=== PATIENT | female | born 1950 | race Caucasian/White ===

== ENCOUNTER 2021-12-18 08:16 | Outpatient (REF) | payer MEDICARE, SELFPAY ==
--- NOTE | ~2021-12-18 | MM_ITS ---
EXAMINATION: MM SCREENING DIGITAL BREAST TOMOSYNTHESIS, BILATERAL CLINICAL INFORMATION: Screening. Asymptomatic. The lifetime risk of breast cancer based on the Tyrer-Cuzick Model is 3%. COMPARISON: Mammography: 11/18/2018, 06/06/2017, 10/14/2016 TECHNIQUE: Digital breast tomosynthesis is performed in both the craniocaudal and mediolateral oblique views along with computer-aided detection (CAD). Synthesized 2D images are generated from the tomosynthesis. FINDINGS: There are scattered areas of fibroglandular density (ACR BI-RADS breast composition Category b). There are no significant masses, abnormal calcifications, or other abnormalities. No developing density or interval architectural abnormality. Intramammary nodes bilateral upper outer quadrants are stable. There are some scattered benign coarse and vascular calcifications again seen. The axilla and skin contours are unremarkable. No significant changes from prior studies. MM/MM tomosynthesis screening BI IMPRESSION: No mammographic evidence of malignancy. ASSESSMENT: BI-RADS 2: Benign RECOMMENDATION: Routine annual mammography screening. This patient's information was entered into a reminder system with a target due date for their next mammogram.
--- NOTE | ~2021-12-18 | MM_ITS ---
EXAMINATION: BONE DENSITOMETRY CLINICAL INDICATION: Asymptomatic menopausal state. COMPARISON: Previous BD dated 11/18/2018 and baseline BD dated 03/08/2009, spine. This is the patient's baseline examination for the left forearm. TECHNIQUE: Using a BAUNAT DXA System (software version: 13.1) manufactured by [employer], dual-energy x-ray absorptiometry was performed of the lumbar spine and left forearm radius 33%. The images are of good technical quality. Bilateral hip replacements preclude bone density measurement hips. Summary results are attached. FINDINGS: AP SPINE L1-L3 (excluding L4): The data of L1-L4 has been changed to exclude the L4 vertebral body, because degenerative changes at this level may cause overestimation of lumbar spine density. Current: BMD 1.424 g/cm2, Z-score 3.2, T-score 2.1, normal, 0.7% increase from previous, 4.4% increase from baseline (<5% change is not significant). Prior: BMD 1.414 g/cm2. Baseline: BMD 1.364 g/cm2. LEFT FOREARM RADIUS 33%: BMD 0.872 g/cm2, Z-score 1.9, T-score 0.0, normal. Prior: Not previously measured. IDENTIFIED RISK FACTORS: Menopause, low calcium intake, history of fracture (adult), tobacco use (current smoker). HISTORY OF FRACTURE: Other. MEDICATIONS: None listed. MM/XR DEXA axial skeleton IMPRESSION: 1. DIAGNOSIS: Normal bone density based on the lowest T-score value of 0.0 in the forearm radius 33% applying World Health Organization criteria. 2. 10-YEAR FRACTURE RISK PREDICTION, FRAX: According to the guidelines, FRAX calculation should only be performed on patients in the osteopenia bone density category, and with femoral neck density measurement. Therefore, FRAX was not performed on this patient. 3. Treatment Recommendations: NOF guidelines recommend consideration for treatment in postmenopausal women and men age 50 and older presenting with the following: -A hip or vertebral (clinical or morphometric) fracture. -T-score less than or equal to -2.5 at the femoral neck or spine after appropriate evaluation to exclude secondary causes. -Low bone mass at the hip or spine and a 10-year fracture probability by FRAX of greater than or equal to 3% for hip fracture or greater than or equal to 20% for major osteoporotic fracture based on the [place] adapted WHO algorithm. 4. Other Recommendations: All treatment decisions require clinical judgment and consideration of individual patient factors, including patient preferences, comorbidities, previous drug use, risk factors not captured in the FRAX model (e.g. frailty, falls, vitamin D deficiency, increased bone turnover, interval significant decline in bone density) and possible under or overestimation of fracture risk by FRAX. FUTURE SCAN RECOMMENDATION: People with diagnosed cases of osteoporosis or at high risk for fracture should have regular bone mineral density tests. For patients eligible for Medicare, routine testing is allowed once every 2 years. The testing frequency can be increased to one year for patients who have rapidly progressing disease, those who are receiving or discontinuing medical therapy to restore bone mass, or have additional risk factors.
== END 2021-12-18 08:17 | disposition home or self-care (01) ==
LOC: HO.MAMMO 08:16
PROVIDERS: PCP Internal Medicine; Visit Provider Internal Medicine
DX: Z12.31 Encounter for screening mammogram for malignant neoplasm of breast (principal); Z13.820 Encounter for screening for osteoporosis; Z78.0 Asymptomatic menopausal state
CPT/HCPCS: 77063; 77067; 77080

== ENCOUNTER 2022-02-06 08:48 | Outpatient (REF) | payer MEDICARE, SELFPAY ==
[2022-02-06 11:48] LABS: MANUAL DIFF FLAG NO
[2022-02-06 11:58] LABS: Basophils Absolute Auto 0.1 X10*3/uL (0.0-0.2); Eosinophils Absolute Auto 0.2 X10*3/uL (0.0-0.4); Eosinophils Percent Auto 3.3 % (0-4); Hematocrit 40.8 % (37.0-47.0); Imm Gran Abs Auto 0.02 X10*3/uL (0.00-0.03); Imm Gran Pct Auto 0.3 % (0.0-0.4); Lymphocytes Absolute Auto 2.1 X10*3/uL (1.2-4.9); Lymphocytes Percent Auto 29.8 % (20-40); Mean Corpuscular HGB Conc 31.9 g/dl (31.0-35.0); Mean Corpuscular Hemoglobin 31.1 pg (27.0-33.0); Mean Corpuscular Volume 97.6 fL (80.0-98.0); Mean Platelet Volume 11.9 fL (9.4-12.3); Monocytes Absolute Auto 0.6 X10*3/uL (0.1-1.2); Monocytes Percent Auto 9.1 % (2-11); Neutrophils Absolute Auto 3.9 x10*3/uL (2.0-8.3); Neutrophils Percent Auto 56.5 % (45-73); Platelet Count 290 X10*3/uL (160-400); Red Blood Count 4.18 X10*6/uL (4.20-5.50); Red Cell Distribution Width 12.4 % (11.0-16.0); White Blood Count 6.9 X10*3/uL (4.8-10.8)
[2022-02-06 12:50] LABS: Vitamin D 25-OH Total 24.2 ng/mL (>30)
[2022-02-06 12:53] LABS: Alanine Aminotransferase 11 U/L (0-31); Albumin Level 4.2 g/dL (3.5-5.0); Alkaline Phosphatase 70 U/L (39-117); Anion Gap 16 (12-20); Aspartate Amino Transferase 15 U/L (5-31); Bilirubin Total 0.4 mg/dL (0.0-1.0); Blood Urea Nitrogen 14 mg/dL (9-16); Calcium 9.6 mg/dL (8.4-10.2); Carbon Dioxide 25 mmol/L (22-29); Chloride 106 mmol/L (96-108); Cholesterol 179 mg/dL; Estimated Glomerular Filt Rate > 60; Glucose Fasting 102 mg/dL (60-99); HDL Cholesterol 61 mg/dL; LDL Cholesterol Calculated 100 mg/dl; Potassium 4.2 mmol/L (3.3-5.1); Sodium 143 mmol/L (135-145); Total Protein 6.6 g/dL (6.5-8.0); Triglycerides 93 mg/dL
== END 2022-02-06 08:49 | disposition home or self-care (01) ==
LOC: HO.HMGCLDS 08:48
PROVIDERS: PCP Internal Medicine; Visit Provider Internal Medicine
DX: I10 Essential (primary) hypertension (principal); E78.00 Pure hypercholesterolemia, unspecified; M85.80 Other specified disorders of bone density and structure, unspecified site
CPT/HCPCS: 36415; 80053; 80061; 82306; 85025

== ENCOUNTER 2022-06-05 07:18 | Day surgery (SDC) | payer MEDICARE, SELFPAY ==
--- NOTE | 2022-06-04 14:33 | P.CONAN_ITS ---
HPI - Anesthesia Eval Consult details Narrative: 72yo F for Colonoscopy [facility] Past Medical History Medical History (Updated 06/05/22 @ 07:38 by Jackelyn Prakash, RN) Anxiety Degenerative joint disease Elevated cholesterol HTN (hypertension) Low vitamin D level Surgical History Surgical History H/O colonoscopy S/P hip replacement Social History Social History Patient Tobacco Use Status: Current everyday Tobacco user Tobacco use type: Cigarette Cigarettes Per Day: 10 Use of substances other than those prescribed or required for medical reasons: No Are you DNR?: No Advance Directives: No Advance Directives Information Provided: Yes Meds Allergies Allergy/AdvReac Type Severity Reaction Status Date / Time No Known Allergies Allergy Unverified 01/25/20 15:09 [No Known Allergies*] Home Medications Medication Instructions Recorded Confirmed Last Taken Type aspirin 81 mg tablet,delayed 81 mg PO DAILY 06/04/22 06/04/22 05/29/22 History release bupropion HCl 150 mg tablet,12 hr 1 tab PO BID 06/04/22 06/04/22 Unknown History sustained-release cholecalciferol (vitamin D3) 25 25 mcg PO DAILY 06/04/22 06/04/22 Unknown History mcg (1,000 unit) capsule cyanocobalamin (vitamin B-12) 100 mcg 06/04/22 06/04/22 Unknown History mcg tablet (Vitamin B-12) lisinopril 5 mg tablet 1 tab PO DAILY 06/04/22 06/05/22 06/05/22 06:00 History simvastatin 40 mg tablet 1 tab PO DAILY 06/04/22 06/04/22 Unknown History Exam Exam Date and Time: June 04, 2022 1433 Pertinent Lab Results Pertinent Lab Results: Laboratory Tests 02/06/22 02/06/22 09:18 09:18 WBC 6.9 Hgb 13.0 Hct 40.8 Plt Count 290 Sodium 143 Potassium 4.2 Chloride 106 Carbon Dioxide 25 BUN 14 Creatinine 0.73 Assessment and Plan Assessment Anesthesia Assessment: Chart Reviewed
[2022-06-05 07:39] VITALS: BMI 30.7
[2022-06-05 07:45] VITALS: BP 139/84; PULSE 95; RESP 16; TEMP 37.1; O2SAT 95
[2022-06-05] MEDS: Lactated Ringers 1,000 ML 100 ML IVCONT (08:02)
--- NOTE | 2022-06-05 08:28 | MHC.SHP ---
Pre-Procedural Eval Section A Date of Service: 06/05/22 Section B Chief Complaint: Personal history of colonic polyps,screening Details of Present Illness: see H*P no changes Relevant Family History (Specify if Yes): No Relevant Social History: None Present Medications: see Short Stay Collaborative assessment Medical History: No relevant PMH History of Previous Operations: No relevant previous surgery Allergies: Allergies Allergy/AdvReac Type Severity Reaction Status Date / Time No Known Allergies Allergy Unverified 01/25/20 15:09 [No Known Allergies*] Review of Systems Sugical H&P ROS: Negative: Constitution, Cardiovascular, Respiratory, Neurological, Psychiatric, Hem-Onc, Allergic/Immunologic, Gastrointestinal, Genitourinary, Musculoskeletal, Integumentary, Endocrine and Eyes/Ears/Nose/Throat Exam Surgical H&P Exam: Normal: HEENT, Normal: Heart, Normal: Lungs, Normal: Extremities, Normal: Abdomen, Normal: Skin and Normal: Neurological Plan Diagnosis/Plan: Unchanged I have reviewed the history and physical and performed a pertinent physical examination on my patient. No changes have occurred unless specified. Time Spent With Patient Time: Total time managing care of this patient today ____ minutes.
[2022-06-05 09:05] VITALS: BP 98/58; PULSE 75; RESP 16; TEMP 36.4; O2SAT 96
--- NOTE | 2022-06-05 09:08 | PM.OP ---
Brief Operative Note Date of Service: 06/05/22 Pre-op diagnosis: screening Post-op diagnosis: same (colon polyp) Procedure: colonoscopy Surgeon: Farhad Torres Anesthesia: MAC Was an Party Plan Sales Unit Advisor used for this Procedure?: No Estimated blood loss (mL): 0 Pathology: other Condition: stable Disposition: PACU
[2022-06-05 09:25] VITALS: BP 113/62; PULSE 72; RESP 18; TEMP 36.1; O2SAT 99
--- NOTE | 2022-06-05 19:42 | OP_ITS ---
SURGEON: Farhad Torres MD INDICATIONS: Colon cancer screening and prior history of adenomatous colon polyps. PREOPERATIVE DIAGNOSIS: POSTOPERATIVE DIAGNOSIS: PROCEDURE PERFORMED: Colonoscopy to the terminal ileum with snare polypectomy. ESTIMATED BLOOD LOSS: COMPLICATIONS: ANESTHESIA: Monitored anesthesia care. ASSISTANTS: SPECIMENS: DESCRIPTION OF PROCEDURE: A history and physical was performed. The risks and benefits of the procedure were explained to the patient. Informed consent was obtained. The procedure was performed on 06/05/2022. The patient was placed in the left lateral decubitus position. A digital rectal exam was performed and it was found to be normal. The Olympus pediatric video colonoscope was introduced into the rectum and advanced to the cecum without difficulty. The cecum was identified by translumination, palpation, and identification of the ileocecal valve. Examination was performed. The scope was removed. She tolerated both procedures well, and returned to the recovery area in stable condition. FINDINGS: The terminal ileum was normal. The visualized colonic mucosa was within normal limits without evidence of masses or ulcers. Quality of the prep was good. There was mild sigmoid diverticulosis. At 20 cm from anal verge was an 8 mm polyp which was removed with snare and recovered via suction. No other polyps were identified. Retroflexed examination showed small internal hemorrhoids and some hypertrophic anal papillae. IMPRESSION: Colon polyp. RECOMMENDATION: Follow up the biopsy results. MD BLANKA Jones/ADRIAN / [id number]
== END 2022-06-05 09:52 | disposition home or self-care (01) ==
PROVIDERS: PCP Internal Medicine; Visit Provider Internal Medicine Gastroenterology
PROC: 0DJD8ZZ Inspection of Lower Intestinal Tract, Via Natural or Artificial Opening Endoscopic (ICD-10-PCS; CPT 45378; principal; 2022-06-05 08:40)
DX: Z12.11 Encounter for screening for malignant neoplasm of colon (principal); Z86.010 Personal history of colon polyps; D12.5 Benign neoplasm of sigmoid colon; K57.30 Diverticulosis of large intestine without perforation or abscess without bleeding; K64.8 Other hemorrhoids; K62.89 Other specified diseases of anus and rectum; I10 Essential (primary) hypertension; E78.00 Pure hypercholesterolemia, unspecified; E55.9 Vitamin D deficiency, unspecified; Z79.82 Long term (current) use of aspirin; Z79.899 Other long term (current) drug therapy; F17.210 Nicotine dependence, cigarettes, uncomplicated
CPT/HCPCS: 45385; 88305

== ENCOUNTER 2023-03-05 09:34 | Outpatient (AMB) | payer MEDICARE, SELFPAY ==
[2023-03-05 09:46] VITALS: BP 138/88; PULSE 93; TEMP 36.8; O2SAT 94; BMI 31.1
--- NOTE | 2023-03-05 09:46 | AM.OFFWIN_ITS ---
Intake Vital Signs 03/05/23 09:46 Height 5 ft 5 in Weight 187 lb BMI 31.1 BP 138/88 Blood Pressure Location Lt brachial Position Sitting Pulse 93 Pulse Source Pulse Oximeter Temp 98.2 F Temp Source Temporal Artery Scan Pulse Oximetry (%) 94 Oxygen Delivery Method Room Air Intake Visit Reasons: [facility] Cough, sinus (masked) Intake Note: pt is here for c/o cough and sinus congestion Patient Tobacco Use Status: Current everyday Tobacco user Allergies No Known Allergies [No Known Allergies*] Allergy (Verified 03/05/23 09:55) Do you need a note to return to daycare/school/sports/work: Yes HPI HPI Comments History of Present Illness Details This is a 73-year-old female with a past medical history of depression, hypertension and hyperlipidemia presenting for evaluation of a cough and sinus congestion that she has had for the past 1 week. The patient states that her cough is worse in the morning and it takes approximately 1 hour for her to clear her mucus. Patient has been taking Mucinex daily with increased clear fluids. Patient denies having any fevers, chills, chest pain or shortness of breath however does report poor sleep secondary to her cough. [facility] Medical History Anxiety Low vitamin D level Degenerative joint disease Elevated cholesterol HTN (hypertension) Surgical History S/P hip replacement H/O colonoscopy Social History Patient Tobacco Use Status: Current everyday Tobacco user Tobacco use type: Cigarette Cigarettes Per Day: 10 Review of Systems Const All systems reviewed & are unremarkable except as noted in HPI and below Denies chills, Reports fatigue, Denies fever(s) and Denies night sweats Eyes Reports as per HPI ENT Reports as per HPI Card Denies dyspnea and Denies dyspnea on exertion Resp Reports as per HPI, Reports chest congestion, Reports cough, Denies hemoptysis, Denies dyspnea, Denies dyspnea on exertion and Denies wheezing Neuro Reports no additional complaints Psych Reports no additional complaints Endo Reports no additional complaints and Reports fatigue Aller/Immun Denies wheezing Physical Exam Vital Signs: Last Vital Signs Temp 98.2 F 03/05/23 09:46 Pulse 93 03/05/23 09:46 BP 138/88 03/05/23 09:46 Pulse Ox 94 03/05/23 09:46 Oxygen Delivery Method Room Air 03/05/23 09:46 BMI result Body Mass Index 31.1 POX 94% on room air; afebrile Const General: cooperative, healthy appearing, comfortable and no acute distress; No ill appearing Nutritional Appearance: well nourished Orientation/consciousness: patient oriented x3 Limitations: no limitations HEENT Head: Yes normal to inspection Ears: hearing grossly normal bilaterally, external ears normal, TM's normal bilaterally and EAC's normal General nose exam: Normal external nose present Face and sinus: Yes normal facial exam and Yes sinuses nontender Mouth: Normal oral and palatal mucosa present and oropharynx normal Throat: Yes posterior oropharynx normal Eyes General: appearance normal, both eyes and all related structures Alignment and Position: alignment normal Eyelids: Yes eyelids normal Conjunctivae: conjunctivae normal Sclerae: sclerae normal Pupils: Equal, round and reactive pupils present EOM: EOMs intact bilaterally Neck Lymphatic: no lymphadenopathy noted Resp Effort & Inspection: normal respiratory effort, able to speak in complete sentences, no audible wheezes, no cough, no respiratory distress and other ( No tachypnea) Auscultation: no crackles, no rales, no rhonchi, no wheezes and diminished lung sounds on the left (base) Cardio Rate: regular rate Rhythm: regular rhythm Skin General skin exam: no rashes or lesions noted Neuro General: patient oriented x3 Cranial nerves: Yes Equal, round and reactive pupils present Psych Appearance: grossly normal Mental Status: mental status grossly normal Insight: Good insight present (Psych) Judgement: Good judgement present (Psych) Results Reviewed Results Reviewed: CXR reviewed with patient. Assessment & Plan Assessment & Plan (1) Cough: Code(s): R05.9 - Cough, unspecified Orders: Orders XR chest 2V Today R05.9 - Cough, unspecified Medications: New benzonatate 100 mg PO TID PRN 20 caps 0RF cough Patient Instructions: Patient to continue mucinex daily and patient will be prescribed tessalon for additional management of her cough; there are no infiltrates noted on imaging. Coding Level of Care Code Est Pt Level 3 (17911) Diagnoses Cough R05.9 Time Spent (min) 20
== END 2023-03-05 10:30 | disposition home or self-care (01) ==
PROVIDERS: PCP Internal Medicine; Visit Provider Physician Assistant
DX: R05.9 Cough, unspecified (principal)
CPT/HCPCS: 99213

== ENCOUNTER 2023-03-05 10:12 | Outpatient (REF) | payer MEDICARE, SELFPAY ==
--- NOTE | ~2023-03-05 | XR_ITS ---
EXAMINATION: XR CHEST CLINICAL INFORMATION: Cough COMPARISON: None available. TECHNIQUE: 2 views of the chest were obtained. FINDINGS: Heart size within normal limits. Mediastinum is unremarkable. Aortic calcifications are seen. Mild bibasilar atelectasis. No vascular congestion, consolidations or effusions. Degenerative changes. XR/XR chest 2V IMPRESSION: Mild basilar atelectasis.
== END 2023-03-05 10:13 | disposition home or self-care (01) ==
LOC: HO.HMGCX 10:12
PROVIDERS: PCP Internal Medicine; Visit Provider Physician Assistant
DX: R05.9 Cough, unspecified (principal)
CPT/HCPCS: 71046

== ENCOUNTER 2023-06-05 10:12 | Inpatient (IN) | payer MEDICARE, SELFPAY ==
[2023-06-05] VITALS (10 sets, daily range): BP systolic 139–170; BP diastolic 67–79; PULSE 85–100; RESP 20; TEMP 36–37.2; O2SAT 88–93; BMI 30.4; BMI 31.5
--- NOTE | ~2023-06-05 | CT_ITS ---
EXAMINATION: CT ANGIOGRAM OF THE CHEST WITH AND WITHOUT CONTRAST (CT PULMONARY ANGIOGRAM FOR PE) CLINICAL INFORMATION: Reason for Exam + dimer sob hypoxia COMPARISON: None available. TECHNIQUE: Prior to contrast administration, noncontrast localization images were obtained. Subsequently, multidetector volumetric imaging was performed from the thoracic inlet to below the diaphragms following the administration of 65 mL Omnipaque 350 intravenous contrast. No contrast reaction reported Sagittal, coronal, and MIP oblique sagittal reformatted images were obtained on the CT workstation, uploaded to PACS, and reviewed. This CT examination was performed using dose optimization techniques as appropriate, variously including the following: *Automated exposure control *Adjustment of mA and/or kV according to patient size (this includes techniques or standardized protocols for targeted exams where dose is matched to indication/reason for exam; i.e. extremities or head) *Use of iterative reconstruction technique Total exam dose-length product 132 mGy-cm FINDINGS: QUALITY OF STUDY/CONTRAST BOLUS: Satisfactory. PULMONARY ARTERIES: No pulmonary emboli. THORACIC AORTA: No aneurysm. LUNG: Bilateral bronchial wall thickening. Mild bronchiectasis with filling defects in peripheral bronchi most notably involving the lower lobes. Small bibasilar dependent airspace disease. No suspicious nodule identified. PLEURA: No pleural effusion or pneumothorax. MEDIASTINUM: Normal heart size. Calcification of the aortic valve. No pericardial effusion. 1.4 cm precarinal lymph node (image 21, series 5). 1.4 cm subcarinal node (image 24). 1.2 cm right hilar node (image 29). 1.0 cm left hilar node (image 25). No evidence of septal bowing or right heart strain. Uncoiled aorta, suggesting hypertension. CORONARY ARTERY CALCIFICATION: Mild. CHEST WALL/AXILLA: No axillary or internal mammary lymphadenopathy by size criteria. OSSEOUS STRUCTURES: No acute finding. Degenerative changes of the shoulders and spine. UPPER ABDOMEN: Subcentimeter gallstone. No evidence of gallbladder wall thickening or pericholecystic inflammatory change. No reflux of contrast into the hepatic veins to suggest elevated right heart pressures. CT/CT angio chest PE protocol IMPRESSION: No evidence of pulmonary embolism. Bilateral bronchial wall thickening. Mild bronchiectasis with filling defects in peripheral bronchi most notably involving the lower lobes, possibly representing inspissated secretions and/or aspirated material. Small bibasilar dependent airspace disease suggesting infiltrates and/or atelectasis. Mild mediastinal and bilateral hilar adenopathy, nonspecific, possibly reactive. Additional findings, as above. VTE: negative
--- NOTE | ~2023-06-05 | XR_ITS ---
EXAMINATION: XR CHEST CLINICAL INFORMATION: Shortness of breath. COMPARISON: Chest radiograph 03/05/2023. TECHNIQUE: 2 views of the chest were obtained. FINDINGS: Stable cardiomediastinal silhouette. Increased diffuse interstitial coarsening with subtle more bibasilar airspace infiltrates. Small bilateral pleural effusions best visualized on the lateral view. No pneumothorax. Thoracic spondylosis. No acute osseous findings. XR/XR chest 2V IMPRESSION: Findings are suggestive of an atypical infectious/inflammatory process with early infiltrates in the lower lungs as well as a small left-sided pleural effusion.
--- NOTE | 2023-06-05 10:26 | ECG_ITS ---
Test Reason : SOB Blood Pressure : / mmHG Vent. Rate : 094 BPM Atrial Rate : 094 BPM P-R Int : 132 ms QRS Dur : 088 ms QT Int : 346 ms P-R-T Axes : 065 051 050 degrees QTc Int : 432 ms Sinus rhythm with Premature supraventricular complexes Nonspecific ST abnormality Abnormal ECG No previous ECGs available Referred By: Graciela Almazan Electronically Signed By:Shamar Senior
--- NOTE | 2023-06-05 11:00 | PC.NURSE ---
pt alert and oriented. comes to ED with SOB and cough for 1.5 weeks. reports DON and weakness. Reports swelling in feet increased from baseline, non pitting. denies CP, n/v/d. Pt is a smoker, no diagnosed COPD per pt. pt found to be 88% spO2 on RA, placed on 2.5 L, satting 91-93%. EKG done, IV inserted and labs drawn.
[2023-06-05 11:02] LABS: MANUAL DIFF FLAG NO
[2023-06-05 11:04] LABS: Basophils Absolute Auto 0.1 X10*3/uL (0.0-0.2); Basophils Percent Auto 0.6 % (0-2); Eosinophils Percent Auto 0.3 % (0-4); Hematocrit 36.4 % (37.0-47.0); Hemoglobin 12.8 g/dl (12.0-16.0); Imm Gran Abs Auto 0.09 X10*3/uL (0.00-0.03); Lymphocytes Absolute Auto 1.2 X10*3/uL (1.2-4.9); Lymphocytes Percent Auto 12.9 % (20-40); Mean Corpuscular HGB Conc 35.2 g/dl (31.0-35.0); Mean Corpuscular Hemoglobin 32.3 pg (27.0-33.0); Mean Corpuscular Volume 91.9 fL (80.0-98.0); Mean Platelet Volume 11.2 fL (9.4-12.3); Monocytes Absolute Auto 1.3 X10*3/uL (0.1-1.2); Monocytes Percent Auto 14.7 % (2-11); Neutrophils Absolute Auto 6.4 x10*3/uL (2.0-8.3); Neutrophils Percent Auto 70.5 % (45-73); Platelet Count 285 X10*3/uL (160-400); Red Blood Count 3.96 X10*6/uL (4.20-5.50); Red Cell Distribution Width 11.4 % (11.0-16.0); White Blood Count 9.1 X10*3/uL (4.8-10.8)
[2023-06-05 11:24] LABS: COVID-19 Test Negative (Negative); IDNOW Serial# 08D9AD1C; IDNOW Serial# 152EDE1D; Influenza A Negative (Negative); Influenza B2 Negative (Negative)
[2023-06-05] MEDS: Albuterol Sulfate 2.5 MG, Albuterol/Iprat 2.5/0.5MG 3 ML 3 ML INHALE (11:24)
[2023-06-05 11:28] LABS: Alanine Aminotransferase 50 U/L (0-31); Albumin Level 3.8 g/dL (3.5-5.0); Alkaline Phosphatase 96 U/L (39-117); Anion Gap 14 (12-20); Aspartate Amino Transferase 70 U/L (5-31); Bilirubin Direct 0.3 mg/dL (0.0-0.5); Bilirubin Total 0.6 mg/dL (0.0-1.0); Blood Urea Nitrogen 12 mg/dL (9-16); Calcium 9.8 mg/dL (8.4-10.2); Carbon Dioxide 29 mmol/L (22-29); Chloride 92 mmol/L (96-108); Creatinine Clr Calc Pharmacy 77.3; Estimated Glomerular Filt Rate > 60; Glucose Random 161 mg/dL (60-115); Potassium 3.5 mmol/L (3.3-5.1); Sodium 131 mmol/L (135-145); Total Protein 7.1 g/dL (6.5-8.0)
[2023-06-05 11:38] LABS: B Type Natriuretic Peptide 63 pg/mL (<100)
[2023-06-05 11:38] LABS: D Dimer High Sensitivity 392 NG/ML
--- NOTE | 2023-06-05 12:06 | ED.GENADULT ---
HPI - General Adult General Chief complaint: Upper Respiratory Symptoms Stated complaint: cold like symptoms Time Seen by Provider: 06/05/23 11:06 Source: patient and family (daughter ) Mode of arrival: ambulatory Limitations: no limitations History of Present Illness HPI narrative: 73 year old female hx of HLD, HTN presents w/ cough, shortness of breath ( worse w/ exertion) for about a week worsening. Reports cough is very uncomfortable and nonproductive in nature. Reports recent viral illness that just seems to not be going away. Also hasnt been moving around as much as usual due to sob therefore has noter her LE have both been more swollen than usual ( feet and ankles ). No recent sick contacts. Doesn't wear home O2. Not a smoker quit 2 weeks ago. No fevers, chills, cp, n/v/d, abd pain, headache. Related Data Home Medications Medication Instructions Recorded Confirmed aspirin 81 mg tablet,delayed 81 mg PO DAILY 06/04/22 06/04/22 release bupropion HCl 150 mg tablet,12 hr 1 tab PO BID 06/04/22 06/04/22 sustained-release cholecalciferol (vitamin D3) 25 25 mcg PO DAILY 06/04/22 06/04/22 mcg (1,000 unit) capsule cyanocobalamin (vitamin B-12) 100 mcg 06/04/22 06/04/22 mcg tablet (Vitamin B-12) lisinopril 5 mg tablet 1 tab PO DAILY 06/04/22 06/05/22 simvastatin 40 mg tablet 1 tab PO DAILY 06/04/22 06/04/22 Previous Rx's Medication Instructions Recorded benzonatate 100 mg capsule 100 mg PO TID PRN cough #20 caps 03/05/23 Allergies Allergy/AdvReac Type Severity Reaction Status Date / Time No Known Allergies Allergy Verified 03/05/23 09:55 [No Known Allergies*] Review of Systems Review of Systems: Constitutional : No Weight loss, No Fever, No Chills, + Fatigue, + Malaise ENT/Mouth : No sore throat, No Rhinorrhea Eyes: No Eye Pain, No Swelling, No Redness Cardiovascular : No Chest Pain, + SOB, + Dyspnea on Exertion, No Orthopnea, No Edema, No Palpitations Respiratory : + Cough, No Sputum, + Wheezing Gastrointestinal : No Nausea, No Vomiting, No Diarrhea, No Constipation, No abdominal Pain, No Hematochezia, No Melena Genitourinary : No Dysuria, No Urinary Frequency, No Hematuria, Musculoskeletal : No joint pain, No Myalgias, No Joint Swelling Skin : No Skin Lesions, No rash Neuro : No Weakness, No Numbness, No Dizziness, No Headache Psych : No Anxiety/Panic, No Depression All other systems reviewed and are negative Yes all other systems are reviewed and are negative [facility] Past Medical History Attestation statement: The following information was validated with the patient. Source: old records reviewed and nursing notes reviewed Medical History Anxiety Low vitamin D level Degenerative joint disease Elevated cholesterol HTN (hypertension) Surgical History S/P hip replacement H/O colonoscopy Social History Social History Patient Tobacco Use Status: Current everyday Tobacco user Tobacco use type: Cigarette Cigarettes Per Day: 10 Smoked in Last 30 Days: Yes Use of substances other than those prescribed or required for medical reasons: No Advance Directives: No Advance Directives Information Provided: No Physical Exam ED Vital Signs: Vital Signs - 24 hr 06/05/23 10:23 06/05/23 10:45 06/05/23 10:57 Temperature 98.8 F Pulse Rate 95 85 Respiratory Rate 20 20 Blood Pressure 154/79 H Pulse Oximetry 90 L 88 L 88 L Oxygen Delivery Method Room Air Room Air Room Air Oxygen Flow Rate 06/05/23 10:58 06/05/23 11:26 06/05/23 11:58 Temperature 98.5 F Pulse Rate 88 89 88 Respiratory Rate 20 20 20 Blood Pressure 144/76 H Pulse Oximetry 93 93 Oxygen Delivery Method Nasal Cannula Room Air Oxygen Flow Rate 2.5 3 BMI result Body Mass Index 30.4 hypoxia --> placed on 2.5 L NC Appearance: Alert.? Oriented X3.? No acute distress.? Head: Normocephalic, atraumatic, no step-offs or deformities Eyes: Pupils equal, round and reactive to light.? ENT: Pharynx normal.? Neck: Normal inspection.? Neck supple.? CVS: Normal heart rate and rhythm.? Pulses normal.? Respiratory: No respiratory distress.? Breath sounds w/ bl LE crackles w/ b/l moderate wheezing. Abdomen: Soft and nontender.? Skin: Skin warm and dry.? Normal skin color.? Normal skin turgor.? Extremities: No lower extremity edema.? No calf ttp. 5/5 strength to bilateral upper and lower extremities Neuro: Oriented X 3.? No motor deficit.? No sensory deficit. CN 2-12 intact Course Reevaluation(s) Reevaluation #1: CBC unremarkable. Chemistry with low sodium, normal saline ordered. BNP within normal limits. Influenza and Covid negative. Troponin pending, lactic acid pending . EKG also pending. Age adjusted D-dimer still + --> CTA ordered. Spoke to hospitalist looking to admit for pna w/ hypoxia. Patient aware. Hospitalist will admit. Aware that CTA is pending. Time: 12:15 Medications Administered Discontinued Medications Generic Name Dose Route Start Last Admin Trade Name Freq PRN Reason Stop Dose Admin Albuterol Sulfate 2.5 mg/ 0 mg 06/05/23 11:22 06/05/23 11:24 Albuterol/Ipratropium 3 ml INHALE 06/05/23 11:23 5 dose ONCE ONE Administration Medical Decision Making Medical Decision Making MDM Narrative: 73 yo f presents w/ cough, sob s/p viral illness PE w/ hypoxia and Breath sounds w/ bl LE crackles w/ b/l moderate wheezing. Suspected pneumonia versus bronchitis with acute hypoxic respiratory failure. Unlikely pulmonary embolism, ACS, dissection, pneumothorax. Plan at this time labs, imaging. Differential Diagnosis Differential Diagnoses: The differential diagnosis associated with the presentation includes Suspected pneumonia versus bronchitis with acute hypoxic respiratory failure. Unlikely pulmonary embolism, ACS, dissection, pneumothorax. Admission/Observation Consideration of admission/observation: Escalation of care including admission/observation considered Likely Consult Healthcare Provider Management of the patient was discussed with: Hospitalist Lab Data [facility] Lab Attestation statement: I reviewed the patient's lab results. 06/05/23 10:52 06/05/23 10:52 Labs: Lab Results 06/05/23 06/05/23 06/05/23 Range/Units 10:51 10:52 11:20 WBC 9.1 (4.8-10.8) X10*3/uL RBC 3.96 L (4.20-5.50) X10*6/uL Hgb 12.8 (12.0-16.0) g/dl Hct 36.4 L (37.0-47.0) % MCV 91.9 (80.0-98.0) fL MCH 32.3 (27.0-33.0) pg MCHC 35.2 H (31.0-35.0) g/dl RDW 11.4 (11.0-16.0) % Plt Count 285 (160-400) X10*3/uL MPV 11.2 (9.4-12.3) fL Immature Gran % (Auto) 1.0 H (0.0-0.4) % Neut % (Auto) 70.5 (45-73) % Lymph % (Auto) 12.9 L (20-40) % Armstrong % (Auto) 14.7 H (2-11) % Eos % (Auto) 0.3 (0-4) % Baso % (Auto) 0.6 (0-2) % Lymph # (Auto) 1.2 (1.2-4.9) X10*3/uL Armstrong # (Auto) 1.3 H (0.1-1.2) X10*3/uL Eos # (Auto) 0.0 (0.0-0.4) X10*3/uL Baso # (Auto) 0.1 (0.0-0.2) X10*3/uL Abs Immat Gran (auto) 0.09 H (0.00-0.03) X10*3/uL Absolute Neuts (auto) 6.4 (2.0-8.3) x10*3/uL Absolute Nucleated RBC 0.000 (0.0-0.012) X10*3/uL Nucleated RBC % (auto) 0.0 (0.0-0.2) /100WBC D-Dimer High Sensitivty 392 NG/ML Sodium 131 L (135-145) mmol/L Potassium 3.5 (3.3-5.1) mmol/L Chloride 92 L (96-108) mmol/L Carbon Dioxide 29 (22-29) mmol/L Anion Gap 14 (12-20) BUN 12 (9-16) mg/dL Creatinine 0.69 (0.5-1.4) mg/dL Estim Creat Clear Calc 77.3 Estimated GFR > 60 Random Glucose 161 H (60-115) mg/dL Calcium 9.8 (8.4-10.2) mg/dL Magnesium 2.0 (1.6-2.6) mg/dL Total Bilirubin 0.6 (0.0-1.0) mg/dL Direct Bilirubin 0.3 (0.0-0.5) mg/dL AST 70 H (5-31) U/L ALT 50 H (0-31) U/L Alkaline Phosphatase 96 (39-117) U/L B-Natriuretic Peptide 63 (<100) pg/mL Total Protein 7.1 (6.5-8.0) g/dL Albumin 3.8 (3.5-5.0) g/dL COVID-19 ([place]) Negative (Negative) COVID-19 Clin Com See Note Influenza Type A (DANIELA) Negative (Negative) Influenza Type B (DANIELA) Negative (Negative) Influenza A & B Note See Note Independent Interpretation I performed an independent interpretation of an: EKG and Plain X-Ray (XR/XR chest 2V IMPRESSION: Findings are suggestive of an atypical infectious/inflammatory process with early infiltrates in the lower lungs as well as a small left-sided pleural effusion.) Radiology Impression Discussion of test interpretation with radiology: I have reviewed the radiologist's reading. Independent Historian Clinical information obtained from an independent historian. History obtained from or confirmed by: Other (daughter ) External Record Review External record reviewed: Inpatient record, Office record, Outpatient record, Prior outpatient labs, Prior outpatient radiology and Primary care record Prescription Management I considered prescription management with: Antibiotic Critical Care Time Critical Care Time Critical Care Time: Yes Total Critical Care Time: 35 Attestation: I attest to this time spent taking care of the patient, obtaining history, physical, reviewing labs, imaging, speaking to my attending, speaking to specialist. Discharge Plan Discharge Clinical Impression: Pneumonia, Hypoxia Patient Disposition: Admitted As Inpatient Prescriptions: No Action bupropion HCl 150 mg tablet sustained-release 12 hr 1 tab PO BID cyanocobalamin (vitamin B-12) [Vitamin B-12] 100 mcg Tablet aspirin [Aspir-81] 81 mg Tablet,Delayed Release (Dr/Ec) 81 mg PO DAILY simvastatin 40 mg tablet 1 tab PO DAILY lisinopril 5 mg tablet 1 tab PO DAILY cholecalciferol (vitamin D3) 25 mcg (1,000 unit) Capsule 25 mcg PO DAILY benzonatate 100 mg capsule 100 mg PO TID PRN (Reason: cough) Qty: 20 0RF
[2023-06-05 12:15] LABS: Troponin-I High Sensitivity 6.9 ng/L (<3.5-17.0)
[2023-06-05] MEDS: methylPREDNISolone Sod Succ 125 MG/2 ML VIAL IVPUSH (12:16)
[2023-06-05] MEDS: cefTRIAXone sodium 1 GM in 0.9 % Sodium Chloride 50 ML IV (12:17)
--- NOTE | 2023-06-05 12:19 | PC.NURSE ---
crackles in lung bases. BC sent to lab, ABX infusing per jul. pt on 2L o2 to keep saturation above 90%
--- NOTE | 2023-06-05 12:41 | PHA.MEDREC ---
Pharmacy Consult ? Medication Reconciliation Pharmacy has completed the medication reconciliation.
--- NOTE | 2023-06-05 12:58 | PM.IMHP ---
History of Present Illness Date of Service: 06/05/23 Attending physician on admission: Carla Yi Chief Complaint: SOB, cough Pt is a 73-year-old female with a PMH significant for?HTN, HLD, lifelong smoker with 30+ pack year hx recently quit two weeks ago, and with no formal COPD diagnosis not on home inhalers or O2 who presents to the ED with?worsening cough, difficulty breathing, and shortness of breath x1 week. Patient states symptoms began 1 week ago when she developed a ?cold? that then turned ?bronchial?. However, patient's condition continued to decline rather than improve: Experienced worsening shortness of breath, wet sounding but nonproductive cough, difficulty breathing, and DELUNA. Patient also experienced increased lower leg edema starting on Wednesday of this week. Patient has been feeling fatigued and not eating or drinking much, and has been spending most of her time resting in bed and not ambulating. Symptoms were worse this morning which prompted her visit to the ED for evaluation. Complains of some chest tightness associated with breathing and cough, but denies chest pain or pressure or palpitations. No fever or chills. Denies nausea, vomiting, abdominal pain. Denies orthopnea. In the ED pt was afebrile, but tachycardic up to 95, hypertensive up to 154/79, and satting as low as 88% on RA. Labs were significant for D-dimer slightly elevated at 392, sodium 131, chloride 92, AST 70, and ALT 50. No leukocytosis. Renal function baseline. Lactic acid WNL at 1.0. BNP WNL at 63. Tested negative for COVID, influenza a and B. CXR showed findings that are suggestive of an atypical infectious/inflammatory process with early infiltrates in the lower lungs as well as a small left-sided pleural effusion. CTA pending. Pt was treated with DuoNebs, Solu-Medrol ceftriaxone, and azithromycin. Pt will be admitted to the hospital for treatment and further evaluation of acute hypoxic respiratory failure in the setting of community-acquired pneumonia. Review of Systems Review of Systems: Shortness of breath, DELUNA Wet sounding, nonproductive Fatigue, anorexia Lower leg edema Chest tightness associated with breathing and cough Denies fever, chills, nausea, vomiting, abdominal pain No chest pain/pressure, palpitations [facility] Medical History Anxiety Low vitamin D level Degenerative joint disease Elevated cholesterol HTN (hypertension) Surgical History S/P hip replacement H/O colonoscopy Social History Patient Tobacco Use Status: Current everyday Tobacco user Tobacco use type: Cigarette Cigarettes Per Day: 10 Smoked in Last 30 Days: Yes Use of substances other than those prescribed or required for medical reasons: No Advance Directives: No Advance Directives Information Provided: No Meds Allergies Allergy/AdvReac Type Severity Reaction Status Date / Time No Known Allergies Allergy Verified 03/05/23 09:55 [No Known Allergies*] Active Medications: Current Medications Acetaminophen (Acetaminophen 325 Mg Tablet) 650 mg PO Q6H PRN PRN Reason: Pain, Mild (Pain Scale 1-3) Benzonatate (Benzonatate 100 Mg Capsule) 100 mg PO TID PRN PRN Reason: Cough Enoxaparin Sodium (Enoxaparin Sodium 40 Mg/0.4 Ml Syringe) 40 mg SUBCUT Q24H JG Azithromycin 500 mg/ Sodium (Chloride) 250 mls @ 125 mls/hr IV ONCE ONE Stop: 06/05/23 14:04 Sodium Chloride (Ns) 1,000 mls @ 999 mls/hr IV .Q1H1M ONE Stop: 06/05/23 13:24 Melatonin (Melatonin 3 Mg Tablet) 6 mg PO BEDTIME PRN PRN Reason: Insomnia Ondansetron HCl (Ondansetron Hcl 4 Mg/2 Ml Vial) 4 mg IVPUSH Q8H PRN PRN Reason: Nausea and Vomiting Sodium Chloride (0.9 % Sodium Chloride Flush 3 Ml Syringe) 3 ml IVFLUSH QSHIFT [facility] Home Medications Medication Instructions Recorded Confirmed Last Taken Type aspirin 81 mg tablet,delayed 81 mg PO DAILY 06/04/22 06/05/23 06/05/23 09:00 History release bupropion HCl 150 mg tablet,12 hr 1 tab PO DAILY 06/04/22 06/05/23 06/05/23 09:00 History sustained-release cholecalciferol (vitamin D3) 25 25 mcg PO DAILY 06/04/22 06/05/23 06/05/23 09:00 History mcg (1,000 unit) capsule cyanocobalamin (vitamin B-12) 100 100 mcg PO DAILY 06/04/22 06/05/23 06/05/23 09:00 History mcg tablet (Vitamin B-12) lisinopril 5 mg tablet 1 tab PO DAILY 06/04/22 06/05/23 06/05/23 09:00 History simvastatin 40 mg tablet 1 tab PO DAILY 06/04/22 06/05/23 06/05/23 09:00 History Physical Exam Vital Signs and Narrative: Vital Signs: Last Vital Signs Temp 98.5 F 06/05/23 11:58 Pulse 88 06/05/23 11:58 Resp 20 06/05/23 11:58 BP 144/76 H 06/05/23 11:58 Pulse Ox 93 06/05/23 11:58 O2 Del Method Room Air 06/05/23 11:58 O2 Flow Rate 3 06/05/23 11:58 BMI result Body Mass Index 30.4 Constitutional: Alert, in no acute distress. Mental Status: Oriented to person, place and time. Eyes: Pupils are equal, round, and reactive to light. Ear, Nose, and Throat: Oropharynx clear, mucous membranes moist. Ears and nose without deformities. Trachea midline. Respiratory: Diffuse bilateral wheezing, pt with wet-sounding cough. Cardiovascular: S1, S2 regular. No murmurs, rubs, or gallops. Gastrointestinal: Abdomen soft, non-tender, non-distended. Normal bowel sounds. Neurologic: Cranial nerves II-XII are grossly intact bilaterally. No focal neurological deficits. Moves all extremities spontaneously. Skin: Warm, dry. Musculoskeletal: No cyanosis or clubbing. Extremities: Non-pitting bilateral lower leg edema. Psychiatric: Normal mood and affect. Results Labs 06/05/23 10:52 06/05/23 10:52 Labs: Laboratory Results - last 24 hr 06/05/23 06/05/23 06/05/23 10:51 10:52 11:20 MCV 91.9 MCH 32.3 MCHC 35.2 H RDW 11.4 Plt Count 285 MPV 11.2 Immature Gran % (Auto) 1.0 H Neut % (Auto) 70.5 Lymph % (Auto) 12.9 L Gilmer % (Auto) 14.7 H Eos % (Auto) 0.3 Baso % (Auto) 0.6 Lymph # (Auto) 1.2 Gilmer # (Auto) 1.3 H Eos # (Auto) 0.0 Baso # (Auto) 0.1 Abs Immat Gran (auto) 0.09 H Absolute Neuts (auto) 6.4 Absolute Nucleated RBC 0.000 Nucleated RBC % (auto) 0.0 D-Dimer High Sensitivty 392 Anion Gap 14 Estim Creat Clear Calc 77.3 Estimated GFR > 60 Random Glucose 161 H Lactic Acid Calcium 9.8 Magnesium 2.0 Total Bilirubin 0.6 Direct Bilirubin 0.3 AST 70 H ALT 50 H Alkaline Phosphatase 96 B-Natriuretic Peptide 63 Total Protein 7.1 Albumin 3.8 COVID-19 ([place]) Negative COVID-19 Clin Com See Note Influenza Type A (DANIELA) Negative Influenza Type B (DANIELA) Negative Influenza A & B Note See Note 06/05/23 11:57 MCV MCH MCHC RDW Plt Count MPV Immature Gran % (Auto) Neut % (Auto) Lymph % (Auto) Gilmer % (Auto) Eos % (Auto) Baso % (Auto) Lymph # (Auto) Gilmer # (Auto) Eos # (Auto) Baso # (Auto) Abs Immat Gran (auto) Absolute Neuts (auto) Absolute Nucleated RBC Nucleated RBC % (auto) D-Dimer High Sensitivty Anion Gap Estim Creat Clear Calc Estimated GFR Random Glucose Lactic Acid 1.0 Calcium Magnesium Total Bilirubin Direct Bilirubin AST ALT Alkaline Phosphatase B-Natriuretic Peptide Total Protein Albumin COVID-19 ([place]) COVID-19 Clin Com Influenza Type A (DANIELA) Influenza Type B (DANIELA) Influenza A & B Note Imaging Radiologist's Impressions: Impressions Chest X-Ray 06/05/23 10:38 IMPRESSION: Findings are suggestive of an atypical infectious/inflammatory process with early infiltrates in the lower lungs as well as a small left-sided pleural effusion. Assessment and Plan (1) Hypoxia: Status: Acute (2) Pneumonia: Status: Acute Plan Pt is a 73-year-old female with a PMH significant for?HTN, HLD, lifelong smoker with 30+ pack year hx recently quit two weeks ago, and with no formal COPD diagnosis not on home inhalers or O2 who presents to the ED with?worsening cough, difficulty breathing, and shortness of breath x1 week. Pt will be admitted to the hospital for treatment and further evaluation of acute hypoxic respiratory failure in the setting of community-acquired pneumonia. Acute hypoxic respiratory failure in the setting of community-acquired pneumonia Patient with worsening SOB, cough, DELUNA x1 week, satting at 88% on RA, CXR with evidence of pneumonia Patient does not meet sepsis criteria: Tachycardia, but no tachypnea, fever, or leukocytosis; lactic acid WNL at 1.0 Will treat with ceftriaxone and azithromycin, started 06/05/2023 Will also treat with DuoNebs, Solu-Medrol, benzonatate Titrate supplemental O2>92, wean as tolerated HTN Continue lisinopril HLD Continue statin Full Code Attending:?Dr. Yi DVT Prophylaxis: Lovenox Pt will require a hospitalization of at least two nights for treatment of?acute hypoxic respiratory failure in the setting of community acquired pneumonia. Patient will require supplemental oxygen and administration of IV antibiotics. Quality Stroke Does the patient have a stroke diagnosis?: No VTE Prior VTE?: No VTE Risk Level:: Medical - moderate - high VTE Device Contraindication: Treatment Not Indicated VTE Drug Contraindication: N/A - Med Ordered
[2023-06-05] MEDS: Enoxaparin Sodium 40 MG/0.4 ML SYRINGE SUBCUT (14:22)
[2023-06-05] MEDS: 0.9 % Sodium Chloride 1,000 ML 999 ML IV (14:22)
[2023-06-05] MEDS: Benzonatate 100 MG CAPSULE PO ×2 (14:22→21:04)
[2023-06-05] MEDS: Azithromycin 500 MG in 0.9 % Sodium Chloride 250 ML 125 MG IV (14:22)
[2023-06-05] MEDS: Acetaminophen 325 MG TABLET 650 MG PO (21:03)
[2023-06-05] MEDS: 0.9 % Sodium Chloride Flush 3 ML SYRINGE IVFLUSH (21:04)
[2023-06-06 03:35] VITALS: BP 131/70; PULSE 80; RESP 18; TEMP 36.7; O2SAT 96
[2023-06-06 06:10] LABS: MANUAL DIFF FLAG NO
[2023-06-06 06:29] LABS: Anion Gap 11 (12-20); Blood Urea Nitrogen 9 mg/dL (9-16); Calcium 9.6 mg/dL (8.4-10.2); Carbon Dioxide 31 mmol/L (22-29); Chloride 98 mmol/L (96-108); Creatinine Clr Calc Pharmacy 80.9; Estimated Glomerular Filt Rate > 60; Glucose Random 201 mg/dL (60-115); Potassium 4.2 mmol/L (3.3-5.1); Sodium 136 mmol/L (135-145)
[2023-06-06 06:30] LABS: Basophils Absolute Auto 0.1 X10*3/uL (0.0-0.2); Basophils Percent Auto 0.5 % (0-2); Hematocrit 33.9 % (37.0-47.0); Hemoglobin 11.6 g/dl (12.0-16.0); Imm Gran Pct Auto 1.9 % (0.0-0.4); Lymphocytes Absolute Auto 1.2 X10*3/uL (1.2-4.9); Lymphocytes Percent Auto 11.8 % (20-40); Mean Corpuscular HGB Conc 34.2 g/dl (31.0-35.0); Mean Corpuscular Volume 93.4 fL (80.0-98.0); Mean Platelet Volume 11.4 fL (9.4-12.3); Monocytes Absolute Auto 0.9 X10*3/uL (0.1-1.2); Monocytes Percent Auto 8.1 % (2-11); Neutrophils Absolute Auto 8.2 x10*3/uL (2.0-8.3); Neutrophils Percent Auto 77.7 % (45-73); Platelet Count 280 X10*3/uL (160-400); Red Blood Count 3.63 X10*6/uL (4.20-5.50); Red Cell Distribution Width 11.7 % (11.0-16.0); White Blood Count 10.5 X10*3/uL (4.8-10.8)
[2023-06-06] MEDS: Benzonatate 100 MG CAPSULE PO ×2 (07:14→15:48)
[2023-06-06 08:00] VITALS: BP 141/72; PULSE 79; RESP 20; TEMP 36.4; O2SAT 94
[2023-06-06] MEDS: 0.9 % Sodium Chloride Flush 3 ML SYRINGE IVFLUSH ×3 (08:44→21:09)
[2023-06-06] MEDS: lisinopriL 5 MG TABLET PO (08:45)
[2023-06-06] MEDS: Cholecalciferol (Vitamin D3) 25 MCG TABLET PO (08:45)
[2023-06-06] MEDS: Cyanocobalamin (Vitamin B-12) 100 MCG TABLET PO (08:45)
[2023-06-06] MEDS: Atorvastatin Calcium 20 MG TABLET PO (08:45)
[2023-06-06] MEDS: buPROPion HCl XL 150 MG TAB.ER.24H PO (08:46)
[2023-06-06] MEDS: Aspirin Enteric Coated 81 MG TABLET.DR PO (08:46)
[2023-06-06 10:28] LABS: Appearance Urine Clear; Color Urine Yellow; Glucose Urine UA Negative (Negative); Leukocyte Esterase Urine Trace (Negative); Nitrite Urine Negative (Negative); PH 6.5 (5.0-9.0); Specific Gravity - Urine 1.015 (1.005-1.025); UMIC TRIGGER UACC YES; Urine Blood Trace (Negative); Urine Ketones Negative (Negative); Urine Protein 30 (1+) mg/dL (Neg-Trace)
[2023-06-06 10:32] LABS: Bacteria Urine None Seen (None Seen); Hyaline Casts Urine 0-2 /LPF (0-2); WBC Urine 0-5 /HPF (0-5)
--- NOTE | 2023-06-06 10:50 | MHC.CM.PN ---
pt lives alone is independent had no porevious servies will arrange own ride home
[2023-06-06] MEDS: Enoxaparin Sodium 40 MG/0.4 ML SYRINGE SUBCUT (12:06)
--- NOTE | 2023-06-06 12:41 | P.PNIM_ITS ---
Subjective Subjective Date of Service: 06/06/23 Interval History: Continues to improve slowly. Still with productive cough Review of Systems Admits chest pain with cough Denies shortness of breath Denies nausea vomiting diarrhea Denies fever chills Physical Exam 2 Vital Signs: Vital Signs: Last Vital Signs Temp 97.6 F 06/06/23 08:00 Pulse 79 06/06/23 08:00 Resp 20 06/06/23 08:00 BP 141/72 H 06/06/23 08:00 Pulse Ox 94 06/06/23 08:00 O2 Del Method Room Air 06/06/23 08:00 O2 Flow Rate 2 06/06/23 03:35 BMI result Body Mass Index 31.5 Const: Other: Awake alert ambulatory in room. No acute distress Resp: Other: Diminished throughout with scattered expiratory wheezes at bases Cardio: Other: No S4; positive S1-S2; no S3 murmurs rubs or gallops GI: Other: Soft nontender nondistended normoactive bowel sounds Extrem: Other: No edema bilaterally Objective Data Active Medications Acetaminophen (Acetaminophen 325 Mg Tablet) 650 mg PO Q6H PRN PRN Reason: Pain, Mild (Pain Scale 1-3) Last Admin: 06/05/23 21:03 Dose: 650 mg Documented By: LOU Aspirin (Aspirin Enteric Coated 81 Mg Tablet.) 81 mg PO DAILY [facility] Last Admin: 06/06/23 08:46 Dose: 81 mg Documented By: BATSHEVA Atorvastatin Calcium (Atorvastatin Calcium 20 Mg Tablet) 20 mg PO DAILY [facility] Last Admin: 06/06/23 08:45 Dose: 20 mg Documented By: BATSHEVA Benzonatate (Benzonatate 100 Mg Capsule) 100 mg PO TID PRN PRN Reason: Cough Last Admin: 06/06/23 07:14 Dose: 100 mg Documented By: BATSHEVA Bupropion HCl (Bupropion Hcl Xl 150 Mg Tab.Er.24h) 150 mg PO DAILY [facility] Last Admin: 06/06/23 08:46 Dose: 150 mg Documented By: BATSHEVA Cyanocobalamin (Cyanocobalamin (Vitamin B-12) 100 Mcg Tablet) 100 mcg PO DAILY [facility] Last Admin: 06/06/23 08:45 Dose: 100 mcg Documented By: BATSHEVA Enoxaparin Sodium (Enoxaparin Sodium 40 Mg/0.4 Ml Syringe) 40 mg SUBCUT Q24H [facility] Last Admin: 06/06/23 12:06 Dose: 40 mg Documented By: BATSHEVA Lisinopril (Lisinopril 5 Mg Tablet) 5 mg PO DAILY [facility]; Protocol Last Admin: 06/06/23 08:45 Dose: 5 mg Documented By: BATSHEVA Melatonin (Melatonin 3 Mg Tablet) 6 mg PO BEDTIME PRN PRN Reason: Insomnia Ondansetron HCl (Ondansetron Hcl 4 Mg/2 Ml Vial) 4 mg IVPUSH Q8H PRN PRN Reason: Nausea and Vomiting Sodium Chloride (0.9 % Sodium Chloride Flush 3 Ml Syringe) 3 ml IVFLUSH QSHIFT [facility] Last Admin: 06/06/23 08:44 Dose: 3 ml Documented By: BATSHEVA Vitamin D (Cholecalciferol (Vitamin D3) 25 Mcg Tablet) 25 mcg PO DAILY [facility] Last Admin: 06/06/23 08:45 Dose: 25 mcg Documented By: BATSHEVA Labs 06/06/23 05:59 06/06/23 05:59 Labs: Laboratory Results - last 24 hr 06/06/23 06/06/23 05:59 10:11 MCV 93.4 MCH 32.0 MCHC 34.2 RDW 11.7 Plt Count 280 MPV 11.4 Immature Gran % (Auto) 1.9 H Neut % (Auto) 77.7 H Lymph % (Auto) 11.8 L [place] % (Auto) 8.1 Eos % (Auto) 0.0 Baso % (Auto) 0.5 Lymph # (Auto) 1.2 [place] # (Auto) 0.9 Eos # (Auto) 0.0 Baso # (Auto) 0.1 Abs Immat Gran (auto) 0.20 H Absolute Neuts (auto) 8.2 Absolute Nucleated RBC 0.000 Nucleated RBC % (auto) 0.0 Anion Gap 11 L Estim Creat Clear Calc 80.9 Estimated GFR > 60 Random Glucose 201 H Calcium 9.6 Urine Color Yellow Urine Appearance Clear Urine pH 6.5 Ur Specific [place] 1.015 Urine Protein 30 (1+) H Urine Glucose (UA) Negative Urine Ketones Negative Urine Blood Trace H Urine Nitrite Negative Ur Leukocyte Esterase Trace H Urine RBC 6-10 H Urine WBC 0-5 Ur Squamous Epith Cells 3-5 Urine Bacteria None Seen Hyaline Casts 0-2 Assessment and Plan (1) Acute hypoxic respiratory failure: Status: Acute (2) Community acquired pneumonia: Status: Acute Plan Pt is a 73-year-old female with a PMH significant for?HTN, HLD, lifelong smoker with 30+ pack year hx recently quit two weeks ago, and with no formal COPD diagnosis not on home inhalers or O2 who presents to the ED with?worsening cough, difficulty breathing, and shortness of breath x1 week. Pt will be admitted to the hospital for treatment and further evaluation of acute hypoxic respiratory failure in the setting of community-acquired pneumonia. 1.Acute hypoxic respiratory/Community-acquired pneumonia -ceftriaxone/azithromycin (2) -DuoNebs q.4 hours p.r.n. while awake -methylprednisolone q.6 hours -no O2 requirement at this time 2.HTN -acceptable control on current therapies -adjust as indicated Full Code Lovenox Patient will require ongoing hospitalization for treatment of acute hypoxic respiratory failure in the backdrop of community acquired pneumonia with antibiotics and IV steroids Quality Stroke Does the patient have a stroke diagnosis?: No VTE Prior VTE?: No VTE Risk Level:: Medical - moderate - high VTE Device Contraindication: Treatment Not Indicated VTE Drug Contraindication: N/A - Med Ordered
[2023-06-06] MEDS: guaiFENesin 200 MG/10 ML 10 ML LIQUID PO ×2 (13:18→21:09)
[2023-06-06 15:07] VITALS: BP 124/60; PULSE 84; RESP 20; TEMP 36.1; O2SAT 97
[2023-06-06 19:51] VITALS: BP 134/71; PULSE 86; RESP 17; TEMP 36.6; O2SAT 94
[2023-06-06] MEDS: Acetaminophen 325 MG TABLET 650 MG PO (21:11)
[2023-06-06 23:34] VITALS: PULSE 81; RESP 18; O2SAT 96
[2023-06-06] MEDS: Albuterol/Iprat 2.5/0.5MG 3 ML AMPUL.NEB INHALE (23:34)
[2023-06-07 03:19] VITALS: BP 135/76; PULSE 83; RESP 17; TEMP 37; O2SAT 93
[2023-06-07] MEDS: Benzonatate 100 MG CAPSULE PO ×2 (03:28→09:02)
[2023-06-07 08:00] VITALS: BP 140/59; PULSE 86; RESP 18; TEMP 36.3; O2SAT 93
[2023-06-07] MEDS: cefTRIAXone sodium 1 GM in 0.9 % Sodium Chloride 50 ML IV (09:01)
[2023-06-07] MEDS: guaiFENesin 200 MG/10 ML 10 ML LIQUID PO ×3 (09:01→21:31)
[2023-06-07] MEDS: methylPREDNISolone Sod Succ 125 MG/2 ML VIAL IVPUSH (09:01)
[2023-06-07] MEDS: lisinopriL 5 MG TABLET PO (09:02)
[2023-06-07] MEDS: Atorvastatin Calcium 20 MG TABLET PO (09:02)
[2023-06-07] MEDS: Cyanocobalamin (Vitamin B-12) 100 MCG TABLET PO (09:02)
[2023-06-07] MEDS: Cholecalciferol (Vitamin D3) 25 MCG TABLET PO (09:02)
[2023-06-07] MEDS: HYDROcodone Bit/Acetam 5/325 TABLET 1 TAB PO ×4 (09:02→23:35)
[2023-06-07] MEDS: Aspirin Enteric Coated 81 MG TABLET.DR PO (09:02)
[2023-06-07] MEDS: buPROPion HCl XL 150 MG TAB.ER.24H PO (09:03)
[2023-06-07] MEDS: 0.9 % Sodium Chloride Flush 3 ML SYRINGE IVFLUSH ×3 (09:03→23:36)
[2023-06-07] MEDS: Azithromycin 500 MG in 0.9 % Sodium Chloride 250 ML 125 MG IV (09:41)
[2023-06-07] MEDS: Enoxaparin Sodium 40 MG/0.4 ML SYRINGE SUBCUT (11:58)
--- NOTE | 2023-06-07 12:16 | P.PNIM_ITS ---
Subjective Subjective Date of Service: 06/07/23 Interval History: Slowly improving. No acute issues Review of Systems Admits chest pain with cough Denies shortness of breath Denies nausea vomiting diarrhea Denies fever chills Physical Exam 2 Vital Signs: Vital Signs: Last Vital Signs Temp 97.3 F 06/07/23 08:00 Pulse 86 06/07/23 08:00 Resp 18 06/07/23 08:00 BP 140/59 H 06/07/23 08:00 Pulse Ox 93 06/07/23 08:00 O2 Del Method Nasal Cannula 06/07/23 08:00 O2 Flow Rate 2.0 06/07/23 08:00 BMI result Body Mass Index 31.5 Const: Other: Awake alert ambulatory in room. No acute distress Resp: Other: Diminished throughout with scattered expiratory wheezes at bases Cardio: Other: No S4; positive S1-S2; no S3 murmurs rubs or gallops GI: Other: Soft nontender nondistended normoactive bowel sounds Extrem: Other: No edema bilaterally Objective Data Active Medications Acetaminophen (Acetaminophen 325 Mg Tablet) 650 mg PO Q6H PRN PRN Reason: Pain, Mild (Pain Scale 1-3) Last Admin: 06/06/23 21:11 Dose: 650 mg Documented By: GRIFFIN Hydrocodone Bitart/Acetaminophen (Hydrocodone Bit/Acetam 10/325 Tablet) 1 tab PO Q4H PRN PRN Reason: Cough Albuterol/Ipratropium (Albuterol/Iprat 2.5/0.5mg 3 Ml Ampul.Neb) 3 ml INHALE RQ4H WHILE AWAKE PRN PRN Reason: Shortness of Breath/Wheezing Last Admin: 06/06/23 23:34 Dose: 3 ml Documented By: SHARLENE Aspirin (Aspirin Enteric Coated 81 Mg Tablet.) 81 mg PO DAILY [facility] Last Admin: 06/07/23 09:02 Dose: 81 mg Documented By: FABIO Atorvastatin Calcium (Atorvastatin Calcium 20 Mg Tablet) 20 mg PO DAILY [facility] Last Admin: 06/07/23 09:02 Dose: 20 mg Documented By: FABIO Benzonatate (Benzonatate 100 Mg Capsule) 100 mg PO TID PRN PRN Reason: Cough Last Admin: 06/07/23 09:02 Dose: 100 mg Documented By: FABIO Bupropion HCl (Bupropion Hcl Xl 150 Mg Tab.Er.24h) 150 mg PO DAILY [facility] Last Admin: 06/07/23 09:03 Dose: 150 mg Documented By: FABIO Cyanocobalamin (Cyanocobalamin (Vitamin B-12) 100 Mcg Tablet) 100 mcg PO DAILY [facility] Last Admin: 06/07/23 09:02 Dose: 100 mcg Documented By: FABIO Enoxaparin Sodium (Enoxaparin Sodium 40 Mg/0.4 Ml Syringe) 40 mg SUBCUT Q24H [facility] Last Admin: 06/07/23 11:58 Dose: 40 mg Documented By: FABIO Guaifenesin (Guaifenesin 200 Mg/10 Ml 10 Ml Liquid) 10 ml PO Q4H PRN PRN Reason: Cough Last Admin: 06/07/23 09:01 Dose: 10 ml Documented By: FABIO Ceftriaxone Sodium 1 gm/ (Sodium Chloride) 50 mls @ 100 mls/hr IV Q24H [facility] Last Infusion: 06/07/23 09:31 Dose: Infused Documented By: FABIO Azithromycin 500 mg/ Sodium (Chloride) 250 mls @ 125 mls/hr IV Q24H [facility] Last Infusion: 06/07/23 11:41 Dose: Infused Documented By: FABIO Lisinopril (Lisinopril 5 Mg Tablet) 5 mg PO DAILY [facility]; Protocol Last Admin: 06/07/23 09:02 Dose: 5 mg Documented By: FABIO Melatonin (Melatonin 3 Mg Tablet) 6 mg PO BEDTIME PRN PRN Reason: Insomnia Ondansetron HCl (Ondansetron Hcl 4 Mg/2 Ml Vial) 4 mg IVPUSH Q8H PRN PRN Reason: Nausea and Vomiting Sodium Chloride (0.9 % Sodium Chloride Flush 3 Ml Syringe) 3 ml IVFLUSH QSHIFT [facility] Last Admin: 06/07/23 09:03 Dose: 3 ml Documented By: FABIO Vitamin D (Cholecalciferol (Vitamin D3) 25 Mcg Tablet) 25 mcg PO DAILY [facility] Last Admin: 06/07/23 09:02 Dose: 25 mcg Documented By: FABIO Labs 06/06/23 05:59 06/06/23 05:59 Microbiology Microbiology Results: Microbiology 06/06/23 10:11 Gram Stain - Final Sputum - Expectorated Sputum Culture - Preliminary Culture in progress. 06/05/23 12:08 Blood Culture - Preliminary Blood - Venous No growth after 24 hours. 06/05/23 11:57 Blood Culture - Preliminary Blood - Venous No growth after 24 hours. Assessment and Plan (1) Community acquired pneumonia: Status: Acute Plan Pt is a 73-year-old female with a PMH significant for?HTN, HLD, lifelong smoker with 30+ pack year hx recently quit two weeks ago, and with no formal COPD diagnosis not on home inhalers or O2 who presents to the ED with?worsening cough, difficulty breathing, and shortness of breath x1 week. Pt will be admitted to the hospital for treatment and further evaluation of acute hypoxic respiratory failure in the setting of community-acquired pneumonia. 1.Acute hypoxic respiratory/Community-acquired pneumonia -ceftriaxone/azithromycin (3) -DuoNebs q.4 hours p.r.n. while awake -methylprednisolone q.6 hours -no O2 requirement at this time 2.HTN -acceptable control on current therapies -adjust as indicated Full Code Lovenox Patient will require ongoing hospitalization for treatment of acute hypoxic respiratory failure in the backdrop of community acquired pneumonia with antibiotics and IV steroids Quality Stroke Does the patient have a stroke diagnosis?: No VTE Prior VTE?: No VTE Risk Level:: Medical - moderate - high VTE Device Contraindication: Treatment Not Indicated VTE Drug Contraindication: N/A - Med Ordered
[2023-06-07] MEDS: methylPREDNISolone Sod Succ 125 MG/2 ML VIAL 60 MG IVPUSH ×3 (12:35→23:36)
[2023-06-07 15:34] VITALS: BP 134/69; PULSE 84; RESP 16; TEMP 36.5; O2SAT 92
[2023-06-07 19:32] VITALS: BP 145/65; PULSE 75; RESP 18; TEMP 36.7; O2SAT 93
[2023-06-08 03:49] VITALS: BP 153/94; PULSE 82; RESP 19; TEMP 36.1; O2SAT 93
[2023-06-08] MEDS: methylPREDNISolone Sod Succ 125 MG/2 ML VIAL 60 MG IVPUSH ×3 (05:51→17:27)
[2023-06-08 07:21] VITALS: BP 160/74; PULSE 83; RESP 18; TEMP 36.5; O2SAT 92
[2023-06-08] MEDS: Atorvastatin Calcium 20 MG TABLET PO (07:52)
[2023-06-08] MEDS: cefTRIAXone sodium 1 GM in 0.9 % Sodium Chloride 50 ML IV (07:52)
[2023-06-08] MEDS: guaiFENesin 200 MG/10 ML 10 ML LIQUID PO ×4 (07:52→21:30)
[2023-06-08] MEDS: Cyanocobalamin (Vitamin B-12) 100 MCG TABLET PO (07:52)
[2023-06-08] MEDS: Benzonatate 100 MG CAPSULE PO ×3 (07:53→22:35)
[2023-06-08] MEDS: Aspirin Enteric Coated 81 MG TABLET.DR PO (07:53)
[2023-06-08] MEDS: Cholecalciferol (Vitamin D3) 25 MCG TABLET PO (07:53)
[2023-06-08] MEDS: lisinopriL 5 MG TABLET PO (07:53)
[2023-06-08] MEDS: buPROPion HCl XL 150 MG TAB.ER.24H PO (07:53)
[2023-06-08] MEDS: HYDROcodone Bit/Acetam 5/325 TABLET 1 TAB PO ×3 (07:53→20:28)
[2023-06-08] MEDS: 0.9 % Sodium Chloride Flush 3 ML SYRINGE IVFLUSH ×2 (07:56→17:28)
[2023-06-08] MEDS: Azithromycin 500 MG in 0.9 % Sodium Chloride 250 ML 125 MG IV (08:30)
[2023-06-08] MEDS: Enoxaparin Sodium 40 MG/0.4 ML SYRINGE SUBCUT (11:44)
--- NOTE | 2023-06-08 12:07 | P.PNIM_ITS ---
Subjective Subjective Date of Service: 06/08/23 Interval History: Improved with steroids. Breathing easier but still requiring O2 Review of Systems Admits chest pain with cough Denies shortness of breath Denies nausea vomiting diarrhea Denies fever chills Physical Exam 2 Vital Signs: Vital Signs: Last Vital Signs Temp 97.7 F 06/08/23 07:21 Pulse 83 06/08/23 07:21 Resp 18 06/08/23 07:21 BP 160/74 H 06/08/23 07:21 Pulse Ox 92 06/08/23 07:21 O2 Del Method Nasal Cannula 06/08/23 07:21 O2 Flow Rate 2.0 06/08/23 07:21 BMI result Body Mass Index 31.5 Const: Other: Awake alert ambulatory in room. No acute distress Resp: Other: Diminished throughout with scattered expiratory wheezes at bases Cardio: Other: No S4; positive S1-S2; no S3 murmurs rubs or gallops GI: Other: Soft nontender nondistended normoactive bowel sounds Extrem: Other: No edema bilaterally Objective Data Active Medications Acetaminophen (Acetaminophen 325 Mg Tablet) 650 mg PO Q6H PRN PRN Reason: Pain, Mild (Pain Scale 1-3) Last Admin: 06/06/23 21:11 Dose: 650 mg Documented By: GRIFFIN Hydrocodone Bitart/Acetaminophen (Hydrocodone Bit/Acetam 5/325 Tablet) 1 tab PO Q6H PRN PRN Reason: Cough Last Admin: 06/08/23 07:53 Dose: 1 tab Documented By: FABIO Albuterol/Ipratropium (Albuterol/Iprat 2.5/0.5mg 3 Ml Ampul.Neb) 3 ml INHALE RQ4H WHILE AWAKE PRN PRN Reason: Shortness of Breath/Wheezing Last Admin: 06/06/23 23:34 Dose: 3 ml Documented By: SHARLENE Aspirin (Aspirin Enteric Coated 81 Mg Tablet.) 81 mg PO DAILY [facility] Last Admin: 06/08/23 07:53 Dose: 81 mg Documented By: FABIO Atorvastatin Calcium (Atorvastatin Calcium 20 Mg Tablet) 20 mg PO DAILY [facility] Last Admin: 06/08/23 07:52 Dose: 20 mg Documented By: FABIO Benzonatate (Benzonatate 100 Mg Capsule) 100 mg PO TID PRN PRN Reason: Cough Last Admin: 06/08/23 07:53 Dose: 100 mg Documented By: FABIO Bupropion HCl (Bupropion Hcl Xl 150 Mg Tab.Er.24h) 150 mg PO DAILY [facility] Last Admin: 06/08/23 07:53 Dose: 150 mg Documented By: FABIO Cyanocobalamin (Cyanocobalamin (Vitamin B-12) 100 Mcg Tablet) 100 mcg PO DAILY [facility] Last Admin: 06/08/23 07:52 Dose: 100 mcg Documented By: FABIO Enoxaparin Sodium (Enoxaparin Sodium 40 Mg/0.4 Ml Syringe) 40 mg SUBCUT Q24H [facility] Last Admin: 06/08/23 11:44 Dose: 40 mg Documented By: FABIO Guaifenesin (Guaifenesin 200 Mg/10 Ml 10 Ml Liquid) 10 ml PO Q4H PRN PRN Reason: Cough Last Admin: 06/08/23 11:43 Dose: 10 ml Documented By: FABIO Ceftriaxone Sodium 1 gm/ (Sodium Chloride) 50 mls @ 100 mls/hr IV Q24H [facility] Last Infusion: 06/08/23 08:22 Dose: Infused Documented By: FABIO Azithromycin 500 mg/ Sodium (Chloride) 250 mls @ 125 mls/hr IV Q24H [facility] Last Infusion: 06/08/23 10:30 Dose: Infused Documented By: FABIO Lisinopril (Lisinopril 5 Mg Tablet) 5 mg PO DAILY [facility]; Protocol Last Admin: 06/08/23 07:53 Dose: 5 mg Documented By: FABIO Melatonin (Melatonin 3 Mg Tablet) 6 mg PO BEDTIME PRN PRN Reason: Insomnia Methylprednisolone Sodium Succinate (Methylprednisolone Sod Succ 125 Mg/2 Ml Vial) 60 mg IVPUSH Q6H [facility] Last Admin: 06/08/23 11:44 Dose: 60 mg Documented By: FABIO Ondansetron HCl (Ondansetron Hcl 4 Mg/2 Ml Vial) 4 mg IVPUSH Q8H PRN PRN Reason: Nausea and Vomiting Sodium Chloride (0.9 % Sodium Chloride Flush 3 Ml Syringe) 3 ml IVFLUSH QSHIFT [facility] Last Admin: 06/08/23 07:56 Dose: 3 ml Documented By: FABIO Vitamin D (Cholecalciferol (Vitamin D3) 25 Mcg Tablet) 25 mcg PO DAILY [facility] Last Admin: 06/08/23 07:53 Dose: 25 mcg Documented By: FABIO Labs 06/06/23 05:59 06/06/23 05:59 Microbiology Microbiology Results: Microbiology 06/06/23 10:11 Gram Stain - Final Sputum - Expectorated Sputum Culture - Final 06/05/23 12:08 Blood Culture - Preliminary Blood - Venous No growth after 48 hours. 06/05/23 11:57 Blood Culture - Preliminary Blood - Venous No growth after 48 hours. Assessment and Plan (1) Acute hypoxic respiratory failure: Status: Acute (2) Community acquired pneumonia: Status: Acute Plan Pt is a 73-year-old female with a PMH significant for?HTN, HLD, lifelong smoker with 30+ pack year hx recently quit two weeks ago, and with no formal COPD diagnosis not on home inhalers or O2 who presents to the ED with?worsening cough, difficulty breathing, and shortness of breath x1 week. Pt will be admitted to the hospital for treatment and further evaluation of acute hypoxic respiratory failure in the setting of community-acquired pneumonia. 1.Acute hypoxic respiratory/Community-acquired pneumonia -ceftriaxone/azithromycin (4) -DuoNebs q.4 hours p.r.n. while awake -methylprednisolone q.6 hours -wean oxygen to maintain sats greater than equal to 90% 2.HTN -acceptable control on current therapies -adjust as indicated Full Code Lovenox Patient will require ongoing hospitalization for treatment of acute hypoxic respiratory failure in the backdrop of community acquired pneumonia with antibiotics and IV steroids Quality Stroke Does the patient have a stroke diagnosis?: No VTE Prior VTE?: No VTE Risk Level:: Medical - moderate - high VTE Device Contraindication: Treatment Not Indicated VTE Drug Contraindication: N/A - Med Ordered
[2023-06-08 16:00] VITALS: BP 154/74; PULSE 90; RESP 18; TEMP 36.8; O2SAT 93
[2023-06-08 17:45] VITALS: PULSE 80; RESP 16; O2SAT 93
--- NOTE | 2023-06-08 18:29 | PC.NURSE ---
Patient weened off O2 this evening; satting 92% on room air
[2023-06-08 19:35] VITALS: BP 161/79; PULSE 88; RESP 17; TEMP 36.2; O2SAT 94
[2023-06-09 03:22] VITALS: BP 147/97; PULSE 72; RESP 17; TEMP 36; O2SAT 94
[2023-06-09] MEDS: methylPREDNISolone Sod Succ 125 MG/2 ML VIAL 60 MG IVPUSH ×3 (06:14→14:02)
[2023-06-09] MEDS: guaiFENesin 200 MG/10 ML 10 ML LIQUID PO (06:18)
[2023-06-09] MEDS: Albuterol/Iprat 2.5/0.5MG 3 ML AMPUL.NEB INHALE (06:30)
[2023-06-09 06:33] VITALS: PULSE 80; RESP 14; O2SAT 94
[2023-06-09 07:37] VITALS: BP 149/78; PULSE 93; RESP 16; TEMP 36.9; O2SAT 92
[2023-06-09] MEDS: Cyanocobalamin (Vitamin B-12) 100 MCG TABLET PO (07:41)
[2023-06-09] MEDS: cefTRIAXone sodium 1 GM in 0.9 % Sodium Chloride 50 ML IV (07:41)
[2023-06-09] MEDS: buPROPion HCl XL 150 MG TAB.ER.24H PO (07:41)
[2023-06-09] MEDS: Atorvastatin Calcium 20 MG TABLET PO (07:41)
[2023-06-09] MEDS: lisinopriL 5 MG TABLET PO (07:41)
[2023-06-09] MEDS: Cholecalciferol (Vitamin D3) 25 MCG TABLET PO (07:41)
[2023-06-09] MEDS: Aspirin Enteric Coated 81 MG TABLET.DR PO (07:41)
[2023-06-09] MEDS: 0.9 % Sodium Chloride Flush 3 ML SYRINGE IVFLUSH ×2 (07:42)
[2023-06-09] MEDS: Azithromycin 500 MG in 0.9 % Sodium Chloride 250 ML 125 MG IV (08:43)
--- NOTE | 2023-06-09 11:47 | P.DS_ITS ---
DS: Providers Provider Date of Service: 06/09/23 Date of admission: 06/05/23 12:16 Date of discharge: 06/09/23 Primary care physician: Adrian Richmond MD DS: Diagnosis Discharge Diagnosis (1) Acute hypoxic respiratory failure: Status: Acute (2) Community acquired pneumonia: Status: Acute DS: Summary Hospital Course Hospital Course: 73-year-old female with a PMH significant for?HTN, HLD, lifelong smoker with 30+ pack year hx recently quit two weeks ago, and with no formal COPD diagnosis not on home inhalers or O2 who presents to the ED with?worsening cough, difficulty breathing, and shortness of breath x1 week. Patient states symptoms began 1 week ago when she developed a ?cold? that then turned ?bronchial?. However, patient's condition continued to decline rather than improve: Experienced wo rsening shortness of breath, wet sounding but nonproductive cough, difficulty breathing, and DELUNA. Patient also experienced increased lower leg edema starting on Wednesday of this week. Patient has been feeling fatigued and not eating or drinking much, and has been spending most of her time resting in bed and not ambulating. Symptoms were worse this morning which prompted her visit to the ED for evaluation. Complains of some chest tightness associated with breathing and cough, but denies chest pain or pressure or palpitations. No fever or chills. Denies nausea, vomiting, abdominal pain. Denies orthopnea. In the ED pt was afebrile, but tachycardic up to 95, hypertensive up to 154/79, and satting as low as 88% on RA. Labs were significant for D-dimer slightly elevated at 392, sodium 131, chloride 92, AST 70, and ALT 50. No leukocytosis. Renal function baseline. Lactic acid WNL at 1.0. BNP WNL at 63. Tested negative for COVID, influenza a and B. CXR showed findings that are suggestive of an atypical infectious/inflammatory process with early infiltrates in the lower lungs as well as a small left-sided pleural effusion. CTA pending. Pt was treated with DuoNebs, Solu-Medrol ceftriaxone, and azithromycin. Pt will be admitted to the hospital for treatment and further evaluation of acute hypoxic respiratory failure in the setting of community-acquired pneumonia. [facility] Patient was admitted to the general medical floor and started on ceftriaxone/azithromycin and pulse dose steroids. Over the course of the next 72 hours she improved to the point she could be weaned off O2. She was observed overnight continue to maintain her saturations. At this point in time she is medically acceptable to for discharge to complete a course of doxycycline and prednisone taper. She will follow up with the PCP next available appointment Time Attestation Discharge coordination time: Greater than 30 minutes Quality: Safe Use of Opioids Does Pt have an Active Cancer Diagnosis on the Problem List?: No Quality: Stroke Does the patient have a stroke diagnosis?: No Physical Exam Vital Signs: Vital Signs: Last Vital Signs Temp 98.5 F 06/09/23 07:37 Pulse 93 06/09/23 07:37 Resp 16 06/09/23 07:37 BP 149/78 H 06/09/23 07:37 Pulse Ox 92 06/09/23 07:37 O2 Del Method Room Air 06/09/23 07:37 O2 Flow Rate 2 06/08/23 16:00 BMI result Body Mass Index 31.5 Const: Other: Awake alert ambulatory in room. No acute distress Resp: Other: Diminished throughout with scattered expiratory wheezes at bases Cardio: Other: No S4; positive S1-S2; no S3 murmurs rubs or gallops GI: Other: Soft nontender nondistended normoactive bowel sounds Extrem: Other: No edema bilaterally DS: Data Data Completed and Pending Labs on day of discharge: Preliminary micro results at discharge 06/05/23 12:08 Blood Culture - Preliminary Blood - Venous No growth after 48 hours. 06/05/23 11:57 Blood Culture - Preliminary Blood - Venous No growth after 48 hours. Discharge Plan Discharge Anticipated Discharge Date/Time: 06/09/23 11:42 Patient Disposition: Home Health Service Discharge Diagnosis: Community-acquired pneumonia Referrals: Adrian Richmond MD [Primary Care Provider] - 1 Week Discharge Medications: New hydrocodone-acetaminophen 5-325 mg Tablet 1 tab PO Q6H PRN (Reason: Cough) Qty: 30 0RF Rx Instructions: Partial Fill upon patient request. doxycycline hyclate 100 mg tablet 100 mg PO BID Qty: 14 0RF prednisone 10 mg tablet See Rx Instructions .Route .COMPLEX Qty: 45 0RF Rx Instructions: 10 mg orally; 5 tabs p.o. daily x3 days; 4 tabs p.o. daily x3 days; 3 tabs daily x3 days; 2 tabs daily x3 days; 1 tab daily x3 days Continued bupropion HCl 150 mg tablet sustained-release 12 hr 1 tab PO DAILY cyanocobalamin (vitamin B-12) [Vitamin B-12] 100 mcg Tablet 100 mcg PO DAILY aspirin 81 mg Tablet,Delayed Release (Dr/Ec) 81 mg PO DAILY simvastatin 40 mg tablet 1 tab PO DAILY lisinopril 5 mg tablet 1 tab PO DAILY cholecalciferol (vitamin D3) 25 mcg (1,000 unit) Capsule 25 mcg PO DAILY Discharge Orders: Discharge Order (Routine); Ordered 06/09/23 Ordered By: Deyvi Bolivar Diet: Advance to usual diet Activity on Discharge: As tolerated Stand Alone Forms: Patient Portal Discharge page Care Plan Goals: Resume all medicines as taken prior to hospital Health Concerns: Complete a course of doxycycline and prednisone taper as outlined. Utilize Vicodin and Robitussin cough syrup for cough Plan of Treatment: Follow-up PCP next available Assessment: See discharge summary
--- NOTE | 2023-06-09 13:03 | MHC.CM.PN ---
IMM 06/09/23 Patient is discharged to home self care. She has arranged for a family member to provide transportion.
[2023-06-09] MEDS: Enoxaparin Sodium 40 MG/0.4 ML SYRINGE SUBCUT (14:02)
[2023-06-09 15:10] VITALS: BP 158/73; PULSE 68; RESP 19; TEMP 36.1; O2SAT 95
== END 2023-06-09 17:04 | disposition home health service (06) | DRG 193 ==
LOC: HO.ED 12:17 → HO.EDOVER 12:19 → HO.S3 12:51
PROVIDERS: Physician Assistant; Physician Assistant Medical; Admitting Provider Student in an Organized Health Care Education/Training Program; Emergency Provider Emergency Medicine; PCP Internal Medicine; Visit Provider Hospitalist
DX: J18.9 Pneumonia, unspecified organism (principal); J96.01 Acute respiratory failure with hypoxia; F17.210 Nicotine dependence, cigarettes, uncomplicated; Z71.6 Tobacco abuse counseling; I10 Essential (primary) hypertension; E78.5 Hyperlipidemia, unspecified; Z20.822 Contact with and (suspected) exposure to COVID-19; Z79.82 Long term (current) use of aspirin; Z79.899 Other long term (current) drug therapy
CPT/HCPCS: 36415; 71046; 71275; 80048; 80076; 81001; 83605; 83735; 83880; 84484; 85025; 85379; 87040; 87070; 87205; 87502; 87635; 93005; 94640; 99285; J0456; J0696; J1650; J2930

== ENCOUNTER → 2023-06-05 10:26 | Outpatient (BNV) | payer MEDICARE, SELFPAY | PROVIDERS: Admitting Provider Student in an Organized Health Care Education/Training Program; Emergency Provider Emergency Medicine; PCP Internal Medicine; Visit Provider Internal Medicine Cardiovascular Disease | DX: R06.02 Shortness of breath (principal) | CPT/HCPCS: 93010 ==

== ENCOUNTER → 2023-06-05 12:16 | Outpatient (BNV) | payer MEDICARE, SELFPAY | PROVIDERS: Admitting Provider Student in an Organized Health Care Education/Training Program; Emergency Provider Emergency Medicine; PCP Internal Medicine; Visit Provider Student in an Organized Health Care Education/Training Program | DX: J18.9 Pneumonia, unspecified organism (principal) | CPT/HCPCS: 99223; 99231; 99232; 99233; 99239 ==

== ENCOUNTER 2023-06-30 11:40 | Outpatient (REF) | payer MEDICARE, SELFPAY ==
--- NOTE | ~2023-06-30 | XR_ITS ---
EXAMINATION: XR CHEST CLINICAL INFORMATION: Status post pneumonia COMPARISON: 06/05/2023 TECHNIQUE: 2 views of the chest were obtained. FINDINGS: Exam is felt to be similar to previous. Mild basilar opacities with some mildly increasing change at the left base laterally may be ongoing atelectasis or infiltrate. Findings also suggest some increasing change in the lingula proper. Right lung is felt to be comparable. Once again tortuous versus ectatic arch and descending aorta. The cardiac silhouette is comparable in the hilar regions are felt to be comparable. XR/XR chest 2V IMPRESSION: Exam is similar to previous. Some mildly increasing change at the left base may be mildly increasing atelectasis or infiltrate superimposed on chronic markings. Attention to follow-up
== END 2023-06-30 11:41 | disposition home or self-care (01) ==
LOC: HO.HMGCX 11:40
PROVIDERS: PCP Internal Medicine; Visit Provider Internal Medicine
DX: J18.9 Pneumonia, unspecified organism (principal)
CPT/HCPCS: 71046

== ENCOUNTER 2023-12-13 10:53 | Outpatient (REF) | payer MEDICARE, SELFPAY ==
[2023-12-13 13:09] LABS: Appearance Urine Cloudy; Color Urine Dark Yellow; Glucose Urine UA Negative (Negative); Leukocyte Esterase Urine Large (3+) (Negative); Nitrite Urine Positive (Negative); PH 5.5 (5.0-9.0); Specific Gravity - Urine <= 1.005 (1.005-1.025); UMIC TRIGGER UACC YES; Urine Blood Large (3+) (Negative); Urine Ketones Negative (Negative); Urine Protein Negative (Neg-Trace)
[2023-12-13 13:18] LABS: Bacteria Urine Trace (None Seen); Hyaline Casts Urine 0-2 /LPF (0-2); Squamous Epithelial Cell Urine 0-2 /HPF (0-2); UACC Culture Trigger YES; WBC Clumps Urine Present; WBC Urine >50 /HPF (0-5)
== END 2023-12-13 10:54 | disposition home or self-care (01) ==
LOC: HO.HMGCLDS 10:53
PROVIDERS: PCP Internal Medicine; Visit Provider Internal Medicine
DX: R30.0 Dysuria (principal)
CPT/HCPCS: 81001; 81003; 87086

== ENCOUNTER 2023-12-31 11:49 | Outpatient (AMB) | payer MEDICARE, SELFPAY ==
--- NOTE | 2023-12-31 11:51 | MHC.OFFWIV ---
Intake Vital Signs 12/31/23 11:54 Height 5 ft 5 in Weight 186 lb BMI 30.9 BP 116/80 Blood Pressure Location Rt brachial Position Sitting Pulse 82 Pulse Source Pulse Oximeter Temp 97.8 F Temp Source Oral Pulse Oximetry (%) 94 Oxygen Delivery Method Room Air Intake Visit Reasons: EP- Lingering UTI from last week Intake Note: pt c/o UTI symptoms. Started week before last. Still has symptoms Patient Tobacco Use Status: Current everyday Tobacco user Allergies amoxicillin Allergy (Intermediate, Verified 12/31/23 12:02) Itching Do you need a note to return to daycare/school/sports/work: No HPI HPI Comments History of Present Illness Details PATIENT IS A 73-YEAR-OLD FEMALE COMPLAINING OF PRESSURE AND PAIN IN HER BLADDER. SHE STATES SHE HAD A URINARY TRACT INFECTION DIAGNOSED BY HER PHYSICIAN, DR. HOOKS ON December AND WAS TREATED WITH 7 DAYS OF MACROBID WHICH SHE TOOK TWICE A DAY. SHE STATES [place] THIS MEDICATION [place] AND THEN WAS SURPRISED TO FIND ANOTHER WEEK'S WORTH OF MACROBID WAS SENT TO HER PHARMACY SO SHE PICKED THAT UP AND STARTED TAKING IT 3 days ago because she started feeling these symptoms of urinary pressure and a little bit of pain. She states she usually feels this way when she gets a urinary tract infection. She denies any blood in her urine, history of kidney stones or fevers. [facility] Medical History Anxiety Low vitamin D level Degenerative joint disease Elevated cholesterol HTN (hypertension) Surgical History S/P hip replacement H/O colonoscopy Social History Household Members: Other Housing: House Do you presently have visiting nurse or other home services: No Patient Tobacco Use Status: Current everyday Tobacco user Tobacco use type: Cigarette Cigarettes Per Day: 10 service: No Review of Systems Const All systems reviewed & are unremarkable except as noted in HPI and below Physical Exam Vital Signs: Last Vital Signs Temp 97.8 F 12/31/23 11:54 Pulse 82 12/31/23 11:54 BP 116/80 12/31/23 11:54 Pulse Ox 94 12/31/23 11:54 Oxygen Delivery Method Room Air 12/31/23 11:54 BMI result Body Mass Index 30.9 Const General: cooperative, healthy appearing, comfortable, no acute distress and well developed Orientation/consciousness: patient oriented x3 Limitations: no limitations General: Yes bladder normal to palpation Bimanual exam- vagina & uterus: bladder normal to palpation Neuro General: patient oriented x3 Results AMB Urinalysis, Automated UA Leukoctes 0 Da/uL Last Edit by Jerman Rivers CMA on 12/31/23 12:06 UA Nitrite Negative Last Edit by Jerman Rivers CMA on 12/31/23 12:06 UA Urobilinogen 0.2 mg/dL Last Edit by Jerman Rivers CMA on 12/31/23 12:06 UA Protein 0 mg/dL Last Edit by Jerman Rivers CMA on 12/31/23 12:06 UA pH 7.0 Last Edit by Jerman Rivers CMA on 12/31/23 12:06 UA Blood 10 Juancarlos/uL Last Edit by Jerman Rivers CMA on 12/31/23 12:06 UA Specific [place] 1.005 Last Edit by Jerman Rivers CMA on 12/31/23 12:06 UA Ketone Negative Last Edit by Jerman Rivers CMA on 12/31/23 12:06 UA Bilirubin 0 mg/dL Last Edit by Jerman Rivers CMA on 12/31/23 12:06 UA Glucose 0 mg/dL Last Edit by Jerman Rivers CMA on 12/31/23 12:06 Results Reviewed Results Reviewed: Laboratory Last Values Urine pH (Auto) 7.0 12/31/23 12:05 Specific [place] (Auto) 1.005 12/31/23 12:05 Urine Protein (Auto) 0 mg/dL 12/31/23 12:05 Glucose (UA)(Auto) 0 mg/dL 12/31/23 12:05 Urine Ketones (Auto) Negative 12/31/23 12:05 Urine Blood (Auto) 10 Juancarlos/uL 12/31/23 12:05 Urine Nitrite (Auto) Negative 12/31/23 12:05 Urine Bilirubin (Auto) 0 mg/dL 12/31/23 12:05 Urine Urobilinogen (Auto) 0.2 mg/dL 12/31/23 12:05 Leukocyte Esterase (Auto) 0 Da/uL 12/31/23 12:05 Assessment & Plan Assessment & Plan (1) UTI (urinary tract infection): Code(s): N39.0 - Urinary tract infection, site not specified Qualifiers: Urinary tract infection type: acute cystitis Hematuria presence: with hematuria Qualified Code(s): N30.01 - Acute cystitis with hematuria Plan: We will treat patient based on her symptoms as UA was negative for infection but positive for blood. Recommended she stopped taking the nitrofurantoin and sent 3 days of ciprofloxacin to her pharmacy. Gave patient warnings on possible side effects of the ciprofloxacin, recommended she not do anything strenuous no jumping or strenuous exercise, she states she does not exercise or do anything like that on a daily basis. Plan see above Orders: Orders AMB Urinalysis Automated Today Z13.9 - Encounter for screening, unspecified Medications: New ciprofloxacin HCl 250 mg PO Q12H 6 tabs 0RF Coding Level of Care Code New Pt Level 3 (40401) Diagnoses Acute cystitis with hematuria N30.01 Urinary tract infection type: acute cystitis Hematuria presence: with hematuria
[2023-12-31 11:54] VITALS: BP 116/80; PULSE 82; TEMP 36.6; O2SAT 94; BMI 30.9
== END 2023-12-31 12:15 | disposition home or self-care (01) ==
PROVIDERS: PCP Internal Medicine; Visit Provider Physician Assistant
DX: Z13.9 Encounter for screening, unspecified (principal); N30.01 Acute cystitis with hematuria
CPT/HCPCS: 81003; 99203

== ENCOUNTER 2024-08-05 10:20 | Outpatient (REF) | payer MEDICARE, SELFPAY | END 2024-08-05 10:21 | disposition home or self-care (01) | LOC: HO.LAB 10:20 | PROVIDERS: Visit Provider Nurse Practitioner Family | DX: R31.9 Hematuria, unspecified (principal); Z80.52 Family history of malignant neoplasm of bladder; Z72.0 Tobacco use | CPT/HCPCS: 81003; 87086; 99212 ==

== ENCOUNTER 2024-08-05 10:20 | Outpatient (AMB) | payer MEDICARE, SELFPAY ==
[2024-08-05 10:25] VITALS: BP 130/88; PULSE 99; RESP 16; TEMP 36.8; O2SAT 97; BMI 30.9
--- NOTE | 2024-08-05 10:25 | MHC.OFFWIV ---
Intake Vital Signs 08/05/24 10:25 Height 5 ft 5 in Weight 186 lb BMI 30.9 BP 130/88 Blood Pressure Location Lt brachial Position Sitting Respiration 16 Pulse 99 Pulse Source Pulse Oximeter Temp 98.2 F Temp Source Oral Pulse Oximetry (%) 97 Oxygen Delivery Method Room Air Intake Visit Reasons: EP-UTI? Intake Note: Pt is here today c/o UTI: consent pressure abdominal Patient Tobacco Use Status: Current everyday Tobacco user Allergies amoxicillin Allergy (Intermediate, Verified 08/05/24 11:03) Itching Medication List - Last Reconciled 08/05/24 by Caron Tony, [employer]Y HE[employer] ROOM ATTENDANT- aspirin 81 mg PO DAILY bupropion HCl SR 1 tab PO DAILY ciprofloxacin HCl 250 mg PO Q12H lisinopril 1 tab PO DAILY simvastatin 1 tab PO DAILY HPI HPI Comments History of Present Illness Details PCP Dr Richmond - needs new PCP, wants to stay in [place] office w/ Dr Lara History - The patient is a 74-year-old female presenting with abdominal pressure and hematuria. - The abnormal sensation has been present for a month, described as a tingling feeling with pressure - Previous UTIs, having experienced two occurrences in the past six months. - Patient's history is significant for family history of bladder cancer - Mom - Urinalysis is notable for hematuria without infection markers (nitrites or bacteria). Symptoms such as dysuria, fever, chills, nausea, or vomiting were denied. - The patient is a current tobacco user, which is relevant due to her family history. Physical Exam General: Awake, alert. No apparent distress Eyes: Sclera and conjunctiva clear bilaterally Cardiovascular: Regular rate and rhythm, heart murmur noted No CVAT Reports pressure w/ suprapubic palpation Results - Urinalysis: Positive for blood, negative for nitrites and bacteria. Discussion Notes I reviewed the patient's symptoms of abdominal pressure and hematuria, considering her family history of bladder cancer and tobacco use. I explained that the current urinalysis shows hematuria without signs of infection, which warrants further evaluation. There was a discussion about obtaining a referral to urology given her family history and current symptoms, although the issue may need to be addressed by the new primary care physician due to procedural protocols. I advised that the urine sample would be cultured to rule out infectious causes, despite the low likelihood of bacterial growth. I discussed the necessity of a follow-up with Dr. Jane for comprehensive evaluation and management, and I reassured the patient regarding the heart murmur's presence noted during the examination. Assessment and Plan 1. Abdominal Pressure and Hematuria: I have sent the urine sample for culture to determine any bacterial growth in light of negative urinalysis findings. A referral to urology is likely necessary for further investigation. 2. Tobacco Use Disorder: Advising smoking cessation is crucial; follow-up with primary care for sustained support and management is recommended. 3. Family History of Bladder Cancer: A potential urology referral is indicated due to the family history, although coordination with Dr. Jane is necessary to finalize this process. 4. Heart murmur - heard today, she can fu with PCP on this I sent message to Dr Lara's [facility] work group to arrange fu now that Dr Richmond has retired; pt aware i placed uro referral but this may need to come from PCP and she is aware and willing to fu as recommended. Should ab be needed, i will send them in; however i do think she needs them at this time Consent Patient was informed and verbally consented to the use of an ambient scribe for clinic note documentation during this visit. Total time spent caring for the patient today was 30 minutes. This includes time spent before the visit reviewing the chart, time spent during the visit, and time spent after the visit on documentation, reviewing laboratory results, diagnostic imaging, medications, performing a medically necessary evaluation, counseling on diagnoses, care coordination, ordering appropriate tests, ordering appropriate medications, review of tests performed by other providers, reporting test results with the patient, communication with other healthcare providers. [facility] Medical History Anxiety Low vitamin D level Degenerative joint disease Elevated cholesterol HTN (hypertension) Surgical History S/P hip replacement H/O colonoscopy Social History Household Members: Other Housing: House Do you presently have visiting nurse or other home services: No Patient Tobacco Use Status: Current everyday Tobacco user Tobacco use type: Cigarette Cigarettes Per Day: 10 service: No Physical Exam Vital Signs: Last Vital Signs Temp 98.2 F 08/05/24 10:25 Pulse 99 08/05/24 10:25 Resp 16 08/05/24 10:25 BP 130/88 08/05/24 10:25 Pulse Ox 97 08/05/24 10:25 Oxygen Delivery Method Room Air 08/05/24 10:25 BMI result Body Mass Index 30.9 Results AMB Urinalysis, Automated UA Leukoctes 0 Da/uL Last Edit by Rosemarie Alvarez, PEGGY on 08/05/24 10:46 UA Nitrite Negative Last Edit by Rosemarie Alvarez, [employer] HEATER TENDER on 08/05/24 10:46 UA Urobilinogen 0.2 mg/dL Last Edit by Rosemarie Alvarez, [employer] HE[employer] TENDER on 08/05/24 10:46 UA Protein 0 mg/dL Last Edit by Rosemarie Alvarez, [employer] HE[employer] TENDER on 08/05/24 10:46 UA pH 6.0 Last Edit by Rosemarie Alvarez, [employer] HE[employer] TENDER on 08/05/24 10:46 UA Blood 80 Juancarlos/uL Last Edit by Rosemarie Alvarez, [employer] HE[employer] TENDER on 08/05/24 10:46 UA Specific [place] 1.025 Last Edit by Rosemarie Alvarez, [employer] HEATER TENDER on 08/05/24 10:46 UA Ketone Negative Last Edit by Rosemarie Alvarez, [employer] HE[employer] TENDER on 08/05/24 10:46 UA Bilirubin 0 mg/dL Last Edit by Rosemarie Alvarez, [employer] HEATER TENDER on 08/05/24 10:46 UA Glucose 0 mg/dL Last Edit by Rosemarie Alvarez, [employer] HEATER TENDER on 08/05/24 10:46 Results Reviewed Results Reviewed: Laboratory Last Values Urine pH (Auto) 6.0 08/05/24 10:25 Specific [place] (Auto) 1.025 08/05/24 10:25 Urine Protein (Auto) 0 mg/dL 08/05/24 10:25 Glucose (UA)(Auto) 0 mg/dL 08/05/24 10:25 Urine Ketones (Auto) Negative 08/05/24 10:25 Urine Blood (Auto) 80 Ju[place]arlos/uL 08/05/24 10:25 Urine Nitrite (Auto) Negative 08/05/24 10:25 Urine Bilirubin (Auto) 0 mg/dL 08/05/24 10:25 Urine Urobilinogen (Auto) 0.2 mg/dL 08/05/24 10:25 Leukocyte Esterase (Auto) 0 Da/uL 08/05/24 10:25 Assessment & Plan Assessment & Plan (1) Family history of bladder cancer: Comment: mom Code(s): Z80.52 - Family history of malignant neoplasm of bladder (2) Hematuria: Code(s): R31.9 - Hematuria, unspecified Qualifiers: Hematuria type: unspecified type Qualified Code(s): R31.9 - Hematuria, unspecified (3) Tobacco user: Code(s): Z72.0 - Tobacco use (4) Heart murmur on physical examination: Code(s): R01.1 - Cardiac murmur, unspecified Plan . Orders: Orders AMB Urinalysis Automated Today Z13.9 - Encounter for screening, unspecified Urine Culture Today R31.9 - Hematuria, unspecified, Z72.0 - Tobacco use, Z80.52 - Family history of malignant neoplasm of bladder Referrals Urology Referral R31.9 - Hematuria, unspecified, Z72.0 - Tobacco use, Z80.52 - Family history of malignant neoplasm of bladder Patient Instructions: Patient Instructions - A follow-up with Dr. Jane has been initiated. Await contact for her office regarding the appointment. - Until the consultation, increase fluid intake to ease symptoms. - Monitor for any new symptoms such as persistent burning during urination, fever, or increased abdominal pain, and seek prompt medical attention if they arise. - Consider cessation of tobacco use and discuss support options in the next visit. Coding Level of Care Code Est Pt Level 4 (66104) Diagnoses Family history of bladder cancer Z80.52 Hematuria, unspecified type R31.9 Hematuria type: unspecified type Tobacco user Z72.0 Heart murmur on physical examination R01.1
== END 2024-08-05 11:25 | disposition home or self-care (01) ==
LOC: HO.HMCWIC 10:20
PROVIDERS: Visit Provider Nurse Practitioner Family
DX: Z80.52 Family history of malignant neoplasm of bladder (principal); R31.9 Hematuria, unspecified; Z72.0 Tobacco use; R01.1 Cardiac murmur, unspecified; Z13.9 Encounter for screening, unspecified

== ENCOUNTER 2024-08-18 12:53 | Outpatient (REF) | payer MEDICARE, SELFPAY | END 2024-08-18 12:54 | disposition home or self-care (01) | LOC: HO.HMGCLDS 12:53 | PROVIDERS: PCP Internal Medicine; Visit Provider Internal Medicine | DX: N30.01 Acute cystitis with hematuria (principal) | CPT/HCPCS: 87086 ==

== ENCOUNTER 2024-09-22 09:12 | Outpatient (AMB) | payer MEDICARE, SELFPAY ==
--- NOTE | 2024-09-22 09:18 | A.OFFPC_ITS ---
Vital Signs 09/22/24 09:21 Height 5 ft 5 in Weight 185 lb BMI 30.8 BP 136/80 Respiration 16 Pulse 82 Pulse Source Pulse Oximeter Temp 98.1 F Temp Source Temporal Artery Scan Pulse Oximetry (%) 98 Oxygen Delivery Method Room Air Intake Visit Reasons: Routine - see comments Consulting Practice Director Required: No Accompanied by: Self / Same As Patient Allergies amoxicillin Allergy (Intermediate, Verified 09/22/24 09:19) Itching HPI HPI Comments History of Present Illness Details The patient is a 74 year old female with a past medical history of hypertension, OA, UTI presenting for follow up. Last seen by PCP 06/2023 for hospital follow up of pneumonia CV:On lisinopril, simvastatin, ASA. BP controlled. Denies chest pain, exertional dyspnea BH: Depression/anxiety on wellbutrin Frequent right femoral/pubic pain, increased with prolonged standing, lifting. Bulge appears in the area. History of colon polyps-05/2022 colonoscopy every 5 years ROS see HPI PHYSICAL EXAM: GENERAL: Alert and oriented x 3. NAD EYES: EOMI. Anicteric. HENT: Moist mucous membranes. No scleral icterus. No cervical lymphadenopathy. LUNGS: Clear to auscultation bilaterally. CARDIOVASCULAR: Regular rate and rhythm. No murmur. No JVD. ABDOMEN: Soft, right pubic fullness EXTREMITIES: No edema. Non-tender. SKIN: No rashes or lesions. Warm. NEUROLOGIC: No focal neurological deficits. CN II-XII grossly intact PSYCHIATRIC: Cooperative. Appropriate mood and affect [facility] Medical History (Updated 09/24/24 @ 10:07 by Lilia Jane MD) Anxiety Low vitamin D level Degenerative joint disease Elevated cholesterol HTN (hypertension) Surgical History (Updated 09/20/24 @ 18:54 by Le Kong) S/P hip replacement H/O colonoscopy (~06/05/22) Social History Household Members: Other Housing: House Do you presently have visiting nurse or other home services: No Patient Tobacco Use Status: Current everyday Tobacco user Tobacco use type: Cigarette Cigarettes Per Day: 10 service: No Questionnaire Thrive Questionnaire Date Thrive assessed: 06/06/23 Physical exam (Primary Care) Vital Signs: Last Vital Signs Temp 98.1 F 09/22/24 09:21 Pulse 82 09/22/24 09:21 Resp 16 09/22/24 09:21 BP 136/80 09/22/24 09:21 Pulse Ox 98 09/22/24 09:21 Oxygen Delivery Method Room Air 09/22/24 09:21 BMI result Body Mass Index 30.8 Tobacco/Smoking Status: Tobacco use Status Patient Tobacco Use Status Current everyday Tobacco 09/22/24 09:23 Tobacco use type Cigarette 09/22/24 09:23 Thrive Assessment: Date of Thrive Assessment Date Thrive assessed 06/06/23 09/22/24 09:23 Coding Level of Care Code New Pt Level 4 (01021) Complex EM visit Add On G2211 Diagnoses Unilateral femoral hernia without obstruction or gangrene, recurrence not specified K41.90 Obstruction and gangrene presence: without obstruction or gangrene Laterality: unilateral Recurrence: not specified as recurrent Abdominal mass of other site R19.09 Abdominal location: other location Primary hypertension I10 Hypertension type: primary hypertension Elevated cholesterol E78.00 Assessment & Plan Assessment & Plan (1) Femoral hernia: Code(s): K41.90 - Unilateral femoral hernia, without obstruction or gangrene, not specified as recurrent Category: Medical Qualifiers: Obstruction and gangrene presence: without obstruction or gangrene Laterality: unilateral Recurrence: not specified as recurrent Qualified Code(s): K41.90 - Unilateral femoral hernia, without obstruction or gangrene, not specified as recurrent (2) Abdominal mass: Code(s): R19.00 - Intra-abdominal and pelvic swelling, mass and lump, unspecified site Category: Medical Qualifiers: Abdominal location: other location Qualified Code(s): R19.09 - Other intra-abdominal and pelvic swelling, mass and lump (3) HTN (hypertension): Code(s): I10 - Essential (primary) hypertension Category: Medical Qualifiers: Hypertension type: primary hypertension Qualified Code(s): I10 - Essential (primary) hypertension (4) Elevated cholesterol: Code(s): E78.00 - Pure hypercholesterolemia, unspecified Category: Medical Plan 74 year old female to establish care Past medical, surgical, social reviewed Right pubic discomfort, bulge. CT ordered. REfer general surgery Mammogram ordered Labs ordered Increase buproprion 300mg daily Orders: Orders IRON PROFILE 09/22/24 E78.00 - Pure hypercholesterolemia, unspecified, I10 - Essential (primary) hypertension, R01.1 - Cardiac murmur, unspecified, R53.83 - Other fatigue Vitamin B12 and Folate 09/22/24 E78.00 - Pure hypercholesterolemia, unspecified, I10 - Essential (primary) hypertension, R01.1 - Cardiac murmur, unspecified, R53.83 - Other fatigue Vitamin D 25-OH (D2 and D3) 09/22/24 E78.00 - Pure hypercholesterolemia, un specified, I10 - Essential (primary) hypertension, R01.1 - Cardiac murmur, unspecified, R53.83 - Other fatigue TSH reflex Free T4 09/22/24 E78.00 - Pure hypercholesterolemia, unspecified, I10 - Essential (primary) hypertension, R01.1 - Cardiac murmur, unspecified, R53.83 - Other fatigue MM screening mammo BI 09/22/24 Z12.31 - Encounter for screening mammogram for malignant neoplasm of breast Complete Blood Count Auto Diff 09/22/24 E78.00 - Pure hypercholesterolemia, unspecified, I10 - Essential (primary) hypertension, R01.1 - Cardiac murmur, unspecified, R53.83 - Other fatigue Hemoglobin A1c 09/22/24 E78.00 - Pure hypercholesterolemia, unspecified, I10 - Essential (primary) hypertension, R01.1 - Cardiac murmur, unspecified, R53.83 - Other fatigue Comprehensive Met. Panel 09/22/24 E78.00 - Pure hypercholesterolemia, unspecified, I10 - Essential (primary) hypertension, R01.1 - Cardiac murmur, unspecified, R53.83 - Other fatigue Lipid Panel 09/22/24 E78.00 - Pure hypercholesterolemia, unspecified, I10 - Essential (primary) hypertension, R01.1 - Cardiac murmur, unspecified, R53.83 - Other fatigue Lyme IgG/IgM w/reflex to WB 09/22/24 E78.00 - Pure hypercholesterolemia, unspecified, I10 - Essential (primary) hypertension, R01.1 - Cardiac murmur, unspecified, R53.83 - Other fatigue CT abdomen pelvis w IV con 09/22/24 K41.90 - Unilateral femoral hernia, without obstruction or gangrene, not specified as recurrent, R19.00 - Intra-abdominal and pelvic swelling, mass and lump, unspecified site Referrals General Surgery Referral K41.90 - Unilateral femoral hernia, without obstruction or gangrene, not specified as recurrent Medications: New bupropion HCl XL 300 mg PO DAILY 90 tabs 3RF
[2024-09-22 09:21] VITALS: BP 136/80; PULSE 82; RESP 16; TEMP 36.7; O2SAT 98; BMI 30.8
== END 2024-09-22 09:40 | disposition home or self-care (01) ==
LOC: HO.HMCHD 09:12
PROVIDERS: PCP Internal Medicine; Visit Provider Internal Medicine
DX: K41.90 Unilateral femoral hernia, without obstruction or gangrene, not specified as recurrent (principal); R19.09 Other intra-abdominal and pelvic swelling, mass and lump; I10 Essential (primary) hypertension; E78.00 Pure hypercholesterolemia, unspecified

== ENCOUNTER 2024-09-22 09:52 | Outpatient (REF) | payer MEDICARE, SELFPAY ==
[2024-09-22 13:50] LABS: MANUAL DIFF FLAG NO
[2024-09-22 14:00] LABS: Basophils Absolute Auto 0.1 X10*3/uL (0.0-0.2); Basophils Percent Auto 0.8 % (0-2); Eosinophils Absolute Auto 0.2 X10*3/uL (0.0-0.4); Eosinophils Percent Auto 2.1 % (0-4); Hematocrit 40.1 % (37.0-47.0); Hemoglobin 13.4 g/dl (12.0-16.0); Imm Gran Abs Auto 0.02 X10*3/uL (0.00-0.03); Imm Gran Pct Auto 0.3 % (0.0-0.4); Lymphocytes Absolute Auto 1.8 X10*3/uL (1.2-4.9); Lymphocytes Percent Auto 24.2 % (20-40); Mean Corpuscular HGB Conc 33.4 g/dl (31.0-35.0); Mean Corpuscular Hemoglobin 32.1 pg (27.0-33.0); Mean Corpuscular Volume 96.2 fL (80.0-98.0); Mean Platelet Volume 12.4 fL (9.4-12.3); Monocytes Absolute Auto 0.6 X10*3/uL (0.1-1.2); Monocytes Percent Auto 8.5 % (2-11); Neutrophils Absolute Auto 4.8 x10*3/uL (2.0-8.3); Neutrophils Percent Auto 64.1 % (45-73); Platelet Count 252 X10*3/uL (160-400); Red Blood Count 4.17 X10*6/uL (4.20-5.50); Red Cell Distribution Width 12.2 % (11.0-16.0); White Blood Count 7.5 X10*3/uL (4.8-10.8)
[2024-09-22 14:14] LABS: Estimated Average Glucose 117 mg/dL; Hemoglobin A1C 134.8575 umol/L; Hemoglobin A1c % 5.7 % (<6.0); Total Hemoglobin (HGBA1C) 3497.9815 umol/L
[2024-09-22 14:26] LABS: Alanine Aminotransferase 15 U/L (0-31); Albumin Level 4.2 g/dL (3.5-5.0); Alkaline Phosphatase 72 U/L (39-117); Anion Gap 12 (12-20); Aspartate Amino Transferase 23 U/L (5-31); Bilirubin Total 0.4 mg/dL (0.0-1.0); Blood Urea Nitrogen 13 mg/dL (9-16); Calcium 9.9 mg/dL (8.4-10.2); Carbon Dioxide 28 mmol/L (22-29); Chloride 104 mmol/L (96-108); Cholesterol 179 mg/dL (<200); Estimated Glomerular Filt Rate > 60; Glucose Random 94 mg/dL (60-115); HDL Cholesterol 65 mg/dL (>40); Iron 100 mcg/dL (30-160); LDL Cholesterol Calculated 100 mg/dL (<100); Percent Iron Saturation 37 % (15-50); Potassium 4.4 mmol/L (3.3-5.1); Sodium 140 mmol/L (135-145); TSH reflex Free T4 0.69 uIU/mL (0.32-4.0); Total Iron Binding Capacity 271 mcg/dL (228-428); Total Protein 6.9 g/dL (6.5-8.0); Triglycerides 73 mg/dL (<150); Unsaturated Iron Binding 171 ug/dL
[2024-09-22 14:41] LABS: Folate 18.2 ng/mL (> or = 4.0); Vitamin B12 431 pg/mL (200-900)
[2024-09-23 06:33] LABS: Lyme Abs Screen <0.90 index
[2024-09-27 13:19] LABS: Vitamin D 25-OH, D2 <4 ng/mL; Vitamin D 25-OH, D3 40 ng/mL; Vitamin D 25-OH, Total 40 ng/mL (30-100)
== END 2024-09-22 09:53 | disposition home or self-care (01) ==
LOC: HO.10HDL 09:52
PROVIDERS: Visit Provider Internal Medicine
DX: K41.90 Unilateral femoral hernia, without obstruction or gangrene, not specified as recurrent (principal); R19.09 Other intra-abdominal and pelvic swelling, mass and lump; I10 Essential (primary) hypertension; E78.00 Pure hypercholesterolemia, unspecified; R01.1 Cardiac murmur, unspecified; R53.83 Other fatigue
CPT/HCPCS: 36415; 80053; 80061; 82306; 82607; 82746; 83036; 83540; 84443; 85025; 86617; 86618; 99202

== ENCOUNTER 2024-10-04 08:38 | Outpatient (AMB) | payer MEDICARE, SELFPAY ==
--- NOTE | 2024-10-04 08:42 | MHC.OFFVIS ---
Intake Visit Reasons: microscopic hematuria Intake Note: New patient presents today for initial visit for microscopic hematuria Urology Medication:None Blood Thinner:Aspirin Antibiotic Allergies:Amoxicillin Allergies amoxicillin Allergy (Intermediate, Verified 10/04/24 09:20) Itching Medication List - Last Reconciled 10/04/24 by JUAN Ott- aspirin 81 mg PO DAILY bupropion HCl XL 300 mg PO DAILY estradiol 0.01%(0.1mg/gram) (Estrace) 2 grams vaginal DAILY 90 days lisinopril 1 tab PO DAILY simvastatin 1 tab PO DAILY HPI Comments Details: Rosemarie is a 74-year-old pleasant female patient of Dr. Belinda Rivers. She has a past medical history of anxiety, degenerative joint disease, hypertension, and hypercholesteremia. In discussion with the patient today she reports following up with her PCP as she experienced a bout of gross hematuria earlier this year when she was on vacation. She reports following up with in urgent care while she was out on vacation and was noted to have a urinary tract infection. She does report a longstanding history of nicotine dependence over the last 50 years. She reports smoking approximately half a pack of cigarettes per day. She also reports a familial history of bladder cancer. She reports her mother was diagnosed with bladder cancer in her 80s. She reports having experienced another urinary tract infection 2 months ago and following up with urgent care services through [facility]. We discussed potential causes of recurrent urinary tract infections as well as gross hematuria. In office urinalysis results reviewed with the patient today. Microscopic hematuria noted. We discussed further workup of gross hematuria in risks and benefits of these interventions. She currently denies any bothersome urinary issues. She denies urinary urgency, urinary frequency, incontinence, nocturia, dysuria, foul smelling urine, changes to urinary stream, flank pain, fever, and or chills. She is happy with her current voiding parameters. She reports episode of gross hematuria has since subsided. We discussed obtaining CT urogram and follow-up with cystoscopy. She is agreeable all questions were answered. She otherwise offers no other issues or concerns at this time. Plan The patient will proceed with a CT scan to assess for any underlying urological conditions contributing to her hematuria, with necessary blood work to evaluate kidney function before the scan. A cystoscopy will follow to directly visualize the bladder. Smoking cessation was discussed, emphasizing its impact on urinary health. The patient was informed about the use of Estradiol cream to prevent further UTIs, and it will be prescribed. Follow-up will be arranged to review diagnostic results and to plan further management based on the findings. Patient was informed and verbally consented to the use of an ambient scribe for clinic note documentation during this visit. Discussion Notes I discussed with the patient the likelihood of various causes for her hematuria. We reviewed the diagnostic plan, which includes a CT scan and cystoscopy, to ensure thorough evaluation. The benefits, risks, and alternatives of these procedures were explained, and the patient consented to proceed. I emphasized the importance of smoking cessation, discussing its detrimental effects on bladder health, although ultimately leaving the decision to her discretion. For UTI prevention, I recommended Estradiol cream, explaining its use and anticipated timeline for effectiveness. We also discussed the process and expected timeframe for obtaining insurance authorization for the CT scan. Follow-up instructions were provided, including contacting our office in the event of future UTIs for expedited care. [facility] Medical History Anxiety Low vitamin D level Degenerative joint disease Elevated cholesterol HTN (hypertension) Surgical History S/P hip replacement H/O colonoscopy (~06/05/22) Social History Household Members: Other Housing: House Do you presently have visiting nurse or other home services: No Patient Tobacco Use Status: Current everyday Tobacco user Tobacco use type: Cigarette Cigarettes Per Day: 10 service: No Review of Systems Const All systems reviewed & are unremarkable except as noted in HPI and below Physical Exam Const General: cooperative, healthy appearing, comfortable, no acute distress, well developed, alert and awake Orientation/consciousness: patient oriented x3 Limitations: no limitations HEENT Head: Yes normal to inspection, Yes normocephalic and Yes atraumatic Ears: hearing grossly normal bilaterally Eyes General: appearance normal, both eyes and all related structures Neck Neck: Yes normal visual inspection and Yes trachea midline Chest Chest palpation & inspection: normal inspection of the chest Resp Effort & Inspection: normal respiratory effort and able to speak in complete sentences Cardio Rate: regular rate GI Inspection: Yes normal to inspection General: Yes no CVA tenderness Back/Spine/Pelvis Back: no CVA tenderness Skin General skin exam: no rashes or lesions noted Neuro General: patient oriented x3 Extrem General: Yes normal to inspection Psych Appearance: grossly normal and well kempt Mental Status: mental status grossly normal Speech and movement: Normal speech and movement present and Clear speech present Affect: normal affect Attitude: cooperative Thought process: Normal thought process present Thought content: Normal thought content present Insight: Fair insight present (Psych) Judgement: Fair judgement present (Psych) Assessment & Plan Assessment & Plan (1) Tobacco user: Code(s): Z72.0 - Tobacco use Category: Social Hx (2) Hematuria: Code(s): R31.9 - Hematuria, unspecified Category: Medical Qualifiers: Hematuria type: unspecified type Qualified Code(s): R31.9 - Hematuria, unspecified (3) Family history of bladder cancer: Comment: mom Code(s): Z80.52 - Family history of malignant neoplasm of bladder Category: Medical (4) UTI (urinary tract infection): Code(s): N39.0 - Urinary tract infection, site not specified Category: Medical Qualifiers: Hematuria presence: with hematuria Urinary tract infection type: acute cystitis Qualified Code(s): N30.01 - Acute cystitis with hematuria Plan In office urinalysis results reviewed with the patient today; as noted above; will send for urine cytology. Will obtain CT urogram for further assessment evaluation. We discussed at length potential causes of recurrent urinary tract infections as well as gross hematuria. BUN and creatinine ordered for imaging. Start Estrace cream as discussed and prescribed. We discussed the importance of limiting/quitting nicotine dependence for overall health and well-being. She currently denies any bothersome urinary issues. She reports be happy with current voiding parameters. Discussed UTI prevention with D mannose supplement, vitamin-C, increasing fluid intake, behavioral therapy with timed voiding, perineal hygiene and postcoital voiding, and management of constipation with stool softeners and increased fiber intake. Follow-up next available in office cystoscopy with imaging and labs to be completed prior; or sooner with any issues, concerns, and or questions. Orders: Orders Blood Urea Nitrogen Today R31.9 - Hematuria, unspecified Creatinine Today R31.9 - Hematuria, unspecified Urine Cytology Today R31.9 - Hematuria, unspecified, Z72.0 - Tobacco use CT urogram Today R31.0 - Gross hematuria Medications: New estradiol 0.01%(0.1mg/gram) (Estrace) Apply a pea-sized amount to urethra daily x1 month and then 3 times a week thereafter 2 grams vaginal DAILY 90 days 42.5 grams 4RF Patient Instructions: The patient had an opportunity to ask questions regarding the treatment plan. All questions were answered. Physical exam, labs, and imaging were discussed and reviewed in detail. As well as risks, benefits, and discussion of treatment choices. No major barriers to understanding were identified. The patient expressed understanding and agreement with the above treatment plan. The patient was made aware they should contact our office by phone for worsening of their current condition, the appearance of new symptoms, or with any questions or concerns. Compliance is encouraged with any medications and follow up testing that is ordered. It is a privilege to be allowed the opportunity to participate in? your urological care.? Again, if you have any questions or concerns If you have any questions or concerns please do not hesitate to contact me. The office is [phone]. This note is constructed using voice recognition software. While every effort has been made to ensure accuracy critical care paramedic errors may have been included. Yours sincerely, ALEJANDRO Ott Coding Level of Care Code New Pt Level 4 (99947) Diagnoses Tobacco user Z72.0 Hematuria, unspecified type R31.9 Hematuria type: unspecified type Family history of bladder cancer Z80.52 Acute cystitis with hematuria N30.01 Hematuria presence: with hematuria Urinary tract infection type: acute cystitis
== END 2024-10-04 09:17 | disposition home or self-care (01) ==
LOC: HO.HUSH 08:39
PROVIDERS: Visit Provider Nurse Practitioner Family
DX: N30.01 Acute cystitis with hematuria (principal); Z72.0 Tobacco use; Z80.52 Family history of malignant neoplasm of bladder; Z13.9 Encounter for screening, unspecified
CPT/HCPCS: 99204

== ENCOUNTER 2024-10-04 08:38 | Outpatient (REF) | payer MEDICARE, SELFPAY ==
[2024-10-04 16:55] LABS: Urine Cytology See Pathology rpt
== END 2024-10-04 08:39 | disposition home or self-care (01) ==
LOC: HO.LAB 08:38
PROVIDERS: Visit Provider Nurse Practitioner Family
DX: N30.01 Acute cystitis with hematuria (principal); Z72.0 Tobacco use; Z80.52 Family history of malignant neoplasm of bladder
CPT/HCPCS: 81003; 88112; 99202

== ENCOUNTER 2024-10-17 08:27 | Outpatient (REF) | payer MEDICARE, SELFPAY ==
--- NOTE | ~2024-10-17 | MM_ITS ---
EXAMINATION: MM SCREENING DIGITAL BREAST TOMOSYNTHESIS, BILATERAL CLINICAL INFORMATION: Screening. Asymptomatic. COMPARISON: Mammography: Comparison is made with available priors TECHNIQUE: Digital breast mammography with tomosynthesis is performed in both the craniocaudal and mediolateral oblique views along with computer-aided detection (CAD). FINDINGS: There are scattered areas of fibroglandular density (ACR BI-RADS breast composition Category b). There are no significant masses, abnormal calcifications, or other abnormalities. MM/MM tomosynthesis screening BI IMPRESSION: No mammographic evidence of malignancy. ASSESSMENT: BI-RADS BI-RADS 1 - Negative RECOMMENDATION: Routine annual mammography screening. 1 year F/U This examination should not preclude the clinical evaluation of a suspicious palpable abnormality. This patient's information was entered into a reminder system with a target due date for their next mammogram. Electronically signed by: Екатерина Bolanos DO 10/24/2024 10:31 AM EDT
[2024-10-17 10:45] LABS: Blood Urea Nitrogen 13 mg/dL (9-16); Estimated Glomerular Filt Rate > 60
== END 2024-10-17 08:28 | disposition home or self-care (01) ==
LOC: HO.MAMMO 08:27
PROVIDERS: PCP Internal Medicine; Referring Provider Nurse Practitioner Family; Visit Provider Internal Medicine
DX: Z12.31 Encounter for screening mammogram for malignant neoplasm of breast (principal); R31.9 Hematuria, unspecified
CPT/HCPCS: 36415; 77063; 77067; 82565; 84520

== ENCOUNTER → 2024-10-17 08:45 | Outpatient (BNV) | payer MEDICARE, SELFPAY | PROVIDERS: PCP Internal Medicine; Referring Provider Nurse Practitioner Family; Visit Provider Internal Medicine | DX: Z12.31 Encounter for screening mammogram for malignant neoplasm of breast (principal) | CPT/HCPCS: 77063; 77067 ==

== ENCOUNTER 2024-10-22 19:06 | Inpatient (IN) | payer MEDICARE, SELFPAY ==
--- NOTE | ~2024-10-22 | CT_ITS ---
CLINICAL HISTORY: sbo, incarcerated right inguinal hernia?? CT abdomen and pelvis with contrast Comparison: None Findings: The lung bases are clear. Gallstones in the dependent gallbladder. No focal hepatic lesion. Pancreas, spleen and adrenal glands are within normal limits. Kidneys enhance symmetrically and are non hydronephrotic. Small probable renal cysts are present bilaterally. Right inguinal hernia contains a loop of small bowel and fluid. There is fecalization of more proximal small bowel contents. No significantly dilated bowel to suggest obstruction. Scattered sigmoid diverticula are present without diverticulitis. Bilateral hip arthroplasties cause metallic artifact degrading some of the provided images of the pelvis. No acute fracture. Atherosclerotic vascular calcifications are present. IMPRESSION: Right inguinal hernia containing a knuckle of terminal ileum and fluid. More proximal small bowel demonstrates fecalization of small bowel contents, typically associated with obstruction, however small bowel loops are not significantly dilated. Findings may represent partial or low-grade bowel obstruction. This document has been electronically signed by: Tom Carballo MD, PHD on 10/23/2024 00:19:54
--- NOTE | 2024-10-22 19:24 | ED.ABDPAIN ---
HPI - Abdominal Pain General Chief Complaint: General Medical Stated Complaint: hernia Time Seen by Provider: 10/22/24 20:35 Source: patient Limitations: no limitations History of Present Illness ED Provider: Cary Dumont PA-C HPI narrative: 74-year-old female with a history of hypertension, hyperlipidemia, known right femoral hernia, presents with the abdominal pain since earlier today. Patient states she is having focal pain over her known femoral hernia, she states it is swollen, and is not reducible. Associated abdominal distention, the patient states that her abdomen becomes tense in rigid at times. Associated nausea but no vomiting, the patient is not passing flatus from below. Denies fever. Related Data Home Medications ?Medication ?Instructions ?Recorded ?Confirmed aspirin 81 mg tablet,delayed 81 mg PO DAILY 06/04/22 08/05/24 release lisinopril 5 mg tablet 1 tab PO DAILY 06/04/22 08/05/24 simvastatin 40 mg tablet 1 tab PO DAILY 06/04/22 08/05/24 Previous Rx's ?Medication ?Instructions ?Recorded bupropion HCl 300 mg 24 hr tablet, 300 mg PO DAILY #90 tabs 09/22/24 extended release estradiol 0.01% (0.1 mg/gram) 2 g vaginal DAILY 90 days #42.5 10/04/24 vaginal cream (Estrace) grams Readi-Cat 2 2 % (w/v) oral See Rx Instructions PO .COMPLEX 10/05/24 suspension (barium sulfate) #900 mL Allergies Allergy/AdvReac Type Severity Reaction Status Date / Time amoxicillin Allergy Intermediate Itching Verified 10/22/24 19:26 Review of Systems Review of Systems Yes all other systems are reviewed and are negative Constitutional: Denies fatigue and Denies fever(s) Cardiovascular: Denies chest pain and Denies dyspnea Respiratory: Denies dyspnea Gastrointestinal: Reports abdominal pain, Denies diarrhea, Reports nausea and Denies vomiting Endocrine: Denies fatigue PMFSH Past Medical History Attestation statement: The following information was validated with the patient. Medical History Anxiety Low vitamin D level Degenerative joint disease Elevated cholesterol HTN (hypertension) Surgical History S/P hip replacement H/O colonoscopy (~01/27/23) Social History Social History Household Members: Other Housing: House Do you presently have visiting nurse or other home services: No Patient Tobacco Use Status: Current everyday Tobacco user Tobacco use type: Cigarette Cigarettes Per Day: 10 Smoked in Last 30 Days: No Use of substances other than those prescribed or required for medical reasons: No Advance Directives: No Advance Directives Information Provided: Yes service: No Physical Exam ED Vital Signs: Vital Signs - 24 hr 10/22/24 19:25 Temperature 98 F Pulse Rate 84 Respiratory Rate 16 Blood Pressure 175/90 H Pulse Oximetry 95 Oxygen Delivery Method Room Air BMI result Body Mass Index 30.7 Const Other: Alert well-appearing Orientation/consciousness: patient oriented x3 GI Other: Abdomen is soft, minimal distention, focal pain over right lower abdomen in relation to the known hernia, I can palpate the defect, it is not reducible, there were no overlying skin changes that are ecchymotic, patient is guarding against my exam Skin Other: Warm dry no rash Neuro General: patient oriented x3, gait normal, no focal motor deficits and CN's II-XI intact bilaterally Psych Other: Cooperative Course Course Course Narrative: Ariane Singleton APRN This is a rapid medical exam, Deferred additional HPI, ROS, PE to primary provider. 74 yo female with PMH HTN, HLD, anxiety/depression, previous umbilical hernia repair here with complaints of right groin pain at the site of her hernia. Has an appointment in 8 days with a surgeon. This pain began today at 1pm. Will obtain labs, UA VSS Reevaluation(s) Reevaluation #1: per Dr. Mixon .... Patient will be made NPO in preparation for surgery in the morning, the patient's pain and nausea are currently controlled if she does not move Time: 00:40 Medical Decision Making Medical Decision Making MDM Narrative: 74-year-old female with a history of hypertension, hyperlipidemia, known right femoral hernia, presents with the abdominal pain since earlier today. Patient states she is having focal pain over her known femoral hernia, she states it is swollen, and is not reducible. Associated abdominal distention, the patient states that her abdomen becomes tense in rigid at times. Associated nausea but no vomiting, the patient is not passing flatus from below. Denies fever. Problem: Known right femoral hernia History: Per patient I have considered the following differential diagnoses: Bowel obstruction, strangulated hernia, incarcerated hernia, constipation Plan: I am concerned for obstruction given the nature of the patient's symptoms, she has a palpable non reducible hernia, we will be obtaining a CT scan of the abdomen and pelvis with oral contrast, giving Zofran morphine and IV fluid. I have independently reviewed the following tests: Labs: No leukocytosis, not anemic, no electrolyte abnormalities noted, urine not infected CT abdomen and pelvis:The lung bases are clear. Gallstones in the dependent gallbladder. No focal hepatic lesion. Pancreas, spleen and adrenal glands are within normal limits. Kidneys enhance symmetrically and are non hydronephrotic. Small probable renal cysts are present bilaterally. Right inguinal hernia contains a loop of small bowel and fluid. There is fecalization of more proximal small bowel contents. No significantly dilated bowel to suggest obstruction. Scattered sigmoid diverticula are present without diverticulitis. Bilateral hip arthroplasties cause metallic artifact degrading some of the provided images of the pelvis. No acute fracture. Atherosclerotic vascular calcifications are present. IMPRESSION: Right inguinal hernia containing a knuckle of terminal ileum and fluid. More proximal small bowel demonstrates fecalization of small bowel contents, typically associated with obstruction, however small bowel loops are not significantly dilated. Findings may represent partial or low-grade bowel obstruction. We will be paging Dr. Mixon for consult Lab Data 10/22/24 19:35 10/22/24 19:35 Labs: Lab Results 10/22/24 10/22/24 Range/Units 19:35 22:29 WBC 9.1 (4.8-10.8) X10*3/uL RBC 4.17 L (4.20-5.50) X10*6/uL Hgb 13.3 (12.0-16.0) g/dl Hct 38.7 (37.0-47.0) % MCV 92.8 (80.0-98.0) fL MCH 31.9 (27.0-33.0) pg MCHC 34.4 (31.0-35.0) g/dl RDW 11.6 (11.0-16.0) % Plt Count 285 (160-400) X10*3/uL MPV 11.1 (9.4-12.3) fL Immature Gran % (Auto) 0.1 (0.0-0.4) % Neut % (Auto) 65.6 (45-73) % Lymph % (Auto) 23.3 (20-40) % [place] % (Auto) 7.7 (2-11) % Eos % (Auto) 2.4 (0-4) % Baso % (Auto) 0.9 (0-2) % Lymph # (Auto) 2.1 (1.2-4.9) X10*3/uL [place] # (Auto) 0.7 (0.1-1.2) X10*3/uL Eos # (Auto) 0.2 (0.0-0.4) X10*3/uL Baso # (Auto) 0.1 (0.0-0.2) X10*3/uL Abs Immat Gran (auto) 0.01 (0.00-0.03) X10*3/uL Absolute Neuts (auto) 6.0 (2.0-8.3) x10*3/uL Absolute Nucleated RBC 0.000 (0.0-0.012) X10*3/uL Nucleated RBC % (auto) 0.0 (0.0-0.2) /100WBC Sodium 142 (135-145) mmol/L Potassium 4.3 (3.3-5.1) mmol/L Chloride 105 (96-108) mmol/L Carbon Dioxide 27 (22-29) mmol/L Anion Gap 14 (12-20) BUN 12 (9-16) mg/dL Creatinine 0.69 (0.5-1.4) mg/dL Estim Creat Clear Calc 76.4 Estimated GFR > 60 Random Glucose 107 (60-115) mg/dL Calcium 9.9 (8.4-10.2) mg/dL Urine Color Yellow Urine Appearance Clear Urine pH 6.5 (5.0-9.0) Ur Specific [place] <= 1.005 (1.005-1.025) Urine Protein Negative (Neg-Trace) mg/dL Urine Glucose (UA) Negative (Negative) mg/dL Urine Ketones Negative (Negative) mg/dL Urine Blood Negative (Negative) Urine Nitrite Negative (Negative) Ur Leukocyte Esterase Negative (Negative) Medications Administered Discontinued Medications Generic Name Dose Route Start Last Admin Trade Name Freq PRN Reason Stop Dose Admin Diatrizoate Meglum/Diatrizoate Sod 30 ml 10/22/24 23:05 10/22/24 23:05 Diatrizoate Meglumine, Sodium 30 Ml Solution PO 10/22/24 23:06 30 ml ONCE ONE Administration Sodium Chloride 1,000 mls @ 999 mls/hr 10/22/24 20:45 10/22/24 21:45 Ns IV 10/22/24 21:45 Infused .Q1H1M JG Infusion Iohexol 100 ml 10/22/24 23:04 10/22/24 23:05 Iohexol 350 Mg/Ml 100 Ml Infus..Btl IV 10/22/24 23:05 85 ml ONCE ONE Administration Morphine Sulfate 4 mg 10/22/24 20:43 10/22/24 21:03 Morphine Sulfate 4 Mg/Ml Cartridge IVPUSH 10/22/24 20:44 4 mg ONCE ONE Administration Protocol Ondansetron HCl 4 mg 10/22/24 20:43 10/22/24 21:03 Ondansetron Hcl 4 Mg/2 Ml Vial IVPUSH 10/22/24 20:44 4 mg ONCE ONE Administration Discharge Plan Discharge Clinical Impression: Bowel obstruction Patient Disposition: Admitted As Inpatient Prescriptions: No Action Readi-Cat 2 2 % (w/v) suspension See Rx Instructions PO .COMPLEX Qty: 900 0RF Rx Instructions: orally per radiology instructions 2 bottles aspirin 81 mg Tablet,Delayed Release (Dr/Ec) 81 mg PO DAILY simvastatin 40 mg tablet 1 tab PO DAILY lisinopril 5 mg tablet 1 tab PO DAILY estradiol [Estrace] 0.01 % (0.1 mg/gram) cream 2 g vaginal DAILY 90 Days Qty: 42.5 4RF Rx Instructions: Apply a pea-sized amount to urethra daily x1 month and then 3 times a week thereafter bupropion HCl 300 mg tablet extended release 24 hr 300 mg PO DAILY Qty: 90 3RF Print Language: Icelandic
[2024-10-22 19:25] VITALS: BP 175/90; PULSE 84; RESP 16; TEMP 36.6; O2SAT 95; BMI 30.7
[2024-10-22 19:41] LABS: MANUAL DIFF FLAG NO
[2024-10-22 19:43] LABS: Basophils Absolute Auto 0.1 X10*3/uL (0.0-0.2); Basophils Percent Auto 0.9 % (0-2); Eosinophils Absolute Auto 0.2 X10*3/uL (0.0-0.4); Eosinophils Percent Auto 2.4 % (0-4); Hematocrit 38.7 % (37.0-47.0); Hemoglobin 13.3 g/dl (12.0-16.0); Imm Gran Abs Auto 0.01 X10*3/uL (0.00-0.03); Imm Gran Pct Auto 0.1 % (0.0-0.4); Lymphocytes Absolute Auto 2.1 X10*3/uL (1.2-4.9); Lymphocytes Percent Auto 23.3 % (20-40); Mean Corpuscular HGB Conc 34.4 g/dl (31.0-35.0); Mean Corpuscular Hemoglobin 31.9 pg (27.0-33.0); Mean Corpuscular Volume 92.8 fL (80.0-98.0); Mean Platelet Volume 11.1 fL (9.4-12.3); Monocytes Absolute Auto 0.7 X10*3/uL (0.1-1.2); Monocytes Percent Auto 7.7 % (2-11); Neutrophils Percent Auto 65.6 % (45-73); Platelet Count 285 X10*3/uL (160-400); Red Blood Count 4.17 X10*6/uL (4.20-5.50); Red Cell Distribution Width 11.6 % (11.0-16.0); White Blood Count 9.1 X10*3/uL (4.8-10.8)
[2024-10-22 19:53] LABS: Anion Gap 14 (12-20); Blood Urea Nitrogen 12 mg/dL (9-16); Calcium 9.9 mg/dL (8.4-10.2); Carbon Dioxide 27 mmol/L (22-29); Chloride 105 mmol/L (96-108); Creatinine Clr Calc Pharmacy 76.4; Estimated Glomerular Filt Rate > 60; Glucose Random 107 mg/dL (60-115); Potassium 4.3 mmol/L (3.3-5.1); Sodium 142 mmol/L (135-145)
[2024-10-22] MEDS: 0.9 % Sodium Chloride 1,000 ML 999 ML IV (21:02)
[2024-10-22] MEDS: ondansetron HCL 4 MG/2 ML VIAL IVPUSH (21:03)
[2024-10-22] MEDS: Morphine Sulfate 4 MG/ML CARTRIDGE IVPUSH (21:03)
[2024-10-22 22:36] LABS: Appearance Urine Clear; Color Urine Yellow; Glucose Urine UA Negative (Negative); Leukocyte Esterase Urine Negative (Negative); Nitrite Urine Negative (Negative); PH 6.5 (5.0-9.0); Specific Gravity - Urine <= 1.005 (1.005-1.025); Urine Blood Negative (Negative); Urine Ketones Negative (Negative); Urine Protein Negative (Neg-Trace)
[2024-10-22] MEDS: iohexoL 350 MG/ML 100 ML INFUS..BTL IV (23:05)
[2024-10-22] MEDS: Diatrizoate Meglumine, Sodium 30 ML SOLUTION PO (23:05)
--- NOTE | 2024-10-22 23:54 | PC.NURSE ---
Pt resting quietly on stretcher. Daughter at bedside. Call fritz in reach and patient understands use. Educated patient about waiting for CT results before eating or drinking anything. Pt verbalized understanding.
[2024-10-23] VITALS (11 sets, daily range): BP systolic 115–145; BP diastolic 54–82; PULSE 66–83; RESP 14–18; TEMP 36.2–36.9; O2SAT 90–95; BMI 30.7
[2024-10-23] MEDS: Melatonin 3 MG TABLET 6 MG PO (01:25)
--- NOTE | 2024-10-23 01:40 | PC.NURSE ---
Pt resting comfortably on stretcher. Pt understands NPO order. Pt medicated per JUL> Call fritz in reach.
[2024-10-23] MEDS: Morphine Sulfate 4 MG/ML CARTRIDGE 3 MG IVPUSH (04:55)
--- NOTE | 2024-10-23 07:37 | PM.HPGS ---
History of Present Illness History of Present Illness Date of Service: 10/26/24 Chief complaint: worsening hernia Narrative: Rosemarie Butcher is a 74 year old female here in the ED for right groin pain. She says that she has had this lump on the right groin for about 6 weeks now. She has seen her primary care physician previously for this. She says she was supposed to have a CAT scan as well as a referral to a surgeon for a right inguinal hernia. However, she says that she has not had this done yet so far. She says that she would often have periodic burning pain in the right groin which would subside after a few minutes. However, yesterday starting around 01:00 in the afternoon, she said that she had another episode which persisted. She therefore was brought to the ER by her daughter last night. She denied any nausea or vomiting. She is passing flatus. She says that her pain had improved significantly with morphine. She says that currently her pain is minimal although she admits to having received morphine a few hours ago She says she is not nauseous at all. Review of Systems Constitutional: Constitutional: Denies chills and Denies fever(s) Cardiovascular: Cardiovascular: Denies chest pain, Denies dyspnea and Denies dyspnea on exertion Respiratory: Respiratory: Denies cough, Denies dyspnea and Denies dyspnea on exertion Gastrointestinal: Gastrointestinal: Denies hematochezia and Denies change in bowel habits Genitourinary: Genitourinary: Denies hematuria Musculoskeletal: Musculoskeletal: Denies back pain and Denies limited range of motion Neurologic: Denies focal weakness and Denies convulsions Psychiatric: Psychiatric: Denies depression and Denies mood swings [facility] Past Medical History Medical History Right inguinal hernia Anxiety Low vitamin D level Degenerative joint disease Elevated cholesterol HTN (hypertension) Surgical History Surgical History S/P hip replacement H/O colonoscopy (~06/05/22) Social History Social History Household Members: Other Housing: House Are you a primary healthcare interpreter to a significant other at home: No Do you presently have visiting nurse or other home services: No Patient Tobacco Use Status: Current everyday Tobacco user Tobacco use type: Cigarette Cigarette Packs Per Day: 10 Cigarettes Per Day: 200.0 Second Hand Smoke Exposure: No service: No Meds Allergies Allergy/AdvReac Type Severity Reaction Status Date / Time amoxicillin Allergy Intermediate Itching Verified 10/22/24 19:26 Active Medications: Current Medications Acetaminophen (Acetaminophen 325 Mg Tablet) 650 mg PO Q6H PRN PRN Reason: Pain, Mild 1-3,fever,headache Melatonin (Melatonin 3 Mg Tablet) 6 mg PO BEDTIME PRN PRN Reason: Insomnia Last Admin: 10/23/24 01:25 Dose: 6 mg Morphine Sulfate (Morphine Sulfate 4 Mg/Ml Cartridge) 3 mg IVPUSH Q4H PRN; Protocol PRN Reason: Pain, Severe (Pain Scale 7-10) Last Admin: 10/23/24 04:55 Dose: 3 mg Ondansetron HCl (Ondansetron Hcl 4 Mg/2 Ml Vial) 4 mg IVPUSH Q8H PRN PRN Reason: Nausea and Vomiting Sodium Chloride (0.9 % Sodium Chloride Flush 3 Ml Syringe) [facility] Medications ?Medication ?Instructions ?Recorded ?Confirmed ?Last Taken ?Type aspirin 81 mg tablet,delayed 81 mg PO DAILY 06/04/22 10/25/24 10/22/24 History release lisinopril 5 mg tablet 1 tab PO DAILY 06/04/22 10/25/24 10/22/24 History simvastatin 40 mg tablet 1 tab PO DAILY 06/04/22 10/25/24 10/22/24 History Physical Exam Vital Signs: Vital Signs: Last Vital Signs Temp 98 F 10/22/24 19:25 Pulse 69 10/23/24 06:41 Resp 16 10/23/24 06:41 BP 115/54 L 10/23/24 06:41 Pulse Ox 93 10/23/24 06:41 O2 Del Method Room Air 10/23/24 06:41 BMI result Body Mass Index 30.7 Const: General: comfortable and no acute distress Orientation/consciousness: patient oriented x3 Neck: Neck: Yes no lymphadenopathy Resp: Auscultation: clear to auscultation bilaterally Cardio: Rhythm: regular rhythm GI: Other: Right groin with tenderness, hernia appears reducible although with some tenderness to deep palpation Palpation (GI): Soft to palpation, nontender and no guarding Neuro: General: patient oriented x3 Results Results Labs: Short CBC 10/22/24 Range/Units 19:35 WBC 9.1 (4.8-10.8) X10*3/uL Hgb 13.3 (12.0-16.0) g/dl Hct 38.7 (37.0-47.0) % Plt Count 285 (160-400) X10*3/uL BMP 10/22/24 19:35 Sodium 142 Potassium 4.3 Chloride 105 Carbon Dioxide 27 BUN 12 Creatinine 0.69 Calcium 9.9 Urine 10/22/24 Range/Units 22:29 Urine Color Yellow Urine Appearance Clear Urine pH 6.5 (5.0-9.0) Ur Specific [place] <= 1.005 (1.005-1.025) Urine Protein Negative (Neg-Trace) mg/dL Urine Glucose (UA) Negative (Negative) mg/dL Assessment and Plan (1) Right inguinal hernia: Status: Resolved [age] year female with a known right inguinal hernia, here for right groin pain. I have reviewed her CAT scan and this does show a right groin hernia hernia, possibly femoral, bowel loops. However, clinically she is not obstructed. The hernia appears partially reducible now although with some tenderness She says that she has had this pain on and off for over 5 weeks now and wants to have this repaired. I had a long discussion with her about the procedure of repair of right inguinal hernia or right femoral hernia with mesh. I reviewed the risks including but not limited to bleeding, infections, bowel injury, recurrence, postop pain, inherent risks of anesthesia, as well as the benefits and alternatives. I also explained to her what to expect postoperatively She understands and says she wants to proceed We will put her on the add on schedule for today. I also have discussed the above with her daughter Martita [phone]. Quality Stroke Does the patient have a stroke diagnosis?: No VTE Prior VTE?: No VTE Risk Level:: Surgical - low VTE Device Contraindication: N/A - Device Ordered VTE Drug Contraindication: N/A - Med Ordered Procedures Date of Service Date of Service: 10/26/24
[2024-10-23] MEDS: Lactated Ringers 1,000 ML 100 ML IVCONT ×2 (07:53→16:30)
--- NOTE | 2024-10-23 08:17 | PC.NURSE ---
report given to surgery, plan for surgery at approx 1230 today. remains NPO
--- NOTE | 2024-10-23 10:32 | MHC.CM.PN ---
CM met with Patient at bedside, in the ED, and addressed IMM with her (original was given to Patient and a copy has been placed on the chart). Patient lives alone in a house and is functionally independent. Home self care is the goal and CM has initiated and will follow for dc planning. PCP is Dr. Lilia Jane and HCP is Daughter/Martita, who will transport to home at time of dc.
--- NOTE | 2024-10-23 10:39 | PHA.MEDREC ---
Pharmacy Consult ? Medication Reconciliation Pharmacy has completed the medication reconciliation. Spoke to patient to confirm medication list. Per patient, she is not using estradiol vaginal cream anymore and hasn't started the ReadiCat yet (procedure is on 11/03/24). Last dose of medication was yesterday morning 10/22/24.
--- NOTE | 2024-10-23 13:04 | PC.NURSE ---
patient #20 IV left AC leaking, removed and intact. 2 IV attempts made for new IV by this RN, unsuccessful. New #20 IV placed to left hand by Danelle Olguin RN. patient tolerated well.
[2024-10-23] MEDS: Lactated Ringers 1,000 ML 80 ML IVCONT (13:07)
--- NOTE | 2024-10-23 13:37 | P.CONAN_ITS ---
[facility] Active Problems Active Problems: All Active Problems Right inguinal hernia (Acute) Bowel obstruction (Acute) Abdominal mass (Acute) Femoral hernia (Acute) Fatigue (Acute) HTN (hypertension) (Acute) Elevated cholesterol (Acute) Heart murmur on physical examination (Acute) Tobacco user (Acute) Hematuria (Acute) Family history of bladder cancer (Acute) UTI (urinary tract infection) (Acute) Cough (Acute) Past Medical History Medical History Right inguinal hernia Anxiety Low vitamin D level Degenerative joint disease Elevated cholesterol HTN (hypertension) Functional capacity: independent ambulation Family History Family history of problems with anesthesia: No Surgical History Surgical History S/P hip replacement H/O colonoscopy (~06/05/22) History of Problems with Anesthesia: No Social History Social History Household Members: Other Housing: House Are you a primary skin care therapist to a significant other at home: No Do you presently have visiting nurse or other home services: No Patient Tobacco Use Status: Current everyday Tobacco user Tobacco use type: Cigarette Cigarette Packs Per Day: 0.5 Cigarettes Per Day: 10.0 Smoked in Last 30 Days: No Second Hand Smoke Exposure: No Use of substances other than those prescribed or required for medical reasons: No Have you been hit, kicked, punched, or otherwise hurt by someone within the past year? If so, by whom?: No Are you DNR?: No Advance Directives: No Advance Directives Information Provided: Yes Advance Directives on File: No Nutrition Risks: No Nutritional Risk Patient : No : No Poor oral hygiene: No service: No Meds Allergies Allergy/AdvReac Type Severity Reaction Status Date / Time amoxicillin Allergy Intermediate Itching Verified 10/22/24 19:26 Active Medications: Current Medications Acetaminophen (Acetaminophen 325 Mg Tablet) 650 mg PO Q6H PRN PRN Reason: Pain, Mild 1-3,fever,headache Acetaminophen (Acetaminophen 325 Mg Tablet) 650 mg PO Q6H PRN PRN Reason: Pain, Mild 1-3,fever,headache Heparin Sodium (Porcine) (Heparin Sodium,Porcine 5,000 Unit/Ml Vial) 5,000 unit SUBCUT Q8H JG Lactated Ringer's (Lr) 1,000 mls @ 100 mls/hr IVCONT .Q10H [facility] Last Admin: 10/23/24 07:53 Dose: 100 mls/hr Lactated Ringer's (Lr) 1,000 mls @ 80 mls/hr IVCONT .[id number] [facility] Last Admin: 10/23/24 13:07 Dose: 80 mls/hr Melatonin (Melatonin 3 Mg Tablet) 6 mg PO BEDTIME PRN PRN Reason: Insomnia Last Admin: 10/23/24 01:25 Dose: 6 mg Melatonin (Melatonin 3 Mg Tablet) 6 mg PO BEDTIME PRN PRN Reason: Insomnia Morphine Sulfate (Morphine Sulfate 4 Mg/Ml Cartridge) 3 mg IVPUSH Q4H PRN; Protocol PRN Reason: Pain, Severe (Pain Scale 7-10) Last Admin: 10/23/24 04:55 Dose: 3 mg Ondansetron HCl (Ondansetron Hcl 4 Mg/2 Ml Vial) 4 mg IVPUSH Q8H PRN PRN Reason: Nausea and Vomiting Sodium Chloride (0.9 % Sodium Chloride Flush 3 Ml Syringe) 3 ml IVFLUSH [facility] Last Admin: 10/23/24 07:54 Dose: Not Given Sodium Chloride (0.9 % Sodium Chloride Flush 3 Ml Syringe) 3 ml IVFLUSH [facility] Last Admin: 10/23/24 07:54 Dose: Not Given Home Medications ?Medication ?Instructions ?Recorded ?Confirmed ?Last Taken ?Type aspirin 81 mg tablet,delayed 81 mg PO DAILY 06/04/22 10/23/24 10/22/24 History release lisinopril 5 mg tablet 1 tab PO DAILY 06/04/22 10/23/24 10/22/24 History simvastatin 40 mg tablet 1 tab PO DAILY 06/04/22 10/23/24 10/22/24 History Exam Exam Date and Time: 10/23/2024 Height,Weight and Vital Signs: Height 5 ft 5 in Weight 83.8 kg Last Vital Signs Temp 98.4 F 10/23/24 13:01 Pulse 75 10/23/24 13:01 Resp 16 10/23/24 13:01 BP 140/73 H 10/23/24 13:01 Pulse Ox 94 10/23/24 13:01 O2 Del Method Room Air 10/23/24 13:01 Pertinent Lab Results Pertinent Lab Results: Laboratory Tests 10/22/24 10/22/24 19:35 22:29 WBC 9.1 RBC 4.17 L Hgb 13.3 Hct 38.7 MCV 92.8 MCH 31.9 MCHC 34.4 RDW 11.6 Plt Count 285 MPV 11.1 Immature Gran % (Auto) 0.1 Neut % (Auto) 65.6 Lymph % (Auto) 23.3 [place] % (Auto) 7.7 Eos % (Auto) 2.4 Baso % (Auto) 0.9 Lymph # (Auto) 2.1 [place] # (Auto) 0.7 Eos # (Auto) 0.2 Baso # (Auto) 0.1 Abs Immat Gran (auto) 0.01 Absolute Neuts (auto) 6.0 Absolute Nucleated RBC 0.000 Nucleated RBC % (auto) 0.0 Sodium 142 Potassium 4.3 Chloride 105 Carbon Dioxide 27 Anion Gap 14 BUN 12 Creatinine 0.69 Estim Creat Clear Calc 76.4 Estimated GFR > 60 Random Glucose 107 Calcium 9.9 Urine Color Yellow Urine Appearance Clear Urine pH 6.5 Ur Specific [place] <= 1.005 Urine Protein Negative Urine Glucose (UA) Negative Urine Ketones Negative Urine Blood Negative Urine Nitrite Negative Ur Leukocyte Esterase Negative Airway Heart: rrr Lungs: cta Assessment and Plan Final Anesthetic Review Family History of Problems with Anesthesia: No History of Problems with Anesthesia: No ASA Class: III Final Preanesthetic Review: No Changes in Pt Med Stat, Meds/Allgs Chart Reviewed, Consent Obtained/Reviewed and Anes Risks/Benef Reviewed Patient Risk: Intermediate Procedure Risk: Low Anesthetic Plan Anesthetic Plan: GA Disposition: Standard PACU
[2024-10-23] MEDS: ceFAZolin Sodium/Dextrose,Iso 2 GM/50 ML PIGGYBACK IV (14:10)
--- NOTE | 2024-10-23 14:46 | P.OP_ITS ---
Operative Note Operative Note Date of Service: 10/23/24 Narrative: Preop diagnosis: Right inguinal hernia, with bowel loops Postop diagnosis: Right inguinal hernia, indirect, bowel loops reduced spontaneously with anesthesia; no hemorrhoidal hernia noted Procedure: Repair of right inguinal hernia mesh Surgeon: Adrian Raman MD assistant customer service manager: TASH Ledezma The patient is a 74-year-old female with known right inguinal hernia for several weeks now, who came to the ER last night because of acute pain. Her CAT scan showed bowel loops with a right inguinal hernia. Your pain and tenderness, she wanted to proceed with repair. She understood the technique of repair with me sh. She was aware of the risks, benefits, and alternatives. She was brought to the operating room placed supine under general anesthesia via endotracheal tube. The abdomen especially in the right groin was prepped and draped usual sterile fashion. A surgical time-out was done. The patient received preop prophylactic IV antibiotics I infiltrated my planned line of incision with lidocaine 1%. I made a short incision in the skin along an imaginary line from the anterior superior iliac spine to the pubic ramus with a blade 15. This was carried down with electrocautery through the full-thickness of the skin and subcutaneous fat Please note that the patient had a very large amount of thick subcutaneous fat in view of her body habitus I dissected the thick subcutaneous fat down to the external oblique aponeurosis. I bluntly dissected the aponeurosis and expose the external oblique. There was note of a large sac protruding through the external ring. I also explored the area below the inguinal ligament to make sure that there was no femoral hernia. There were no hernias below the inguinal ligament I therefore I made an incision on the external oblique aponeurosis overlying the canal with a blade 15. This extended inferomedially to connect with the externally using open tip pair of scissors. I applied hemostasis on the divided edges of the aponeurosis. I dissected the underside of the aponeurosis with my index finger to create space for the mesh I also expose the entire large hernia sac. At this point, the sac appeared empty although there was note of some fluid and fat. I dissected the sac to define this all the way to the internal ring. By doing so was able to expose a very thin ligament and this was divided with electrocautery. This allowed me to carefully dissect the sac down to the internal ring. This was reduced completely. Again this was a very large sac but this was empty except for fluid and fat I reduced the hernia and its contents completely through the internal ring. This was therefore an indirect hernia. I reinforced the large internal ring with a large size Prolene plug. The plug was secured with Prolene 2 sutures to the shelving edge of the inguinal meant laterally and the pubic ramus inferomedially as well as the internal oblique medially using the inner leaves of the plug. I then reinforced the floor of the canal with a flat Prolene mesh. The mesh was secured to the pubic ramus inferomedially, the shelving edge of the inguinal meant laterally, the internal oblique superiorly with multiple Prolene 2 sutures The mesh appeared flat and well secured. I then closed the external oblique aponeurosis with a running Polysorb 2-0 stitch to re-create the external ring I irrigated prior to this. Hemostasis had been confirmed I then reapposed the thick subcutaneous fat with multiple Polysorb 3-0 simple interrupted sutures. Skin closure was achieved with Polysorb 4-0 subcuticular running sutures. The area was infiltrated with Marcaine 0.5% for postop analgesia. Dressings were applied. The procedure was completed The patient tolerated procedure well. No immediate complications. Initial and final counts of sponges and instruments were correct. Estimated blood loss was less than 25 cc The patient was extubated without difficulty and transferred to recovery room with stable vital signs.
[2024-10-23] MEDS: ondansetron HCL 4 MG/2 ML VIAL IVPUSH ×2 (15:22→16:21)
[2024-10-23] MEDS: Haloperidol Lactate 5 MG/ML VIAL 1 MG IVPUSH (15:39)
--- NOTE | 2024-10-23 16:08 | PM.EVENT ---
Event Note Date of Service: 10/24/24 Event Note: Seen postop Underwent repair of right inguinal hernia with mesh earlier No bowel loops seen within hernia She appears to have good pain control Abdomen is soft Stable vital signs Pain management Okay to have diet Daughter Martita updated Time Spent With Patient Time: Total time managing care of this patient today ____ minutes.
[2024-10-23] MEDS: oxyCODONE HCl Immed Release 5 MG TABLET PO ×2 (16:26→22:22)
[2024-10-23] MEDS: Acetaminophen 325 MG TABLET 650 MG PO (22:22)
[2024-10-24 03:16] VITALS: BP 127/61; PULSE 79; RESP 16; TEMP 36; O2SAT 93
[2024-10-24] MEDS: oxyCODONE HCl Immed Release 5 MG TABLET PO (06:19)
[2024-10-24] MEDS: Acetaminophen 325 MG TABLET 650 MG PO (06:20)
--- NOTE | 2024-10-24 07:06 | PM.PNGS ---
Subjective Subjective Date of Service: 10/24/24 <[facility] Last Filed: 10/24/24 07:23> 10/24/24 <Robe Ledezma PA-C - Last Filed: 10/24/24 08:02> Interval history: Patient is a 74 year old female s/p hernia repair who's doing well overall. She states she received oxycodone which relieved her pain at the moment. Prior to the pain medication, she reports feeling moderate pain only around the incision site. She's tolerating food well and has been up and out of bed. She states she hasn't had a bowel movement yet but is passing flatus. She denies any fever, chills, nausea, vomiting, chest pain or shortness of breath. <[facility] Filed: 10/24/24 07:23> Physical Exam Vital Signs: Vital Signs: Last Vital Signs Temp 96.8 F 10/24/24 03:16 Pulse 79 10/24/24 03:16 Resp 16 10/24/24 03:16 BP 127/61 10/24/24 03:16 Pulse Ox 93 10/24/24 03:16 O2 Del Method Room Air 10/24/24 03:16 O2 Flow Rate 2 10/23/24 15:57 BMI result Body Mass Index 30.7 <[facility] Filed: 10/24/24 07:23> Const: General: healthy appearing and no acute distress <[facility] Last Filed: 10/24/24 07:23> Orientation/consciousness: patient oriented x3 <[facility] Filed: 10/24/24 07:23> Resp: Effort & Inspection: normal respiratory effort <[facility] Last Filed: 10/24/24 07:23> Auscultation: clear to auscultation bilaterally <[facility] Filed: 10/24/24 07:23> Cardio: Rate: regular rate <[facility] Filed: 10/24/24 07:23> Rhythm: regular rhythm <[facility] Filed: 10/24/24 07:23> Heart sounds: S1 normal heart sound present and S2 normal heart sound present <[facility] Last Filed: 10/24/24 07:23> GI: Inspection: No distended <Robe Ledezma PA-C - Last Filed: 10/24/24 08:02> Palpation (GI): Soft to palpation and Tenderness to palpation present (GI) (Tenderness around the incision site) <[facility] Last Filed: 10/24/24 07:23> Palpation (GI): no guarding and not rigid <Robe Ledezma PA-C - Last Filed: 10/24/24 08:02> Skin: Other: Dressing over the incision site is clean, dry and intact, with no signs of infection. <[facility] Last Filed: 10/24/24 07:23> Neuro: General: patient oriented x3 <[facility] Last Filed: 10/24/24 07:23> Objective Data Active Medications Acetaminophen (Acetaminophen 325 Mg Tablet) 650 mg PO Q6H PRN PRN Reason: Pain, Mild 1-3,fever,headache Last Admin: 10/24/24 06:20 Dose: 650 mg Documented By: ALY Acetaminophen (Acetaminophen 325 Mg Tablet) 650 mg PO Q6H PRN PRN Reason: Pain, Mild 1-3,fever,headache Aspirin (Aspirin Enteric Coated 81 Mg Tablet.Dr) 81 mg PO DAILY [facility] Atorvastatin Calcium (Atorvastatin Calcium 20 Mg Tablet) 20 mg PO DAILY [facility] Bupropion HCl (Bupropion Hcl Xl 300 Mg Tab.Er.24h) 300 mg PO DAILY [facility] Heparin Sodium (Porcine) (Heparin Sodium,Porcine 5,000 Unit/Ml Vial) 5,000 unit SUBCUT Q8H [facility] Lactated Ringer's (Lr) 1,000 mls @ 60 mls/hr IVCONT .[id number] [facility] Last Admin: 10/23/24 16:30 Dose: 100 mls/hr Documented By: JHONNY Ibuprofen (Ibuprofen 600 Mg Tablet) 600 mg PO Q6H PRN PRN Reason: Pain, Moderate(Pain Scale 4-6) Lisinopril (Lisinopril 5 Mg Tablet) 5 mg PO DAILY [facility]; Protocol Melatonin (Melatonin 3 Mg Tablet) 6 mg PO BEDTIME PRN PRN Reason: Insomnia Last Admin: 10/23/24 01:25 Dose: 6 mg Documented By: MARIO Melatonin (Melatonin 3 Mg Tablet) 6 mg PO BEDTIME PRN PRN Reason: Insomnia Morphine Sulfate (Morphine Sulfate 4 Mg/Ml Cartridge) 3 mg IVPUSH Q4H PRN; Protocol PRN Reason: Pain, Severe (Pain Scale 7-10) Last Admin: 10/23/24 04:55 Dose: 3 mg Documented By: MARIO Naloxone HCl (Naloxone Hcl 0.4 Mg/Ml Vial) 0.04 mg IVPUSH Q5M PRN PRN Reason: Excessive sedation or RR < 8 Naloxone HCl (Naloxone Hcl 0.4 Mg/Ml Vial) 0.04 mg IVPUSH Q5M PRN PRN Reason: Excessive sedation or RR < 8 Naloxone HCl (Naloxone Hcl 0.4 Mg/Ml Vial) 0.04 mg IVPUSH Q5M PRN PRN Reason: Excessive sedation or RR < 8 Ondansetron HCl (Ondansetron Hcl 4 Mg/2 Ml Vial) 4 mg IVPUSH Q8H PRN PRN Reason: Nausea and Vomiting Last Admin: 10/23/24 16:21 Dose: 4 mg Documented By: JHONNY Oxycodone HCl (Oxycodone Hcl Immed Release 5 Mg Tablet) 5 mg PO Q4H PRN PRN Reason: Pain, Severe (Pain Scale 7-10) Last Admin: 10/24/24 06:19 Dose: 5 mg Documented By: ALY Sodium Chloride (0.9 % Sodium Chloride Flush 3 Ml Syringe) 3 ml IVFLUSH [facility] Last Admin: 10/23/24 20:29 Dose: Not Given Documented By: ALY Non-Admin Reason: IV Running Sodium Chloride (0.9 % Sodium Chloride Flush 3 Ml Syringe) 3 ml IVFLUSH [facility] Last Admin: 10/23/24 20:29 Dose: Not Given Documented By: ALY Non-Admin Reason: IV Running <[facility] - Last Filed: 10/24/24 07:23> Labs CBC & Chem 7: 10/22/24 19:35 10/22/24 19:35 <[facility] - Last Filed: 10/24/24 07:23> Procedures Date of Service Date of Service: 10/24/24 [facility] Last Filed: 10/24/24 07:23> 10/24/24 <Robe Ledezma PA-C - Last Filed: 10/24/24 08:02> Progress Note: A&P Assessment and plan (1) Right inguinal hernia: Status: Acute [facility] Last Filed: 10/24/24 07:23> (2) S/P right inguinal hernia repair: Status: Acute [facility] Last Filed: 10/24/24 07:23> Assessment and Plan: Patient is a 74 year old female s/p hernia repair who's doing well overall. She states she has moderate pain limited to the incision site, but is not currently in pain as she has recently taken Oxycodone. Her abdomen feels soft, with tenderness localized to the incision site. The incision site is clean, dry and intact, with no signs of infection. She's tolerating food well and has been up and out of bed. She denies any fever, chills, nausea, vomiting, chest pain or shortness of breath. Patient is clinically stable and ready for discharge. <Nena Corea Last Filed: 10/24/24 07:23> Patient is a 74 year old female POD1 s/p hernia repair who's doing well overall. She states she has moderate pain limited to the incision site, but is not currently in pain as she has recently taken Oxycodone. Her abdomen feels soft, with tenderness localized to the incision site. The incision site is clean, dry and intact, with no signs of infection. She's tolerating food well and has been up and out of bed. She denies any fever, chills, nausea, vomiting, chest pain or shortness of breath. Patient is clinically stable and ready for discharge. Patient seen and evaluated independently, I agree with the above assesment. Patient stable, abdominal exam is soft and benign aside from incisional site pain. Patient will be d/c this morning. <Robe Ledezma PA-C - Last Filed: 10/24/24 08:02> Time Spent With Patient Time: Total time managing care of this patient today ____ minutes. <Nena Anmol - Last Filed: 10/24/24 07:23> Quality Stroke Does the patient have a stroke diagnosis?: No <Robe Ledezma PA-C - Last Filed: 10/24/24 08:02> VTE Prior VTE?: No <Robe Ledezma PA-C - Last Filed: 10/24/24 08:02> VTE Risk Level:: Surgical - low <[facility] - Last Filed: 10/24/24 07:23> VTE Device Contraindication: N/A - Device Ordered <[facility] - Last Filed: 10/24/24 07:23> VTE Drug Contraindication: N/A - Med Ordered <[facility] - Last Filed: 10/24/24 07:23>
[2024-10-24 07:39] VITALS: BP 140/65; PULSE 79; RESP 18; TEMP 36.2; O2SAT 93
[2024-10-24] MEDS: Aspirin Enteric Coated 81 MG TABLET.DR PO (07:59)
[2024-10-24] MEDS: lisinopriL 5 MG TABLET PO (08:00)
[2024-10-24] MEDS: Atorvastatin Calcium 20 MG TABLET PO (08:00)
[2024-10-24] MEDS: buPROPion HCl XL 300 MG TAB.ER.24H PO (08:00)
[2024-10-24] MEDS: 0.9 % Sodium Chloride Flush 3 ML SYRINGE IVFLUSH (08:01)
--- NOTE | 2024-10-24 08:34 | MHC.CM.PN ---
DP: PT HAS BEEN MEDICALLY CLEARED FOR DC HOME, NO SERVICES. DAUGHTER WILL TRANSPORT HOME
--- NOTE | 2024-10-24 08:35 | HO.POSTANES ---
Post Anesthesia Evaluation Post Anesthesia Evaluation Date of Service: 10/24/24 Vital Signs: Vital Signs Temp Pulse Resp BP Pulse Ox O2 Del Method 10/24/24 07:39 97.1 F 79 18 140/65 H 93 Room Air 10/24/24 03:16 96.8 F 79 16 127/61 93 Room Air Anesthesia: General Mental Status: Awake Pain Control: Satisfactory Nausea/Vomiting: None Hydration: Adequate Anesthesia-Related Issues: No Anes. Related Issues
--- NOTE | 2024-10-24 09:12 | P.DS_ITS ---
DS: Providers Provider Date of Service: 10/24/24 Date of admission: 10/23/24 01:10 Date of discharge: 10/24/24 Primary care physician: Lilia Jane MD Admitting clinician: Adrian Raman Attending physician on discharge: Adrian Raman DS: Diagnosis Discharge Diagnosis (1) Right inguinal hernia: Status: Acute (2) S/P right inguinal hernia repair: Status: Acute DS: Summary Hospital Course Hospital Course: Admission HPI: Rosemarie Butcher is a 74 year old female here in the ED for right groin pain. She says that she has had this lump on the right groin for about 6 weeks now. She has seen her primary care physician previously for this. She says she was supposed to have a CAT scan as well as a referral to a surgeon for a right inguinal hernia. However, she says that she has not had this done yet so far. She says that she would often have periodic burning pain in the right groin which would subside after a few minutes. However, yesterday starting around 01:00 in the afternoon, she said that she had another episode which persisted. She therefore was brought to the ER by her daughter last night. She denied any nausea or vomiting. She is passing flatus. She says that her pain had improved significantly with morphine. She says that currently her pain is minimal although she admits to having received morphine a few hours ago. She says she is not nauseous at all. Hospital course: Patient was brought to the OR on 10/23/24 for right inguinal hernia repair with mesh. Patient tolerated the procedure well and was transferred to the [facility] floor for postoperative management. Diet was advanced after the procedure. Patient was experiencing appropriate post operative pain, well controlled with oral medications. On POD1 patient was stable, pain is well controlled. She is tolerating diet, and began passing flatus. She is ambulating within the room. [place] ready to go home. Abdominal exam was soft and benign. Incision site is cl patti and dry. Status at Discharge Functional status at discharge: independent ambulation Overall status at discharge: patient is progressing back to baseline Time Attestation Discharge Coordination Time (in mins): 30 Quality: Safe Use of Opioids Does Pt have an Active Cancer Diagnosis on the Problem List?: No Quality: Stroke Does the patient have a stroke diagnosis?: No Physical Exam Vital Signs: Vital Signs: Last Vital Signs Temp 97.1 F 10/24/24 07:39 Pulse 79 10/24/24 07:39 Resp 18 10/24/24 07:39 BP 140/65 H 10/24/24 07:39 Pulse Ox 93 10/24/24 07:39 O2 Del Method Room Air 10/24/24 07:39 O2 Flow Rate 2 10/23/24 15:57 BMI result Body Mass Index 30.7 Const: General: comfortable and no acute distress Orientation/consciousness: patient oriented x3 Resp: Effort & Inspection: normal respiratory effort and able to speak in complete sentences GI: Other: Incision site dressing in place, clean and dry Inspection: No distended Palpation (GI): Soft to palpation, Tenderness to palpation present (GI) (Incisional), no guarding and not rigid Neuro: General: patient oriented x3 Extrem: General: Yes normal to inspection and Yes full ROM Discharge Plan Discharge Anticipated Discharge Date/Time: 10/24/24 09:34 Patient Disposition: Home, Self-Care Discharge Diagnosis: Right Inguinal hernia with mesh Referrals: Lilia Jane MD [Primary Care Provider] - 1 Week Discharge Medications: New docusate sodium [Colace] 100 mg capsule 100 mg PO BID Qty: 30 0RF oxycodone 5 mg tablet 5 mg PO Q6H PRN (Reason: pain) Qty: 16 0RF Rx Instructions: Partial Fill upon patient request. Continued aspirin 81 mg Tablet,Delayed Release (Dr/Ec) 81 mg PO DAILY simvastatin 40 mg tablet 1 tab PO DAILY lisinopril 5 mg tablet 1 tab PO DAILY bupropion HCl 300 mg tablet extended release 24 hr 300 mg PO DAILY Qty: 90 3RF Discharge Orders: Discharge Order (Routine); Ordered 10/24/24 Ordered By: Robe Ledezma Diet: Advance to usual diet Activity on Discharge: No heavy lifting Stand Alone Forms: Patient Portal Discharge page Print Language: Uzbek Activity Restrictions/Additional Instructions: If your incision site is sore, you may apply ice to the area for short periods of time (no more than 20 minutes at a time, followed by 20 minutes off). You were prescribed oxycodone to assist with pain management as needed. You can additionally use OTC ibuprofen or acetaminophen as needed for pain. You can remove the dressings at home, they do not need to be redressed. Steri strips can remain in place and will likely fall on their own or in the shower. No heavy lifting >15-20 pounds No strenuous activity. Do not use creams, lotion, ointment on the incision sites You will follow up with Dr. Raman in the office in 2 week, you can call the office to schedule the appointment Please reach out to the office or be seen at the emergency department if you develop: -Fever >101.5 -Increasing pain or swelling of the area -Increased bleeding from the incision site or the incision begins to separate -If you are concerned for incision site infection such as redness, warmth, discharge. Some yellow/pink tinged discharge is normal -You develop nausea or vomiting Care Plan Goals: Return to baseline level of health Health Concerns: left inguinal hernia Post op Pain Plan of Treatment: s/p right inguinal hernia repair with mesh Follow up in the office in 2 weeks Assessment: Doing well post op
== END 2024-10-24 12:11 | disposition home or self-care (01) | DRG 352 ==
LOC: HO.ED 10-23 01:23 → HO.EDOVER 10-23 01:26 → HO.SSSA 10-23 12:51 → HO.S3 10-23 15:19
PROVIDERS: Nurse Practitioner Family; Admitting Provider Surgery; Emergency Provider Internal Medicine; PCP Internal Medicine; Visit Provider Surgery
PROC: 0YU50JZ Supplement Right Inguinal Region with Synthetic Substitute, Open Approach (ICD-10-PCS; CPT 49505; principal; 2024-10-23 13:30)
DX: K40.90 Unilateral inguinal hernia, without obstruction or gangrene, not specified as recurrent (principal); I10 Essential (primary) hypertension; E78.5 Hyperlipidemia, unspecified; F17.210 Nicotine dependence, cigarettes, uncomplicated; Z71.6 Tobacco abuse counseling; Z79.82 Long term (current) use of aspirin; Z79.899 Other long term (current) drug therapy
CPT/HCPCS: 49505; 36415; 74177; 80048; 81003; 85025; 99221; 99285; C1781; J0330; J0690; J1630; J2003; J2250; J2270; J2405; J2704; J2795; J3010; J7120; Q9967

== ENCOUNTER → 2024-10-22 23:10 | Outpatient (BNV) | payer MEDICARE, SELFPAY | PROVIDERS: Emergency Provider Internal Medicine; PCP Internal Medicine; Visit Provider General Practice | DX: K40.90 Unilateral inguinal hernia, without obstruction or gangrene, not specified as recurrent (principal) | CPT/HCPCS: 74177 ==

== ENCOUNTER → 2024-10-23 01:10 | Outpatient (BNV) | payer MEDICARE, SELFPAY | PROVIDERS: Admitting Provider Surgery; Emergency Provider Internal Medicine; PCP Internal Medicine | DX: K40.90 Unilateral inguinal hernia, without obstruction or gangrene, not specified as recurrent (principal) | CPT/HCPCS: 99222 ==

== ENCOUNTER 2024-10-30 12:59 | Outpatient (AMB) | payer MEDICARE, SELFPAY ==
--- NOTE | 2024-10-30 13:01 | MHC.OFFVIS ---
Vital Signs 10/30/24 13:06 Height 5 ft 5 in Weight 185 lb BMI 30.8 BP 142/68 H Blood Pressure Location Rt brachial Position Sitting Pulse 81 Intake Visit Reasons: s/p hernia surgery 10/23 Intake Note: Patient here s/p Repair of right inguinal hernia mesh. Reports incision healing well. Patient c/o: steri strips fell off. Only took rx pain meds for the first three days. Surgery: 10-23-2024 [employer] Supervisor Required: No Accompanied by: Self / Same As Patient Allergies amoxicillin Allergy (Intermediate, Verified 10/30/24 13:01) Itching HPI HPI s/p hernia surgery 10/23: Details: She had undergone repair of a right inguinal hernia with mesh as an inpatient last October 23, 2024. She tolerated procedure well. She says that she still has pain but this has been improving every day. She denies GI complaints. [facility] Medical History Right inguinal hernia Anxiety Low vitamin D level Degenerative joint disease Elevated cholesterol HTN (hypertension) Surgical History S/P hip replacement H/O colonoscopy (~06/05/22) Social History Household Members: Other Housing: House Are you a primary medical care manager to a significant other at home: No Do you presently have visiting nurse or other home services: No Patient Tobacco Use Status: Current everyday Tobacco user Tobacco use type: Cigarette Cigarette Packs Per Day: 10 Cigarettes Per Day: 200.0 Second Hand Smoke Exposure: No service: No Review of Systems Const Denies chills and Denies fever(s) Card Denies chest pain Resp Denies chest congestion GI Denies abdominal pain Physical Exam Vital Signs: Last Vital Signs Pulse 81 10/30/24 13:06 BP 142/68 H 10/30/24 13:06 BMI result Body Mass Index 30.8 Const General: comfortable and no acute distress Resp Effort & Inspection: normal respiratory effort GI Other: Incision well healed, no signs of infection, repair site intact Palpation (GI): Soft to palpation and not firm Assessment & Plan Assessment & Plan (1) S/P right inguinal hernia repair: Code(s): Z98.890 - Other specified postprocedural states; Z87.19 - Personal history of other diseases of the digestive system Category: Surgical Plan: She is doing very well postoperatively. The incisions well healed. The repair site is intact. I advised her to avoid lifting anything more than 20 lb for at least another month. She can otherwise follow up on a p.r.n. basis. Coding Level of Care Code Global (00031) Diagnoses S/P right inguinal hernia repair Z98.890; Z87.19
[2024-10-30 13:06] VITALS: BP 142/68; PULSE 81; BMI 30.8
== END 2024-10-30 13:40 | disposition home or self-care (01) ==
LOC: HO.HGS 13:00
PROVIDERS: PCP Internal Medicine; Visit Provider Surgery
DX: Z09 Encounter for follow-up examination after completed treatment for conditions other than malignant neoplasm (principal); Z87.19 Personal history of other diseases of the digestive system
CPT/HCPCS: 99024

== ENCOUNTER → 2024-10-30 12:59 | Outpatient (BNVA) | payer MEDICARE, SELFPAY | PROVIDERS: PCP Internal Medicine; Visit Provider Surgery | DX: Z09 Encounter for follow-up examination after completed treatment for conditions other than malignant neoplasm (principal); Z87.19 Personal history of other diseases of the digestive system; Z98.890 Other specified postprocedural states | CPT/HCPCS: 99212 ==

== ENCOUNTER 2024-12-27 07:49 | Outpatient (REF) | payer MEDICARE, SELFPAY ==
[2024-12-27] MEDS: iohexoL 350 MG/ML 100 ML INFUS..BTL 85 ML IV (08:58)
[2024-12-27 10:23] LABS: Creatinine POC 0.9 mg/dL (0.5-1.4); GFR POC > 60
== END 2024-12-27 07:50 | disposition home or self-care (01) ==
LOC: HO.CT 07:49
PROVIDERS: PCP Internal Medicine; Visit Provider Nurse Practitioner Family
DX: R31.0 Gross hematuria (principal)
CPT/HCPCS: 74178; 82565; Q9967

== ENCOUNTER → 2024-12-27 07:50 | Outpatient (BNV) | payer MEDICARE, SELFPAY | PROVIDERS: PCP Internal Medicine; Visit Provider Radiology Diagnostic Radiology | DX: N20.0 Calculus of kidney (principal) | CPT/HCPCS: 74178 ==

== ENCOUNTER 2025-01-25 09:15 | Outpatient (AMB) | payer MEDICARE, SELFPAY ==
--- NOTE | 2025-01-25 09:33 | MHC.OFFVIS ---
Intake Visit Reasons: Cysto/CT/Labs Intake Note: Patient presents today for cystoscopy/CT/Labs 01/[address] 10/22 BUN:12/ Creatinine:0.69 Urology Medication:None Blood Thinner:Aspirin Antibiotic Allergies:Amoxicillin Lot #: [id number] Exp:08/03/27 Allergies amoxicillin Allergy (Intermediate, Verified 01/25/25 09:34) Itching Medication List - Last Reconciled 01/25/25 by Shyann Freitas MD aspirin 81 mg PO DAILY bupropion HCl XL 300 mg PO DAILY docusate sodium (Colace) 100 mg PO BID lisinopril 1 tab PO DAILY simvastatin 1 tab PO DAILY HPI Comments Details: 01/25/25--Rosemarie is a 74-year-old female here for office cystoscopy. She was initially seen by the nurse practitioner on 10/04/2024 for microscopic hematuria, she has a longstanding history of nicotine dependence over the last 50 years and reports a family history of bladder cancer. CT urogram was ordered. Urine cytology 10/04/24- for malignant cells. 01/15/25--CT urogram--2 mm calculus within the interpolar region of the right kidney. No stones are seen within the left kidney. No ureteral calculi. No hydronephrosis. Pelvic exam-atrophic vaginal mucosa, no prolapse. After filling the bladder with greater than 150 mL positive leakage with cough and Valsalva. Pelvic muscle strength 2/5 History of Present Illness The patient is a 74-year-old female presenting with microscopic hematuria. She was initially evaluated by a nurse practitioner for this condition. The patient has a long-standing history of nicotine dependence spanning over 50 years. Additionally, there is a family history of bladder cancer, which raises concern for potential hereditary risk factors. A recent CT scan revealed a tiny kidney stone measuring approximately 2 mm. The patient has no prior history of kidney stones, and it is anticipated that the stone may pass spontaneously due to its small size. The patient reports urinary incontinence, which occurs during activities such as walking, coughing, or laughing. She manages this condition by wearing pads and has not sought additional treatment. Results - CT scan: Tiny kidney stone approximately 2 mm - Urine cytology: Normal results Plan 1. Microscopic Hematuria - workup negative for malignancy; cystoscopy findings today no suspicious bladder lesions, prominent vascular markings, nonspecific finding, not clinically significant. 2. Nicotine Dependence - Discuss smoking cessation options with primary care provider, including nicotine patches. 3. Kidney Stone - Monitor with ultrasound in one year to assess for spontaneous passage. 4. Urinary Incontinence - Recommend Kegel exercises to strengthen muscles. - Referral to physical therapy for further management. - discussed therapy- Bulkamid and pamphlet provided 5. History of recurrent UTI/vaginal atrophy - patient received prescription for Estrace cream from nurse practitioner has not started using it, discussed benefits. 10/04/24--Rosemarie is a 74-year-old pleasant female patient of Dr. Belinda Rivers. She has a past medical history of anxiety, degenerative joint disease, hypertension, and hypercholesteremia. In discussion with the patient today she reports following up with her PCP as she experienced a bout of gross hematuria earlier this year when she was on vacation. She reports following up with in urgent care while she was out on vacation and was noted to have a urinary tract infection. She does report a longstanding history of nicotine dependence over the last 50 years. She reports smoking approximately half a pack of cigarettes per day. She also reports a familial history of bladder cancer. She reports her mother was diagnosed with bladder cancer in her 80s. She reports having experienced another urinary tract infection 2 months ago and following up with urgent care services through [facility]. We discussed potential causes of recurrent urinary tract infections as well as gross hematuria. In office urinalysis results reviewed with the patient today. Microscopic hematuria noted. We discussed further workup of gross hematuria in risks and benefits of these interventions. She currently denies any bothersome urinary issues. She denies urinary urgency, urinary frequency, incontinence, nocturia, dysuria, foul smelling urine, changes to urinary stream, flank pain, fever, and or chills. She is happy with her current voiding parameters. She reports episode of gross hematuria has since subsided. We discussed obtaining CT urogram and follow-up with cystoscopy. She is agreeable all questions were answered. She otherwise offers no other issues or concerns at this time. [facility] Medical History Right inguinal hernia Anxiety Low vitamin D level Degenerative joint disease Elevated cholesterol HTN (hypertension) Surgical History S/P hip replacement H/O colonoscopy (~06/05/22) Social History Household Members: Other Housing: House Are you a primary medicare biller to a significant other at home: No Do you presently have visiting nurse or other home services: No Patient Tobacco Use Status: Current everyday Tobacco user Tobacco use type: Cigarette Cigarette Packs Per Day: 10 Cigarettes Per Day: 200.0 Second Hand Smoke Exposure: No service: No Review of Systems Const All systems reviewed & are unremarkable except as noted in HPI and below Reports no additional complaints Eyes Reports no additional complaints ENT Reports no additional complaints Card Reports no additional complaints Resp Reports no additional complaints GI Reports no additional complaints Reports as per HPI Musc Reports no additional complaints Skin/Breast Reports system reviewed and no additional complaints, except as documented Neuro Reports no additional complaints Psych Reports no additional complaints Endo Reports no additional complaints Pancho/Lymph Reports no additional complaints Aller/Immun Reports no additional complaints Office Procedures Cystoscopy Consent Discussed risk and benefit or proposed procedure with the patient. Information consent for procedure given to the patient. Discussed technical aspects, risks, benefits and alternatives in full. Addressed all of the patient's questions and concerns regarding the procedure. The patient demonstrated knowledge and understanding. They wish to proceed with this procedure. Preparation The patient was prepped in the usual manner. A director of group counseling program was present and in the room. Genitalia was prepped with betadine solution in a sterile manner. Lidocaine Jelly 2% was placed into the urethra and 16Fr flexible Olympus cystoscope was inserted into the meatus after adequate lubrication. Procedure Time out per protocol performed. Speculum used as indicated for adequate visualization of urethra, the flexible cystoscope is passed transurethrally: The bladder was inspected in its entirety with utilization retroflexion displaying: Tumor(s): no suspicious bladder lesions visualized Trabeculation: NA Mucosal Erthema: Prominent vasculature Orifices: normal shape and position Urethra: normal Cystoscopy findings: Increased vascular marking, no suspicious bladder lesions visualized [id number] DISPOSABLE SCOPE URO-G FLEXIBLE SCOPE Procedure code (CPT) selection complete Office Meds lidocaine HCl 2 % mucosal jelly in applicator Performing Provider: Shyann Freitas MD [facility] Administered by: Cary Sandhu RN on 01/25/25 09:52 Dose Route Admin Location Dispensed Lot Number Expiration Date NDC Silk Worker 10 mL intra-urethral 20 mL ciprofloxacin HCl 500 mg tablet Performing Provider: Shyann Freitas MD Per[facility] Administered by: Cary Sandhu RN on 01/25/25 09:52 Dose Route Admin Location Dispensed Lot Number Expiration Date NDC Silk Worker 500 mg PO 1 tab phenazopyridine 200 mg tablet Performing Provider: Shyann Freitas MD Per[facility] Administered by: Cary Sandhu RN on 01/25/25 09:52 Dose Route Admin Location Dispensed Lot Number Expiration Date NDC Silk Worker 200 mg PO 1 tab Results Reviewed Results Reviewed: Date of Service: 12/27/24 CLINICAL HISTORY: R31.0 - Gross hematuria CT abdomen and pelvis with and without contrast Comparison: CT/SR - CT ABDOMEN PELVIS W IV CON - 10/22/24 23:00 EDT Findings: CT abdomen: No infiltrates are identified within the lung bases. Degenerative change throughout the visualized portions of the thoracolumbar spine without acute fracture. On the noncontrast portion of the study, there is a 2 mm calculus within the interpolar region of the right kidney. No stones are seen within the left kidney. No ureteral calculi. No hydronephrosis. There is a 7 mm calcified gallstone. No pancreatic calcifications. Dense vascular calcification of the abdominal aorta, renal arteries, and iliac arteries is identified. There is metal artifact from the patient's bilateral hip arthroplasties. Contrast injection was subsequently performed. No focal hepatic lesions. Main portal vein is patent. No gallbladder wall thickening or pericholecystic fluid. Spleen, pancreas, and adrenal glands are unremarkable. Symmetric enhancement of the kidneys. Simple bilateral renal cysts measuring up to 12 mm in size on the right and 8 mm in size in the left. No suspicious renal masses are identified. No perinephric stranding. No dilated small bowel. CT pelvis: Patient has undergone interval right inguinal hernia repair. No recurrent hernia is identified. There is induration within the right inguinal region indicative of postoperative scarring. No dilated large or small bowel. Urinary bladder is mildly distended. No filling defects seen within the ureters. IMPRESSION: 1. Simple renal cysts. No concerning mass lesions within the kidneys. 2. Nonobstructing right renal calculus. 3. Interval right inguinal hernia repair. No findings of bowel obstruction. Assessment & Plan Assessment & Plan (1) Tobacco user: Code(s): Z72.0 - Tobacco use Category: Social Hx (2) Hematuria: Code(s): R31.9 - Hematuria, unspecified Category: Medical Qualifiers: Hematuria type: unspecified type Qualified Code(s): R31.9 - Hematuria, unspecified (3) Family history of bladder cancer: Comment: mom Code(s): Z80.52 - Family history of malignant neoplasm of bladder Category: Medical (4) History of recurrent UTIs: Code(s): Z87.440 - Personal history of urinary (tract) infections Category: Medical (5) Vaginal atrophy: Code(s): N95.2 - Postmenopausal atrophic vaginitis Category: Medical Plan Plan 1. Microscopic Hematuria - workup negative for malignancy; cystoscopy findings today no suspicious bladder lesions 2. Nicotine Dependence - Discuss smoking cessation options with primary care provider, including nicotine patches. 3. Kidney Stone - Monitor with ultrasound in one year to assess for spontaneous passage. 4. Urinary Incontinence - Recommend Kegel exercises to strengthen muscles. - Referral to physical therapy for further management. - discussed therapy- Bulkamid and pamphlet provided 5. History of recurrent UTI/vaginal atrophy - patient received prescription for Estrace cream from nurse practitioner has not started using it, discussed benefits. Orders: Orders AMB Cystoscopy Today R31.9 - Hematuria, unspecified PT Evaluation and Treatment Today N39.3 - Stress incontinence (female) (male) Patient Instructions: The patient had an opportunity to ask questions regarding treatment plan. The patient expressed understanding and agreement with the above treatment plan. The patient is aware they should contact our office by phone for worsening of their current condition or the appearance of new symptoms. Compliance is encouraged with any medications and followup testing that is ordered. It is a privilege to be allowed the opportunity to participate in the urologic care of your patient. If you have any questions or concerns regarding treatment for the above conditions please do not hesitate to contact me. The office telephone contact is [phone]. This note is constructed in part using voice recognition software. While every effort has been made to ensure accuracy furniture painter errors may have been included. Yours sincerely, Shyann Freitas MD Scribe Plan - Not visible on output: Patient was informed and verbally consented to the use of an ambient scribe for clinic note documentation during this visit. Coding Level of Care Code Est Pt Level 4 (44901) Complex EM visit Add On G2211 Diagnoses Tobacco user Z72.0 Hematuria, unspecified type R31.9 Hematuria type: unspecified type Family history of bladder cancer Z80.52 History of recurrent UTIs Z87.440 Vaginal atrophy N95.2 CPT Codes Cystoscopy - CPT: 97421-[id number] ([id number])
== END 2025-01-25 10:41 | disposition home or self-care (01) ==
LOC: HO.HUSH 09:16
PROVIDERS: PCP Internal Medicine; Visit Provider Urology
DX: R31.9 Hematuria, unspecified (principal); Z80.52 Family history of malignant neoplasm of bladder; Z87.440 Personal history of urinary (tract) infections; N30.01 Acute cystitis with hematuria; Z72.0 Tobacco use
CPT/HCPCS: 52000; 99214

== ENCOUNTER → 2025-01-25 09:15 | Outpatient (BNVA) | payer MEDICARE, SELFPAY | PROVIDERS: PCP Internal Medicine; Visit Provider Urology | DX: R31.29 Other microscopic hematuria (principal); N95.2 Postmenopausal atrophic vaginitis; F17.210 Nicotine dependence, cigarettes, uncomplicated; Z71.6 Tobacco abuse counseling; Z87.440 Personal history of urinary (tract) infections; Z80.52 Family history of malignant neoplasm of bladder | CPT/HCPCS: 52000; 81003; 99212 ==

== ENCOUNTER 2025-02-06 11:08 | Outpatient (REF) | payer MEDICARE, SELFPAY | END 2025-02-06 11:09 | disposition home or self-care (01) | LOC: HO.LAB 11:08 | PROVIDERS: PCP Internal Medicine; Visit Provider Physician Assistant | DX: N30.01 Acute cystitis with hematuria (principal) | CPT/HCPCS: 81003; 87086; 87088; 87186; 99212 ==

== ENCOUNTER 2025-02-06 11:08 | Outpatient (AMB) | payer MEDICARE, SELFPAY ==
[2025-02-06 11:12] VITALS: BP 136/80; PULSE 84; TEMP 36.6; O2SAT 99; BMI 30.6
--- NOTE | 2025-02-06 11:12 | AM.OFFWIN_ITS ---
Intake Vital Signs 02/06/25 11:12 Height 5 ft 5 in Weight 184 lb BMI 30.6 BP 136/80 Blood Pressure Location Lt brachial Position Sitting Pulse 84 Pulse Source Pulse Oximeter Temp 97.8 F Temp Source Oral Pulse Oximetry (%) 99 Oxygen Delivery Method Room Air Intake Visit Reasons: ep possible uti Intake Note: pt presents with pain with voiding and urgency Patient Tobacco Use Status: Current everyday Tobacco user Allergies amoxicillin Allergy (Intermediate, Verified 02/06/25 11:20) Itching Do you need a note to return to daycare/school/sports/work: No HPI HPI Comments History of Present Illness Details History - The patient is a 74-year-old female pr esenting with symptoms suggestive of a urinary tract infection. - The symptoms began mildly 2 days ago w orsened yesterday. - The patient reports experiencing urina ry urgency and pain, but denies fever, low back pain, lower abdominal pain, blood in her urine, and has no history of kidney stones - The patient attempted to manage sympto ms with cranberry juice and water. - The patient has a history of urinary t ract infections, with the last episode occurring in August - Previous cultures were contaminated - The patient has a documented allergy t o amoxicillin, characterized by pruritus of the palms following administration. Physical Exam General: Cooperative, healthy appearing, comfortable, no acute distress and well developed Orientation: Patient oriented x3 Limitations: No limitations Head: Normal to inspection Ears: Hearing grossly normal bilaterally Face and sinus: Normal facial exam Neck: Normal visual inspection and Yes full ROM Respiratory: Normal respiratory effort and able to speak in complete sentences. Skin: No rashes or lesions noted Neuro: Patient oriented x3 Review of Systems - Constitutional: Denies fever, reports feeling chilled. - Genitourinary: Reports urinary urgency and dysuria, denies hematuria. - Musculoskeletal: Denies low back pain. - Gastrointestinal: Denies lower abdomin al pain. All systems reviewed and are unremarkable except as noted in HPI PFS Medical History Right inguinal hernia Anxiety Low vitamin D level Degenerative joint disease Elevated cholesterol HTN (hypertension) Surgical History S/P hip replacement H/O colonoscopy (~01/27/23) Social History Household Members: Other Housing: House Are you a primary home day care provider to a significant other at home: No Do you presently have visiting nurse or other home services: No Patient Tobacco Use Status: Current everyday Tobacco user Tobacco use type: Cigarette Cigarette Packs Per Day: 10 Cigarettes Per Day: 200.0 Second Hand Smoke Exposure: No service: No Physical Exam Vital Signs: Last Vital Signs Temp 97.8 F 02/06/25 11:12 Pulse 84 02/06/25 11:12 BP 136/80 02/06/25 11:12 Pulse Ox 99 02/06/25 11:12 Oxygen Delivery Method Room Air 02/06/25 11:12 BMI result Body Mass Index 30.6 Assessment & Plan Assessment & Plan (1) UTI (urinary tract infection): Code(s): N39.0 - Urinary tract infection, site not specified Qualifiers: Urinary tract infection type: acute cystitis Hematuria presence: with hematuria Qualified Code(s): N30.01 - Acute cystitis with hematuria Plan: Plan - Initiate cefuroxime therapy, 250 mg every 12 hours for 5 days, for suspected urinary tract infection. - Monitor for any allergic reactions, particularly pruritus or throat symptoms, due to potential PCN cross-sensitivity with cephalosporins though it is only 2%. - Send urine culture to confirm bacterial etiology and adjust antibiotic therapy if necessary based on culture results. - Advise patient to contact healthcare provider if symptoms worsen or if fever develops. Patient was informed and verbally consented to the use of an ambient scribe for clinic note documentation during this visit. Orders: Orders Urine Culture Today N39.0 - Urinary tract infection, site not specified Medications: New cefuroxime axetil 500 mg PO Q12H 10 tabs 0RF Coding Level of Care Code Est Pt Level 3 (67351) Diagnoses Acute cystitis with hematuria N30.01 Urinary tract infection type: acute cystitis Hematuria presence: with hematuria
== END 2025-02-06 11:37 | disposition home or self-care (01) ==
PROVIDERS: PCP Internal Medicine; Visit Provider Physician Assistant
DX: Z13.9 Encounter for screening, unspecified (principal); N30.01 Acute cystitis with hematuria

== ENCOUNTER 2025-03-23 09:57 | Outpatient (AMB) | payer MEDICARE, SELFPAY ==
--- NOTE | 2025-03-23 10:02 | MHC.PC.OV ---
Vital Signs 03/23/25 10:14 Height 5 ft 4.57 in Weight 83.461 kg BMI 31.0 BP 138/72 Blood Pressure Location Lt brachial Position Sitting Respiration 18 Pulse 76 Pulse Source Pulse Oximeter Temp 97.6 F Temp Source Temporal Artery Scan Pulse Oximetry (%) 97 Oxygen Delivery Method Room Air Intake Visit Reasons: 6 Month F/U - see comments Director Of Regulatory Affairs Required: No Accompanied by: Self / Same As Patient Allergies amoxicillin Allergy (Intermediate, Verified 03/23/25 10:02) Itching Medication List - Last Reconciled 03/23/25 by TASH Drummond aspirin 81 mg PO DAILY bupropion HCl XL 300 mg PO DAILY lisinopril 5 mg PO DAILY 90 days simvastatin 1 tab PO DAILY Tobacco use date assessed: 03/23/25 Fall risk assessment: No Falls in past year Last assessed Fall Risk: 03/23/25 Dental Screening Dental Screen Date: 03/23/25 Did you have a dental visit in the last 12 months?: Yes Did you have a dental problem in the last 6 months where you did not have access to dental care?: No Was dental information given to patient?: Patient has dentist HPI HPI Comments History of Present Illness Details 75-year-old female with history of hypertension, osteoarthritis, recurrent UTI, hyperlipidemia, vaginal atrophy, cigarette smoking presenting to the office today for management of chronic conditions. Last seen by Dr. Jane, 09/2024. Hypertension-on lisinopril 5 mg daily. Blood pressure 138/72. Hyperlipidemia-last LDL 100. On simvastatin Right inguinal hernia-s/p repair with mesh 10/23/2024. Dr. Raman. No ongoing issues. Bowel movements normal, no abdominal pain Generalized anxiety disorder-bupropion 300 mg XL Recurrent UTI/vaginal atrophy/urinary incontinence-following with Dr. Hartmann. Had not started Estrace cream. Pelvic floor therapy/Kegel exercises. Bulkamid being considered Cigarettes smoking- cutting back, now at 3 per day. Was smoking 10-12, started age 15. Not interested in lung cancer screening Concerns: None Health maintenance: Last screening mammogram 10/2024, 1 year follow-up advised, no evidence of malignancy Last DEXA scan 2022, normal, 10 year follow-up Last colonoscopy 05/2022 with tubular adenoma, 5 year follow-up. Dr. Veloz ROS: General: No fevers, malaise, unintentional weight loss HEENT: No blurred vision, diplopia. No sore throat, nasal congestion, rhinorrhea, sinus pain, ear pain Cardiovascular: No chest pain, palpitations, or leg edema Respiratory: No shortness of breath, wheezing, cough GI: No abdominal pain, nausea, vomiting, diarrhea, constipation, melena, hematochezia : No dysuria, hematuria, increased urinary frequency, decreased urinary output MSK: No myalgia, back pain Neuro: No headaches, weakness, paresthesias Skin: No rashes or lesions EXAM: Constitutional - Awake and Alert, No apparent distress Eyes - PERRL Cardiovascular - S1S2, RRR, No edema Respiratory - Normal lung expansion, Normal respiratory effort, No respiratory distress, CTA bilaterally Extremities - no calf tenderness bilaterally, no swelling Skin - Warm/Dry Neurological - Alert & oriented x3 Psychological - Appropriate affect FOR[facility], [facility] Medical History (Updated 03/23/25 @ 10:52 by TASH Drummond) Urinary incontinence Hematuria Right inguinal hernia Anxiety Low vitamin D level Degenerative joint disease Elevated cholesterol HTN (hypertension) Surgical History S/P hip replacement H/O colonoscopy (~06/05/22) Social History Household Members: Other Housing: House Are you a primary healthcare risk control consultant to a significant other at home: No Do you presently have visiting nurse or other home services: No Patient Tobacco Use Status: Current everyday Tobacco user Tobacco use type: Cigarette Cigarette Packs Per Day: 10 Cigarettes Per Day: 200.0 e-Cigarette/Vaping Use: Never Used Second Hand Smoke Exposure: No service: No Current occupational status: retired Questionnaire PHQ-9 Over the last 2 weeks, how often have you been bothered by any of the following problems? 1. Little interest or pleasure in doing things: not at all 2. Feeling down, depressed, or hopeless: not at all 3. Trouble falling or staying asleep, or sleeping too much: not at all 4. Feeling tired or having little energy: not at all 5. Poor appetite or overeating: not at all 6. Feeling bad about yourself - or that you are a failure or have let yourself or your family down: not at all 7. Trouble concentrating on things, such as reading the newspaper or watching television: not at all 8. Moving or speaking so slowly that other people could have noticed. Or the opposite - being so fidgety or restless that you have been moving around a lot more than usual: not at all 9. Thoughts that you would be better off or of hurting yourself in some way: not at all Total score: 0 Depression Screening Interpretation: Negative Depression Screening Done: Yes 31464 - PHQ-9 Billing: Yes Source: Developed by Drs. Giles Buck, Anneliese Flowers, Jatinder Singh and colleagues, with an educational anthony from [employer]. Thrive Questionnaire Date Thrive assessed: 10/23/24 AUDIT C Alcohol Use Questionnaire (AUDIT-C) 1. How often do you have a drink containing alcohol?: Never 3. How often do you have six or more drinks on one occasion?: Never Total Score: 0 Physical exam (Primary Care) Vital Signs: Last Vital Signs Temp 97.6 F 03/23/25 10:14 Pulse 76 03/23/25 10:14 Resp 18 03/23/25 10:14 BP 138/72 03/23/25 10:14 Pulse Ox 97 03/23/25 10:14 Oxygen Delivery Method Room Air 03/23/25 10:14 BMI result Body Mass Index 31.0 Tobacco/Smoking Status: Tobacco use Status Tobacco use date assessed 03/23/25 03/23/25 10:03 Patient Tobacco Use Status Current everyday Tobacco 03/23/25 10:03 Tobacco use type Cigarette 03/23/25 10:03 e-Cigarette/Vaping Use Never Used 03/23/25 10:17 Depression Screening Interpretation: Negative Thrive Assessment: Date of Thrive Assessment Date Thrive assessed 10/23/24 03/23/25 10:03 Coding Level of Care Code Est Pt Level 4 (69423) Complex EM visit Add On G2211 Diagnoses Primary hypertension I10 Hypertension type: primary hypertension Elevated cholesterol E78.00 Urinary incontinence R32 Tobacco user Z72.0 Additional Codes PHQ-9 - 83876 - PHQ-9 Billing: Yes ([id number]) Assessment & Plan Assessment & Plan (1) HTN (hypertension): Code(s): I10 - Essential (primary) hypertension Category: Medical Qualifiers: Hypertension type: primary hypertension Qualified Code(s): I10 - Essential (primary) hypertension Plan: Controlled. Continue lisinopril. Evaluate renal function electrolyte levels (2) Elevated cholesterol: Code(s): E78.00 - Pure hypercholesterolemia, unspecified Category: Medical Plan: Controlled. Continue simvastatin (3) Urinary incontinence: Code(s): R32 - Unspecified urinary incontinence Category: Medical Plan: Reviewed last note from urology. Proceed with pelvic floor therapy. Continue discussions on Bulkamid. (4) Tobacco user: Code(s): Z72.0 - Tobacco use Category: Social Hx Plan: Commended on efforts towards cessation thus far. Encouraged total cessation. Declines lung cancer screenings Plan Follow-up in the office in 6 months Orders: Orders Basic Metabolic Panel Today I10 - Essential (primary) hypertension Referrals Lung Cancer Screening Referral F17.200 - Nicotine dependence, unspecified, uncomplicated
[2025-03-23 10:14] VITALS: BP 138/72; PULSE 76; RESP 18; TEMP 36.4; O2SAT 97; BMI 31.0
== END 2025-03-23 10:42 | disposition home or self-care (01) ==
PROVIDERS: PCP Physician Assistant; Visit Provider Physician Assistant
DX: I10 Essential (primary) hypertension (principal); E78.00 Pure hypercholesterolemia, unspecified; R32 Unspecified urinary incontinence; Z72.0 Tobacco use

== ENCOUNTER → 2025-03-23 09:57 | Outpatient (BNVA) | payer MEDICARE, SELFPAY | PROVIDERS: PCP Internal Medicine; Visit Provider Physician Assistant | DX: I10 Essential (primary) hypertension (principal); E78.00 Pure hypercholesterolemia, unspecified; R32 Unspecified urinary incontinence; F41.1 Generalized anxiety disorder; Z72.0 Tobacco use; Z79.899 Other long term (current) drug therapy; Z13.31 Encounter for screening for depression | CPT/HCPCS: 36415; 80048; 96127; 99212 ==

== ENCOUNTER 2025-03-23 10:57 | Outpatient (REF) | payer MEDICARE, SELFPAY ==
[2025-03-23 14:22] LABS: Anion Gap 11 (12-20); Blood Urea Nitrogen 17 mg/dL (9-16); Calcium 10.1 mg/dL (8.4-10.2); Carbon Dioxide 31 mmol/L (22-29); Chloride 103 mmol/L (96-108); Estimated Glomerular Filt Rate > 60; Potassium 4.1 mmol/L (3.3-5.1); Sodium 141 mmol/L (135-145)
== END 2025-03-23 10:58 | disposition home or self-care (01) ==
LOC: HO.10HDL 10:57
PROVIDERS: Visit Provider Physician Assistant
DX: Z13.89 Encounter for screening for other disorder (principal)
CPT/HCPCS: 36415; 80048